=== PATIENT | male | born 1970 | race Two or more races ===

== ENCOUNTER 2021-01-19 16:15 | Outpatient (REF) | payer MEDICAID, SELFPAY ==
--- NOTE | ~2021-01-19 | US_ITS ---
EXAMINATION: US VENOUS ULTRASOUND WITH DOPPLER LOWER EXTREMITY, LEFT CLINICAL INFORMATION: Localized edema. Pain. COMPARISON: None TECHNIQUE: Ultrasound of the deep veins is performed from the hip to the calf with compression sonography and color and pulse Doppler assessment. Spectral analysis with color-flow imaging is performed. FINDINGS: There is normal venous compression and respiratory variation and augmented flow. The visualized common femoral vein, superficial femoral vein, profunda femoral vein, popliteal vein, and the trifurcation region shows no evidence of deep venous thrombosis. There is no significant popliteal fossa cyst. If the patient's symptoms persist, followup ultrasound in 5 days 7 days might be of value to exclude proximal propagation from a non-visualized calf vein. US/US venous duplex LE LT IMPRESSION: No DVT demonstrated in the left lower extremity.
== END 2021-01-19 16:16 | disposition home or self-care (01) ==
LOC: HO.US 16:15
PROVIDERS: PCP Internal Medicine Geriatric Medicine; Visit Provider Internal Medicine Geriatric Medicine
DX: R60.0 Localized edema (principal)
CPT/HCPCS: 93971

== ENCOUNTER 2023-07-22 10:05 | Outpatient (REF) | payer MEDICAID, SELFPAY ==
--- NOTE | ~2023-07-22 | XR_ITS ---
EXAMINATION: XR ELBOW, RIGHT CLINICAL INFORMATION: Lateral epicondylitis of right elbow. Pain no injury COMPARISON: None available. TECHNIQUE: AP, lateral, and oblique views of the right elbow. FINDINGS: No significant joint effusion identified. Alignment maintained. Small soft tissue calcifications inferior to the medial epicondyle. XR/XR elbow RT min 3V IMPRESSION: Small soft tissue calcifications inferior to the medial epicondyle, possibly related to epicondylitis. Correlation with clinical exam recommended. Recommend follow-up imaging in 10-14 days if fracture is suspected.
== END 2023-07-22 10:06 | disposition home or self-care (01) ==
LOC: HO.HHCX 10:05
PROVIDERS: Visit Provider Internal Medicine Geriatric Medicine
DX: M77.11 Lateral epicondylitis, right elbow (principal)
CPT/HCPCS: 36415; 73080; 80053; 80061; 85025; 86803; 87389

== ENCOUNTER 2023-07-22 10:26 | Outpatient (REF) | payer MEDICAID, SELFPAY ==
[2023-07-22 11:27] LABS: MANUAL DIFF FLAG NO
[2023-07-22 11:41] LABS: Basophils Percent Auto 0.6 % (0-2); Eosinophils Absolute Auto 0.1 X10*3/uL (0.0-0.4); Hematocrit 47.7 % (42.0-52.0); Hemoglobin 15.3 g/dl (14.0-18.0); Imm Gran Abs Auto 0.02 X10*3/uL (0.00-0.03); Imm Gran Pct Auto 0.3 % (0.0-0.4); Lymphocytes Absolute Auto 1.6 X10*3/uL (1.2-4.9); Mean Corpuscular HGB Conc 32.1 g/dl (31.0-36.0); Mean Corpuscular Hemoglobin 27.8 pg (27.0-33.0); Mean Corpuscular Volume 86.7 fL (80.0-98.0); Mean Platelet Volume 10.8 fL (9.4-12.4); Monocytes Absolute Auto 0.6 X10*3/uL (0.1-1.2); Monocytes Percent Auto 9.1 % (2-11); Neutrophils Absolute Auto 4.4 x10*3/uL (2.0-8.3); Platelet Count 213 X10*3/uL (160-400); Red Cell Distribution Width 13.9 % (11.0-16.0); White Blood Count 6.7 X10*3/uL (4.8-10.8)
[2023-07-22 12:46] LABS: Alanine Aminotransferase 26 U/L (0-40); Albumin Level 4.4 g/dL (3.5-5.0); Alkaline Phosphatase 95 U/L (39-117); Anion Gap 14 (12-20); Aspartate Amino Transferase 22 U/L (5-37); Bilirubin Total 0.4 mg/dL (0.0-1.0); Blood Urea Nitrogen 13 mg/dL (9-16); Calcium 9.8 mg/dL (8.4-10.2); Carbon Dioxide 25 mmol/L (22-29); Chloride 106 mmol/L (96-108); Cholesterol 203 mg/dL (<200); Estimated Glomerular Filt Rate > 60; Glucose Random 90 mg/dL (60-115); HDL Cholesterol 51 mg/dL (>40); LDL Cholesterol Calculated 129 mg/dL (<100); Potassium 3.7 mmol/L (3.3-5.1); Sodium 141 mmol/L (135-145); Total Protein 7.4 g/dL (6.5-8.0); Triglycerides 119 mg/dL (<150)
[2023-07-23 08:19] LABS: HIV AB/AG Nonreactive (Nonreactive); HIV Num 1 0.05 S/CO (0.00-0.99); ~HepC Num1 0.03 S/CO (0.00-0.79); ~Hepatitis C Antibody Nonreactive (Nonreactive)
== END 2023-07-22 10:27 | disposition home or self-care (01) ==
LOC: HO.HHCL 10:26
PROVIDERS: Visit Provider Internal Medicine Geriatric Medicine
DX: I10 Essential (primary) hypertension (principal); E78.00 Pure hypercholesterolemia, unspecified; Z11.59 Encounter for screening for other viral diseases; Z11.4 Encounter for screening for human immunodeficiency virus [HIV]
CPT/HCPCS: 36415; 80053; 80061; 85025; 86803; 87389

== ENCOUNTER 2024-02-09 16:31 | Outpatient (REF) | payer MEDICAID, SELFPAY ==
[2024-02-09 18:10] LABS: Anion Gap 12 (12-20); Blood Urea Nitrogen 18 mg/dL (9-16); Calcium 9.7 mg/dL (8.4-10.2); Carbon Dioxide 25 mmol/L (22-29); Chloride 109 mmol/L (96-108); Estimated Glomerular Filt Rate > 60; Glucose Random 75 mg/dL (60-115); Potassium 3.3 mmol/L (3.3-5.1); Sodium 143 mmol/L (135-145)
== END 2024-02-09 16:32 | disposition home or self-care (01) ==
LOC: HO.HHCL 16:31
PROVIDERS: Visit Provider Internal Medicine Geriatric Medicine
DX: I10 Essential (primary) hypertension (principal)
CPT/HCPCS: 36415; 80048

== ENCOUNTER 2024-11-05 14:23 | Outpatient (AMB) | payer OTHER, SELFPAY ==
--- NOTE | 2024-11-05 14:36 | MHC.OFFVIS ---
Vital Signs 11/05/24 14:44 Height 6 ft 1 in Weight 223 lb 8 oz BMI 29.5 BP 141/91 H Blood Pressure Location Lt brachial Position Sitting Pulse 68 Pulse Source Pulse Oximeter Intake Visit Reasons: Chronic low back pain Intake Note: Pain today 04/07 Allergies No Known Allergies Allergy (Verified 11/05/24 14:41) HPI HPI Chronic low back pain: Details: Patient is a pleasant 54 years old male with history of chronic low back pain and chronic left sacroiliac joint pain, presents for chronic low back pain with left radiculopathy. Denies any recent injury, trauma, or falls. Patient completed multiple courses of physical therapy, continues ongoing home exercise therapy at home and takes gabapentin, NSAID and Percocet with continued symptoms and daily low back pain at rest, sleep and with activities. He was seen in our office in 2019 and underwent therapeutic left SI joint injection which provided him about 50-60% pain relief for 3 months. Patient was not able to continue with our office due to loss of insurance. 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 He is not able to continue swimming or Basketball. Back pain increases with flexion forward, changing positions, prolonged sitting or standing or sleeping on the left side. Denies any fever or chills, abdominal and groin pain, foot drop, bladder or bowel dysfunction, or saddle anesthesia. Past Procedures: 12/14/2019: Left Therapeutic SI joint [id number] pain relief for 3 months Location: Lower back radiates down left buttock and into left leg Duration: Chronic pain for many years Characteristics of symptom or complaint: Aching, sharp, stabbing, pinching, radiating Aggravating or associated factors: Sitting for long periods of time, changing positions, Relieving factors: Gabapentin, Oxycodone, Tylenol, Ibuprofen, OTC patches/creams Treatment: PT, left SI injections (2019-Dr. Choudhary) HPI Comments Details: [facility] Medical History (Updated 11/05/24 @ 15:23 by TONI Eastman) Depression with anxiety Hypertension Chronic sacroiliac joint pain Chronic left-sided lumbar radiculopathy Social History (Updated 11/05/24 @ 14:39 by Dulce Guerra) Alcohol intake: current Alcohol type: wine Patient Tobacco Use Status: Never used Tobacco Review of Systems Const All systems reviewed & are unremarkable except as noted in HPI and below Physical Exam Vital Signs: Last Vital Signs Pulse 68 11/05/24 14:44 BP 141/91 H 11/05/24 14:44 BMI result Body Mass Index 29.5 General: Appears afebrile. Alert and oriented. Mood and affect appropriate. Follows and participates in conversation appropriately. Respiratory effort is unlabored. No cough. No nasal discharge. Able to transition from sit to stand unassisted. Ambulates with bilaterally normal heel strike and toe off. General: Yes no CVA tenderness Back/Spine/Pelvis Other: Patient is able to walk and stand on heels and tip toes with mild difficulty on the left otherwise demonstrating good motor tone. No limping. Can flex forward to 70-75 degrees and extend to 5-10 degrees before experiencing lumbar pain. Demonstrates 5/5 right and 4/5 left strength of quadriceps bilaterally as well as flexion/dorsiflexion of bilateral feet against resistance. 2+ pedal pulses bilaterally. Straight leg rise with dorsiflexion is negative bilaterally. +2 right +1 left patellar and +1 achilles reflexes bilaterally. Facet loading test positive bilaterally. Arlen sign, Jose?s, Gaenslen, Pelvic compression and Stinchfield tests are positive on the left. No groin pain with I/E hip rotations. No tenderness in the bilateral GTB areas. Valsalva maneuver is negative. Back: no CVA tenderness Cervical Spine: cervical ROM normal, cervical muscular tenderness, No Cervical spine tenderness and No step off deformity Thoracic/Lumbar Spine: thoracic and lumbar spine normal to inspection, No Thoracic/lumbar spine scar(s), Lasegue's sign negative, straight leg raise negative bilaterally, pain with thoraco-lumbar ROM, paraspinal muscle tenderness, thoraco-lumbar ROM limited, No thoracic spinal tenderness and lumbar spinal tenderness (L4-S1) Pelvis: buttock tenderness on the left and sciatic notch tenderness on the left Sacroiliac joints: bilaterally tender to palpation Results Reviewed Results Reviewed: XR LUMBOSACRAL SPINE WITH OBLIQUES 10/06/2019 CLINICAL INFORMATION: Radiculopathy, lumbar region. No injury. COMPARISON: No relevant prior imaging. TECHNIQUE: 5 views FINDINGS: Alignment is normal. Vertebral heights are preserved. No acute fracture. Intervertebral disc spaces are maintained at all levels. Sacroiliac joints are symmetric. Visualized bowel gas pattern is normal. IMPRESSION: Unremarkable lumbar spine radiograph Assessment & Plan Assessment & Plan (1) Lumbosacral spondylosis: Code(s): M47.817 - Spondylosis without myelopathy or radiculopathy, lumbosacral region Category: Medical (2) Chronic sacroiliac joint pain: Code(s): M53.3 - Sacrococcygeal disorders, not elsewhere classified; G89.29 - Other chronic pain Category: Medical (3) Chronic left-sided lumbar radiculopathy: Code(s): M54.16 - Radiculopathy, lumbar region Category: Medical (4) Lumbosacral spondylosis: Code(s): M47.817 - Spondylosis without myelopathy or radiculopathy, lumbosacral region Category: Medical (5) Numbness and tingling of left upper and lower extremity: Code(s): R20.0 - Anesthesia of skin; R20.2 - Paresthesia of skin Category: Medical Plan Lumbar spine and sacroiliac joint imaging to assess degree of degenerative changes, any subluxation, listhesis, compression fractures or pars defects and MRI of the lumbar spine to assess for neural integrity and compression to evaluate on acute on chronic left sided radiculopathy and SI joint pain. Patient is taking gabapentin, NSAID, and opioid medications, heat therapy, completed multiple courses of PT, and ongoing home exercise therapy, with continued symptoms. Patient will return to the clinic to discuss results of the MRI findings when it is done and consider interventional therapy as indicated. All questions been answered and patient agreed with the treatment plan. Follow-up for MRI/x-ray results and sooner. Orders: Orders XR lumbar spine 4V min Today G89.29 - Other chronic pain, M47.817 - Spondylosis without myelopathy or radiculopathy, lumbosacral region, M53.3 - Sacrococcygeal disorders, not elsewhere classified MR lumbar spine wo con Today M47.817 - Spondylosis without myelopathy or radiculopathy, lumbosacral region, M54.16 - Radiculopathy, lumbar region, R20.0 - Anesthesia of skin, R20.2 - Paresthesia of skin XR sacroiliac joint min 3V Today G89.29 - Other chronic pain, M47.817 - Spondylosis without myelopathy or radiculopathy, lumbosacral region, M53.3 - Sacrococcygeal disorders, not elsewhere classified Coding Level of Care Code New Pt Level 4 (33859) Complex EM visit Add On G2211 Diagnoses Lumbosacral spondylosis M47.817 Chronic sacroiliac joint pain M53.3; G89.29 Chronic left-sided lumbar radiculopathy M54.16 Numbness and tingling of left upper and lower extremity R20.0; R20.2
[2024-11-05 14:44] VITALS: BP 141/91; PULSE 68; BMI 29.5
== END 2024-11-05 15:09 | disposition home or self-care (01) ==
PROVIDERS: PCP Internal Medicine Geriatric Medicine; Visit Provider Nurse Practitioner Family
DX: M47.817 Spondylosis without myelopathy or radiculopathy, lumbosacral region (principal); M53.3 Sacrococcygeal disorders, not elsewhere classified; G89.29 Other chronic pain; M54.16 Radiculopathy, lumbar region; R20.0 Anesthesia of skin; R20.2 Paresthesia of skin
CPT/HCPCS: 99204

== ENCOUNTER → 2024-11-05 14:23 | Outpatient (BNVA) | payer OTHER, SELFPAY | PROVIDERS: PCP Internal Medicine Geriatric Medicine; Visit Provider Nurse Practitioner Family ==

== ENCOUNTER 2024-11-05 15:17 | Outpatient (REF) | payer OTHER, SELFPAY ==
--- NOTE | ~2024-11-05 | XR_ITS ---
CLINICAL HISTORY: M47.817 - Spondylosis without myelopathy or radiculopathy, lumbosacral r... 5 views lumbar spine Comparison: None Findings: Normal vertebral body alignment. No acute fractures or dislocation. No significant degenerative change. IMPRESSION: No acute findings. This document has been electronically signed by: Arpit Moyer MD on 11/09/2024 07:01:24
--- NOTE | ~2024-11-05 | XR_ITS ---
CLINICAL HISTORY: M47.817 - Spondylosis without myelopathy or radiculopathy, lumbosacral r... 3 views sacroiliac joints Comparison: None Findings No acute fractures. No significant degenerative change. No erosions. IMPRESSION: No acute findings This document has been electronically signed by: Arpit Moyer MD on 11/09/2024 07:15:07
--- OUTSIDE RECORDS SUMMARY | 2024-11-05 15:20 | XMS_ITS | Encounter Summary ---
Author Organization [employer] Address [address] [place] [address] 7t [place] [address] Care Team Providers Care Customer Contact Representative Name Role Phone Name, Osbaldo RASCON Primary Care Provider [phone] Reason for Visit * Reason Onset Date Comments Med Refill 03/29/2024 Encounter Details Date Type Department Care Team (Late st Contact Info) Description 03/29/2024 Refill [facility] [address] [place], [place] [phone] Betsy Nino MD [address] [place], [place] [phone] Allergic rhinitis, unspecified seasonality, unspecified trigger Social History Tobacco Use Types Packs/Day Years Used Date Smoking Tobacco: Never Alcohol Use Standard Drinks/Week Comments Yes 0 (1 standard drink = 0.6 oz pur e alcohol) occassional Depression Answer Date Recorded Patient Health Questionnaire-9 Score 0 02/09/2024 Patient Health Questionnaire-9 Score 0 02/09/2024 Last PHQ-9: Questionnaire Data Not on file 0 02/09/2024 Housing Stability Answer Date Recorded What is your housing situation today? I have christina nunez 02/09/[address] you li ve. Do you have problems with any of the following? None of the above 02/09/2024 Food Insecurity Answer Date Recorded Within the past 12 months, y ou worried that your food would run out before you got money to buy more: Never True 02/09/2024 Within the past 12 months,th e food you bought just didn't last and you didn't have enough money to get more: Never True Transportation Answer Date Recorded In the past 12 months, has l ack of transportation kept you from medical appts, meetings, work or from getting things needed for daily living? No 02/09/2024 Utilities Answer Date Recorded In the past 12 months, has t he electric, gas, oil or water company threatened to shut off services in your home? No 02/09/2024 Depression Answer Date Recorded Patient Health Questionnaire-2 Score 0 02/09/2024 Sex and Gender Information Value Date Recorded Sex Assigned at Male 07/29/2022 10:31 AM EDT Legal Sex Male 10:31 AM EDT Gender Identity Male 07/29/2022 10:31 AM EDT Sexual Orientation Straight 07/29/2022 10 :31 AM EDT documented as of this encounter Plan of Treatment Upcoming Encounters Date Type Department Care Team (Late st Contact Info) Description 12/29/2024 9:00 AM EDT Clinical Support [facility] [address] [place] [id number] Juliana Pinedo RN documented as of this encounter Goals Goal Patient Goal Type Associated Problems Recent Progress Patient-Stated? Author Record your blood pressure once per day Blood Pressure No PuLilian ramirez, PharmD Blood Pressure < 140/90 Blood Pressure 134/84( 025 9:22 AM EST) No Lilian Baugh, PharmD documented as of this encounter Visit Diagnoses Diagnosis Allergic rhinitis, unspecified seasonality, unspecified trigger documented in this encounter Additional Health Concerns Assessment Noted Time PHQ-9 Depression Total Score: 0 02/09/20 24 3:17 PM EDT documented as of this encounter Care Teams Customer Contact Representative Relationship Specialty Start Date End Date Name, MD Osbaldo [address] [place] [id number] PCP - General Family Medicine 09/02/19 documented as of this encounter
--- OUTSIDE RECORDS SUMMARY | 2024-11-05 15:20 | XMS_ITS | Encounter Summary ---
Author Organization [employer] Address [address] [place] [address] 7[address] [place] [address] Care Team Providers Care Locomotive Lubricating Systems Clerk Name Role Phone Name, Osbaldo RASCON Primary Care Provider [phone] Reason for Visit * Reason Onset Date Comments Med Refill 11/01/2024 Encounter Details Date Type Department Care Team (Late st Contact Info) Description 11/01/2024 Refill [facility] [address] [place], [place] [phone] Name, MD Osbaldo [address] [place] [address] Chronic low back pain, unspecified back pain laterality, unspecified whether sciatica present Social History Tobacco Use Types Packs/Day Years [...] AM EDT documented as of this encounter Miscellaneous Notes * Addendum Note - Favian Pinedo RN - 11/02/2024 11:28 AM ESTAddended by: FAVIAN PINEDO on: 11/02/2024 11:28 AM Modules accepted: Orders * Telephone Encounter - Marya Weston LPN - 11/01/2024 1:05 PM EST Received request on oxyCODONE-acetaminophen (Percocet) 10-325 MG tablet documented in this encounter Plan of Treatment Upcoming Encounters Date Type Department Care Team (Late st Contact Info) Description 12/29/2024 9:00 AM EDT Clinical Support [facility] [address] [place] [phone] Favian Pinedo RN documented as of this encounter Goals Goal Patient Goal Type Associated Problems Recent Progress Patient-Stated? Author Record your blood pressure once per day Blood Pressure No Lilian Baugh PharmD Blood Pressure < 140/90 Blood Pressure 134/84( 025 9:22 AM EST) No Lilian Baugh PharmD documented as of this encounter Visit Diagnoses Diagnosis Chronic low back pain, unspecified back pain laterality, unspecified whether sciatica present documented in this encounter Additional Health Concerns Assessment Noted Time PHQ-9 Depression Total Score: 0 02/09/20 24 3:17 PM EDT documented as of this encounter Care Teams Locomotive Lubricating Systems Clerk Relationship Specialty Start Date End Date Name, MD Osbaldo [address] [place] [address] PCP - General Family Medicine 09/02/19 documented as of this encounter
--- OUTSIDE RECORDS SUMMARY | 2024-11-05 15:20 | XMS_ITS | Encounter Summary ---
Author Organization [employer] Address [address] [place] [address] 7t [place] [address] Care Team Providers Care Industrial Coffee Grinder Name Role Phone Name, Osbaldo RASCON Primary Care Provider [phone] Lilian Baugh PharmD Unavailable [phone] Reason for Visit * Reason Comments Med Refill Encounter Details Date Type Department Care Team (Late st Contact Info) Description 03/03/2023 Refill [facility] [address] [place], [place] [phone] Name, MD sObaldo [address] [place] [address] Lumbago with sciatica, left side Social History Tobacco Use Types Packs/Day Years Used Date Smoking Tobacco: Never Alcohol Use Standard Drinks/Week Comments Never 0 (1 standard drink = 0.6 oz pur e alcohol) Depression Answer Date Recorded Patient Health Questionnaire-9 Score 8 01/20/2023 Depression Answer Date Recorded Patient Health Questionnaire-2 Score 2 01/20/2023 Sex and Gender Information Value Date Recorded Sex Assigned at Male 07/29/2022 10:31 AM EDT Legal Sex Male 10:31 AM EDT Gender Identity Male 07/29/2022 10:31 AM EDT Sexual Orientation Straight 07/29/2022 10 :31 AM EDT COVID-19 Exposure Response Date Recorded In the last 10 days, have yo u been in contact with someone who was confirmed or suspected to have Coronavirus/COVID-19? No / Unsure 02/04/2023 6:57 AM EDT documented as of this encounter Plan of Treatment Upcoming Encounters Date Type Department Care Team (Late st Contact Info) Description 12/29/2024 9:00 AM EDT Clinical Support [facility] [address] [place] [address] Juliana Pinedo, RN documented as of this encounter Visit Diagnoses Diagnosis Lumbago with sciatica, left side documented in this encounter Additional Health Concerns Assessment Noted Time PHQ-9 Depression Total Score: 8 01/21/20 23 3:35 PM EDT documented as of this encounter Care Teams Industrial Coffee Grinder Relationship Specialty Start Date End Date Name, MD Osbaldo [address] [place] [id number] PCP - General Family Medicine 09/02/19 Lilian Baugh PharmD [address] [place] [phone] Pharmacist Internal Medicine 05/02/23 02/24/24 documented as of this encounter
--- OUTSIDE RECORDS SUMMARY | 2024-11-05 15:20 | XMS_ITS | Encounter Summary ---
Author Organization [employer] Address [address] [place] [address] 7[address] [place] [address] Care Team Providers Care Lead Miner Blasting Name Role Phone NameOsbaldo MD Primary Care Provider [phone] Lilian Baugh PharmD Unavailable [phone] Reason for Visit * Reason Onset Date Comments Med Refill 01/29/2024 Encounter Details Date Type Department Care Team ([facility] st Contact Info) Description 01/29/2024 Refill [facility] [address] [place], [place] [phone] Name, MD Osbaldo [address] [place] [address] Social History Tobacco Use Types Packs/Day Years Used Date Smoking Tobacco: Never Alcohol Use Standard Drinks/Week Comments Yes 0 (1 standard drink = 0.6 oz pur e alcohol) occassional Depression Answer Date Recorded Patient Health Questionnaire-9 Score 8 01/20/2023 Housing Stability Answer Date Recorded What is your housing situation today? I have christina nunez 07/21/[address] you li ve. Do you have problems with any of the following? None of the above 07/21/2023 Food Insecurity Answer Date Recorded Within the past 12 months, y ou worried that your food would run out before you got money to buy more: Never True 07/21/2023 Within the past 12 months,th e food you bought just didn't last and you didn't have enough money to get more: Never True Transportation Answer Date Recorded In the past 12 months, has l ack of transportation kept you from medical appts, meetings, work or from getting things needed for daily living? No 07/21/2023 Utilities Answer Date Recorded In the past 12 months, has t he electric, gas, oil or water company threatened to shut off services in your home? No 07/21/2023 Depression Answer Date Recorded Patient Health Questionnaire-2 [...] Description 12/29/2024 9:00 AM EDT Clinical Support [facility] [address] [place] [address] Juliana Pinedo RN documented as of this encounter Goals Goal Patient Goal Type Associated Problems Recent Progress Patient-Stated? Author Record your blood pressure once per day Blood Pressure No Puia, Lilian, PharmD Blood Pressure < 140/90 Blood Pressure 134/84( 025 9:22 AM EST) No Puia, Lilian, PharmD documented as of this encounter Visit Diagnoses Not on filedocumented in this encounter Additional Health Concerns Assessment Noted Time PHQ-9 Depression Total Score: 8 01/21/20 23 3:35 PM EDT documented as of this encounter Care Teams Lead Miner Blasting Relationship Specialty Start Date End Date Name, MD Osbaldo [address] [place] [id number] PCP - General Family Medicine 09/02/19 Puia, Lilian, PharmD [address] [place] [phone] Pharmacist Internal Medicine 05/02/23 02/24/24 documented as of this encounter
--- OUTSIDE RECORDS SUMMARY | 2024-11-05 15:20 | XMS_ITS | Encounter Summary ---
Author Organization [employer] Address [address] [place] [address] 7t [place] [address] Care Team Providers Care Hat Brusher Machine Name Role Phone NameOsbaldo MD Primary Care Provider [phone] Lilian Baugh PharmD Unavailable [phone] Reason for Visit * Reason Comments Med Refill Encounter Details Date Type Department Care Team (Late st Contact Info) Description 09/06/2022 Refill [facility] [address] [place] [phone] NameOsbaldo MD [address] [place] [phone] Asthma, unspecified asthma severity, unspecified whether complicated, unspecified whether persistent (Primary Dx); Lumbago with sciatica, left side Social History Tobacco Use Types Packs/Day Years Used Date Smoking Tobacco: Never Assessed Sex and Gender Information Value Date Recorded Sex Assigned at Male 07/29/2022 10:31 AM EDT Legal Sex Male 10:31 AM EDT Gender Identity Male 07/29/2022 10:31 AM EDT Sexual Orientation Straight 07/29/2022 10 :31 AM EDT documented as of this encounter Plan of Treatment Upcoming Encounters Date Type Department Care Team (Late st Contact Info) Description 12/29/2024 9:00 AM EDT Clinical Support [facility] [address] [place] [phone] Juliana Pinedo RN documented as of this encounter Visit Diagnoses Diagnosis Asthma, unspecified asthma severity, unspecified whether complicated, unspecified whether persistent- Primary Lumbago with sciatica, left side documented in this encounter Care Teams Hat Brusher Machine Relationship Specialty Start Date End Date Osbaldo Gentile MD [address] [place] [address] PCP - General Family Medicine 09/02/19 Lilian Baugh, Anastasia [address] [place] [address] Pharmacist Internal Medicine 05/02/23 02/24/24 documented as of this encounter
--- OUTSIDE RECORDS SUMMARY | 2024-11-05 15:20 | XMS_ITS | Encounter Summary ---
Author Organization [employer] Address [address] [place] [address] 7t [place] [address] Care Team Providers Care Psychologist Engineering Name Role Phone Osbaldo Gentile MD Primary Care Provider [phone] Reason for Referral * Consultation (Routine) - Pending Review Specialty Diagnoses / Procedures Referred By Rody t Referred To Contact Urology Diagnoses BPH associated with nocturia Osbaldo Gentile MD [address] [place] [address] Phone: tel: fax: [facility] [address] [place] [address] Drive [address] [place], [place] Phone: tel: fax: Referral ID Status Reason Start Date Expiration Date Visits Requested Visits Authorized [id number] Pending Review Specialty Services Required 10/19/2024 10/19/2025 1 1 * Consultation (Routine) - Pending Review Specialty Diagnoses / Procedures Referred By Contac t Referred To Contact Pain Medicine Diagnoses Chronic low back pain with sciatica, sciatica laterality unspecified, unspecified back pain laterality Osbaldo Gentile MD [address] [place] [address] Phone: tel: fax: [facility] [address] [place] [address] Phone: tel: fax: Referral ID Status Reason Start Date Expiration Date Visits Requested Visits Authorized [id number] Pending Review Specialty Services Required 10/19/2024 10/19/2025 1 1 Reason for Visit * Reason Comments Follow-up Encounter Details Date Type Department Care Team ([facility] st Contact Info) Description 10/19/2024 9:15 AM EST Office Visit [facility] [address] [facility] [place] [address] NameOsbaldo MD [address] [facility] [place] [address] Essential hypertension (Primary Dx); Moderate persistent asthma, unspecified whether complicated; Chronic low back pain with sciatica, sciatica laterality unspecified, unspecified back pain laterality; Other male erectile dysfunction; BPH associated with nocturia; Healthcare maintenance Social History Tobacco Use Types Packs/Day Years [...] AM EDT documented as of this encounter Last Filed Vital Signs Vital Sign Reading Time Taken Comments Blood Pressure 134/84 10/19/2024 9:22 AM EST Pulse 71 10/19/2024 9:22 AM EST Temperature 36.3 ??C (97.3 ??F) 10/19/2024 9:22 AM ES T Respiratory Rate 16 10/19/2024 9:22 AM EST Oxygen Saturation 97% 10/19/2024 9:22 AM EST Inhaled Oxygen Concentration - - Weight 103 kg (226 lb) 10/19/2024 9:22 AM EST Height 185.4 cm (6' 1 ) 10/19/2024 9:22 AM EST Body Mass Index 29.82 10/19/2024 9:22 AM EST documented in this encounter Progress Notes * Osbaldo Gentile MD - 10/19/2024 9:15 AM EST Subjective Patient ID: Hank Bess is a 54 y.o. male who presents for Follow-up. Patient comes for a follow up visit and we discussed several issues. BP is well controlled on his current meds. He is using meds daily. He tells me had asthma symptoms last week. Currently no cough or wheezing or SOB but using Albuterol often. He ran out of VeraLightair weeks ago He suffers with chronic low back pain and asked for referral to the [facility] pain clinic. He was seen there in the past but was lost to follow up due to not having insurance. No leg weakness, no associated GI or complaints and no recent trauma. He asked for another referral to urology due to persistent nocturia despite the use of Flomax. I referred him in the past but this was canceled due to lack of insurance. He tells me he has upcoming appointment for colonoscopy in March and that he plans to keep. Review of Systems Constitutional: Negative for chills, fatigue and fever. HENT: Negative for sore throat. Respiratory: Negative for cough, chest tightness and shortness of breath. Cardiovascular: Negative for chest pain, palpitations and leg swelling. Gastrointestinal: Negative for abdominal pain and blood in stool. Musculoskeletal: Positive for back pain. Visit Vitals BP 134/84 (BP Location: Right arm, Patient Position: Sitting, BP Cuff Size: Large adult) Pulse 71 Temp 97.3 ??F (36.3 ??C) (Temporal) Resp 16 Ht 6' 1 (1.854 m) Wt 226 lb (103 kg) SpO2 97% BMI 29.82 kg/m?? Smoking Status Never BSA 2.3 m?? Objective Physical Exam Constitutional: Appearance: Normal appearance. Cardiovascular: Rate and Rhythm: Normal rate and regular rhythm. Heart sounds: No murmur heard. Pulmonary: Effort: Pulmonary effort is normal. No respiratory distress. Breath sounds: No wheezing, rhonchi or rales. Abdominal: Palpations: Abdomen is soft. Tenderness: There is no abdominal tenderness. Musculoskeletal: Right lower leg: No edema. Left lower leg: No edema. Neurological: Mental Status: He is alert. Assessment/Plan Diagnoses and all orders for this visit: Essential hypertension Comments: Continue current medications. Moderate persistent asthma, unspecified whether complicated Comments: Continue current inhalers. I refilled his Advair. Orders: - albuterol (2.5 MG/3ML) 0.083% nebulizer solution; INHALE 1 AMPULE USING A NEBULIZER THREE TIMES DAILY - fluticasone-salmeterol (Advair HFA) 115-21 MCG/ACT inhaler; INHALE 2 PUFFS BY MOUTH TWICE DAILY RINSE MOUTH AFTER USING. Chronic low back pain with sciatica, sciatica laterality unspecified, unspecified back pain laterality Comments: Continue current dose of pain medication. Referral back to [facility] pain clinic. Orders: - Referral to Pain Medicine; Future Other male erectile dysfunction Comments: The patient asked me to discontinue Viagra and prescribe Cialis instead and I agree. Referral to urology. BPH associated with nocturia Comments: Referral to urology. Orders: - Referral to Urology; Future Healthcare maintenance Comments: Colonoscopy scheduled for April 05 Other orders - albuterol (Ventolin HFA) 108 (90 Base) MCG/ACT inhaler; INHALE 2 PUFFS BY MOUTH EVERY 4 TO 6 HOURS NEEDED - tadalafil (Cialis) 20 MG tablet; Take 1 tablet (20 mg) by mouth if needed each day for erectile dysfunction. documented in this encounter Plan of Treatment Upcoming Encounters Date Type Department Care Team (Late st Contact Info) Description 12/29/2024 9:00 AM EDT Clinical Support [facility] [address] [place] [address] Juliana Pinedo, TOÑO Scheduled Referrals Name Type Priority Associated Diagnoses Orde r Schedule Referral to Pain Medicine Outpatient Referral Routine Chronic low back pain with sciatica, sciatica laterality unspecified, unspecified back pain laterality Expected: 10/19/2024 (Approximate), Expires: 10/19/2025 Referral to Urology Outpatient Referral Routine BPH associated with nocturia Expected: 10/19/2024 (Approximate), Expires: 10/19/2025 documented as of this encounter Goals Goal Patient Goal Type Associated Problems Recent Progress Patient-Stated? Author Record your blood pressure once per day Blood Pressure No Puia, Lilian, PharmD Blood Pressure < 140/90 Blood Pressure 134/84( 025 9:22 AM EST) No Puia, Lilian, PharmD documented as of this encounter Visit Diagnoses Diagnosis Essential hypertension- Primary Unspecified essential hypertension Moderate persistent asthma, unspecified whether complicated Chronic low back pain with sciatica, sciatica laterality unspecified, unspecified back pain laterality Other male erectile dysfunction BPH associated with nocturia Healthcare maintenance documented in this encounter Additional Health Concerns Assessment Noted Time PHQ-9 Depression Total Score: 0 02/09/20 24 3:17 PM EDT documented as of this encounter Care Teams Psychologist Engineering Relationship Specialty Start Date End Date Name, MD Osbaldo [address] [place] [address] PCP - General Family Medicine 09/02/19 documented as of this encounter
--- OUTSIDE RECORDS SUMMARY | 2024-11-05 15:20 | XMS_ITS | Encounter Summary ---
Author Organization [employer] [facility] Address [address] [place] [address] 7t [place] [address] Care Team Providers Care Furniture Stainer Name Role Phone Name, Osbaldo RASCON Primary Care Provider [phone] Lilian Baugh PharmD Unavailable [phone] Reason for Visit * Reason Comments Med Refill Encounter Details Date Type Department Care Team (Late Contact Info) Description 05/25/2023 Refill [facility] [address] [place] [address] [phone] Name, MD Osbaldo [address] [place] [address] Social History Tobacco Use Types Packs/Day Years [...] Description 12/29/2024 9:00 AM EDT Clinical Support [facility] [address] [place] [address] [phone] Juliana Pinedo RN documented as of this encounter Goals Goal Patient Goal Type Associated Problems Recent Progress Patient-Stated? Author Record your blood pressure once per day Blood Pressure No Lilian Baugh, PharmD Blood Pressure < 140/90 Blood Pressure 134/84( 025 9:22 AM EST) No Lilian Baugh PharmD documented as of this encounter Visit Diagnoses Not on filedocumented in this encounter Additional Health Concerns Assessment Noted Time PHQ-9 Depression Total Score: 8 01/21/20 23 3:35 PM EDT documented as of this encounter Care Teams Furniture Stainer Relationship Specialty Start Date End Date Name, MD Osbaldo [address] [place] [address] PCP - General Family Medicine 09/02/19 Lilian Baugh PharmD [address] [place] [address] Pharmacist Internal Medicine 05/02/23 02/24/24 documented as of this encounter
--- OUTSIDE RECORDS SUMMARY | 2024-11-05 15:20 | XMS_ITS | Encounter Summary ---
Author Organization [employer] Address [address] [place] [address] 7t [place] [address] Care Team Providers Care Formula Weigher Name Role Phone Name, Osbaldo RASCON Primary Care Provider [phone] Reason for Visit * Reason Onset Date Comments Med Refill 10/06/2024 Encounter Details Date Type Department Care Team (Late st Contact Info) Description 10/06/2024 Refill [facility] [address] [place] [address] Name, MD Osbaldo [address] [place] [address] Chronic low back pain, unspecified back pain [...] as of this encounter Miscellaneous Notes * Telephone Encounter - [place] Scooter - 10/06/2024 3:44 PM EST TC from pt requesting medication refill. Medications needing refill : oxyCODONE-acetaminophen (Percocet) 10-325 MG tablet To be sent to: [facility] documented in this encounter Plan of Treatment Upcoming Encounters Date Type Department Care Team (Late st Contact Info) Description 12/29/2024 9:00 AM EDT Clinical Support [facility] [address] [place] [address] Juliana Pinedo RN documented as of this [...] documented as of this encounter Care Teams Formula Weigher Relationship Specialty Start Date End Date Name, MD Osbaldo [address] [place] [address] PCP - General Family Medicine 09/02/19 documented as of this encounter
--- OUTSIDE RECORDS SUMMARY | 2024-11-05 15:20 | XMS_ITS | Encounter Summary ---
Author Organization [employer] Address [address] [place] [address] 7t [place] [address] Care Team Providers Care Vice President Investor Relations Name Role Phone Name, Osbaldo RASCON Primary Care Provider [phone] Reason for Visit * Reason Onset Date Comments Chart prep 10/11/2024 Encounter Details Date Type Department Care Team ([facility] st Contact Info) Description 10/11/2024 Telephone [facility] [address] [place] [address] Sharmaine Lim MA Chart prep Social History Tobacco Use Types Packs/Day Years [...] encounter Miscellaneous Notes * Telephone Encounter - Sharmaine Lim MA - 10/11/2024 9:54 AM EST Chart Prep Labs: done Images: done Vaccines due: yes Referrals: appt cancelled Referral cancelled due to typewriter ribbon winder or front office specialist unable to verify patients insurance. Per front office specialist Tawnya spoke with patient and patient denied any [employer] plan and stated he has [employer] for years and wouldn't have anything else. Once front office specialist tried to run insurance it came back inactive. Patient denies [employer] insurance. Unable to proceed with referral. Message sent to referring provider. Screenings: colonoscopy Overdue care gaps: Sbirt documented in this encounter Plan of Treatment Upcoming Encounters Date Type Department Care Team (Late st Contact Info) Description 12/29/2024 9:00 AM EDT Clinical Support [facility] [address] [place] [address] Juliana Pinedo RN documented as of this [...] documented as of this encounter Care Teams Vice President Investor Relations Relationship Specialty Start Date End Date Name, MD Osbaldo [address] [place] [address] PCP - General Family Medicine 09/02/19 documented as of this encounter
--- OUTSIDE RECORDS SUMMARY | 2024-11-05 15:20 | XMS_ITS | Encounter Summary ---
Author Organization [employer] Address [address] [place] [address] 7t [place] [address] Care Team Providers Care Ict Business Development Manager Name Role Phone Name, Osbaldo RASCON Primary Care Provider [phone] Lilian Baugh PharmD Unavailable [phone] Reason for Visit * Reason Onset Date Comments Med Refill 01/29/2024 Encounter Details Date Type Department Care Team ([facility] st Contact Info) Description 01/29/2024 Refill [facility] [address] [place], [place] [phone] Betsy Nino MD [address] [place], [place] [phone] Asthma, unspecified asthma severity, unspecified whether complicated, unspecified whether persistent Social History Tobacco Use Types Packs/Day Years [...] Description 12/29/2024 9:00 AM EDT Clinical Support [facility] [address] [place] [address] Juliana Pinedo, TOÑO documented as of this encounter Goals Goal Patient Goal Type Associated Problems Recent Progress Patient-Stated? Author Record your blood pressure once per day Blood Pressure No PuLilian ramirez, PharmD Blood Pressure < 140/90 Blood Pressure 134/84( 025 9:22 AM EST) No FinaiaLilian, PharmD documented as of this encounter Visit Diagnoses Diagnosis Asthma, unspecified asthma severity, unspecified whether complicated, unspecified whether persistent documented in this encounter Additional Health Concerns Assessment Noted Time PHQ-9 Depression Total Score: 8 01/21/20 23 3:35 PM EDT documented as of this encounter Care Teams Ict Business Development Manager Relationship Specialty Start Date End Date Name, MD Osbaldo [address] [place] [phone] PCP - General Family Medicine 09/02/19 Lilian Baugh PharmD [address] [place] [address] Pharmacist Internal Medicine 05/02/23 02/24/24 documented as of this encounter
--- OUTSIDE RECORDS SUMMARY | 2024-11-05 15:20 | XMS_ITS | Encounter Summary ---
Author Organization [employer] Address [address] [facility] 7t [place] [address] Care Team Providers Care Director Weights And Measures Name Role Phone Name, Osbaldo RASCON Primary Care Provider [phone] Lilian Baugh PharmD Unavailable [phone] Encounter Details Date Type Department Care Team (Late st Contact Info) Description 10/31/2023 Abstract [facility] [address] [place], [place] [phone] Name, MD Osbaldo [address] [place] [address] Social History Tobacco Use Types Packs/Day Years [...] Description 12/29/2024 9:00 AM EDT Clinical Support [facility] [address] [place] [address] Juliana Pinedo RN documented as of this [...] documented as of this encounter Care Teams Director Weights And Measures Relationship Specialty Start Date End Date Name, MD Osbaldo [address] [place] [address] PCP - General Family Medicine 09/02/19 Puia, Lilian, PharmD [address] [place] [address] Pharmacist Internal Medicine 05/02/23 02/24/24 documented as of this encounter
--- OUTSIDE RECORDS SUMMARY | 2024-11-05 15:20 | XMS_ITS | Clinical Summary ---
Author Organization [facility] Address [address] [place] [address] Care Team Providers Care Street Inspector Name Role Phone Ariana Haro MD Primary Care Provider Allergies No known active allergies Medications Medication Sig Dispensed Refills Start Date End Date Status gabapentin (NEURONTIN) 100 MG capsule Take 100 mg by mouth 3 (three) times a day. 0 Active naproxen (NAPROSYN) 500 MG tablet Take 1 tablet (500 mg total) by mouth 2 (two) times a day with meals. 14 tablet 0 11/11/2016 Active methocarbamol (ROBAXIN) 750 MG tablet Take 1 tablet (750 mg total) by mouth 4 (four) times a day as needed (muscle spasm). 30 tablet 0 11/11/2016 Active Social History Tobacco Use Types Packs/Day Years Used Date Smoking Tobacco: Never Alcohol Use Standard Drinks/Week Comments Yes 0 (1 standard drink = 0.6 oz pur e alcohol) Sex and Gender Information Value Date Recorded Sex Assigned at Not on file Gender Identity Not on file Sexual Orientation Not on file Last Filed Vital Signs Vital Sign Reading Time Taken Comments Blood Pressure 146/91 11/11/2016 10:59 PM EST Pulse 64 11/11/2016 10:59 PM EST Temperature 36.8 ??C (98.3 ??F) 11/11/2016 10:[address] Respiratory Rate 17 11/11/2016 10:59 PM EST Oxygen Saturation 98% 11/11/2016 10:59 PM EST Inhaled Oxygen Concentration - - Weight - - Height - - Body Mass Index - - Plan of Treatment Health Maintenance Due Date Last Done Comments Hepatitis B Vaccines (1 of 3 - 3-dose series) 1971 Hepatitis C Screening 1971 COVID-19 Vaccine (#1) 1971 Depression Screening 1983 Preventative Health Evaluation 1989 DTap / Tdap / Td (1 - Tdap) 1990 Colon Cancer Screening (Colonoscopy) 2016 Shingrix-Zoster Vaccine (1 of 2) 2021 Influenza Vaccine (#1) 2024 Pneumococcal Vaccine Aged Out No long er eligible based on patient's age to complete this topic RSV Ped < 20 months Aged Out No longe r eligible based on patient's age to complete this topic Care Teams Street Inspector Relationship Specialty Start Date End Date Ariana Haro MD PCP - General 08/15/17
--- OUTSIDE RECORDS SUMMARY | 2024-11-05 15:20 | XMS_ITS | Encounter Summary ---
Author Organization [employer] Address [address] [place] [address] 7t [place] [address] Care Team Providers Care Returning Officer Name Role Phone Name, Osbaldo RASCON Primary Care Provider Reason for Visit * Reason Comments Med Refill Encounter Details Date Type Department Care Team (Late st Contact Info) Description 10/04/2024 Refill [facility] [address] [place] [address] Name, MD Osbaldo [address] [place], [place] [phone] Chronic low back pain, unspecified back pain [...] Description 12/29/2024 9:00 AM EDT Clinical Support [facility] [address] [place] [phone] Juliana Pinedo RN documented as of this [...] documented as of this encounter Care Teams Returning Officer Relationship Specialty Start Date End Date Name, MD Osbaldo [address] [place] [address] PCP - General Family Medicine 09/02/19 documented as of this encounter
--- OUTSIDE RECORDS SUMMARY | 2024-11-05 15:20 | XMS_ITS | Encounter Summary ---
Author Organization [employer] Address [address] [place] [address] 7t [place] [address] Care Team Providers Care Body Shop Manager Name Role Phone Name, Osbaldo RASCON Primary Care Provider [phone] Reason for Visit * Reason Onset Date Comments Med Refill 07/22/2024 Encounter Details Date Type Department Care Team (Late st Contact Info) Description 07/22/2024 Refill [facility] [address] [place], [place] [phone] Georgina Hirsch, ANP [address] [place], [place] [phone] Gastroesophageal reflux disease, unspecified whether esophagitis present Social History Tobacco Use Types Packs/Day [...] Description 12/29/2024 9:00 AM EDT Clinical Support [facility] [address] [place] [address] Juliana Pinedo RN documented as of this encounter Goals Goal Patient Goal Type Associated Problems Recent Progress Patient-Stated? Author Record your blood pressure once per day Blood Pressure No Lilian Baugh, PharmD Blood Pressure < 140/90 Blood Pressure 134/84( 025 9:22 AM EST) No Lilian Baugh PharmD documented as of this encounter Visit Diagnoses Diagnosis Gastroesophageal reflux disease, unspecified whether esophagitis present documented in this encounter Additional Health Concerns Assessment Noted Time PHQ-9 Depression Total Score: 0 02/09/20 24 3:17 PM EDT documented as of this encounter Care Teams Body Shop Manager Relationship Specialty Start Date End Date Name, MD Osbaldo [address] [place] [address] PCP - General Family Medicine 09/02/19 documented as of this encounter
--- OUTSIDE RECORDS SUMMARY | 2024-11-05 15:20 | XMS_ITS | Encounter Summary ---
Author Organization [employer] Address [address] [place] [address] 7t [place] [address] Care Team Providers Care Clinical Applications Manager Name Role Phone NameOsbaldo MD Primary Care Provider Lilian Baugh PharmD Unavailable Reason for Visit * Reason Onset Date Comments Med Refill 01/23/2024 Encounter Details Date Type Department Care Team ([facility] st Contact Info) Description 01/23/2024 Refill [facility] [address] [place], [place] [phone] Name, MD Osbaldo [address] [place] [address] Social History Tobacco Use Types Packs/Day Years [...] Description 12/29/2024 9:00 AM EDT Clinical Support [facility] [address] [place] [address] Juliana Pinedo RN documented as of this [...] documented as of this encounter Care Teams Clinical Applications Manager Relationship Specialty Start Date End Date Name, MD Osbaldo [address] [place] [address] PCP - General Family Medicine 09/02/19 Puia, Lilian, PharmD [address] [place] [address] Pharmacist Internal Medicine 05/02/23 02/24/24 documented as of this encounter
--- OUTSIDE RECORDS SUMMARY | 2024-11-05 15:20 | XMS_ITS | Encounter Summary ---
Author Organization [employer] Address [address] [place] [address] 7t [place] [address] Care Team Providers Care Slide Machine Tender Name Role Phone Name, Osbaldo RASCON Primary Care Provider [phone] Reason for Visit * Reason Onset Date Comments Med Refill 03/29/2024 Encounter Details Date Type Department Care Team (Late st Contact Info) Description 03/29/2024 Refill [facility] [address] [place], [place] [phone] Georgina Hirsch, ANP [address] [place], [place] [phone] Gastroesophageal reflux disease, unspecified whether esophagitis present [...] Description 12/29/2024 9:00 AM EDT Clinical Support [facility] [address] [place] [address] Juliana Pinedo RN documented as of this [...] documented as of this encounter Care Teams Slide Machine Tender Relationship Specialty Start Date End Date Name, MD Osbaldo [address] [place] [address] PCP - General Family Medicine 09/02/19 documented as of this encounter
--- OUTSIDE RECORDS SUMMARY | 2024-11-05 15:20 | XMS_ITS | Clinical Summary ---
Author Organization [facility] ity Address [address] [place] [address] Care Team Providers Care Learning Specialist Name Role Phone Ariana Haro MD Primary Care Provider Social History Tobacco Use Types Packs/Day Years Used Date Smoking Tobacco: Never Assessed Sex and Gender Information Value Date Recorded Sex Assigned at Not on file Gender Identity Not on file Sexual Orientation Not on file Plan of Treatment Health Maintenance Due Date Last Done Comments Hepatitis B Vaccines (1 of 3 - 19+ 3-dose series) 1990 Zoster Vaccines (1 of 2) 2021 Cholesterol Screening (Lipid Panel) 09/01/2022 Colorectal Cancer Screening: Colonoscopy 09/01/2022 Depression Screening 09/01/2022 HIV Screening 09/01/2022 Hepatitis C Screening 09/01/2022 Social Influencers of Health Screening 09/01/2022 COVID-19 Vaccine ( - 2023-2 5 season) 2024 Influenza Vaccine (#1) 2024 09/13/2015 DTaP,Tdap,and Td Vaccines (2 - Td or Tdap) 09/13/2025 09/13/2015 HIB Vaccines Aged Out No longer eligi ble based on patient's age to complete this topic HPV Vaccines Aged Out No longer eligi ble based on patient's age to complete this topic Hepatitis A Vaccines Aged Out No long er eligible based on patient's age to complete this topic IPV Vaccines Aged Out No longer eligi ble based on patient's age to complete this topic MMR Vaccines Aged Out No longer eligi ble based on patient's age to complete this topic Meningococcal ACWY Vaccine Aged Out N o longer eligible based on patient's age to complete this topic Pneumococcal Vaccine: Pediat rics (0 to 5 Years) and At-Risk Patients (6 to 64 Years) Aged Out No longer eligi ble based on patient's age to complete this topic RSV Immunization Patients Un hu 20 months Aged Out No longer eligible b ased on patient's age to complete this topic Varicella Vaccines Aged Out No longer eligible based on patient's age to complete this topic Care Teams Learning Specialist Relationship Specialty Start Date End Date Ariana Haro MD [address] [place] [address] PCP - General 08/15/17
--- OUTSIDE RECORDS SUMMARY | 2024-11-05 15:20 | XMS_ITS | Encounter Summary ---
Author Organization [employer] [facility] Address [address] [place] [address] 7t [place] [address] Care Team Providers Care Air Brake Rigger Name Role Phone Name, Osbaldo RASCON Primary Care Provider [phone] Lilian Baugh PharmD Unavailable [phone] Encounter Details Date Type Department Care Team (Late st Contact Info) Description 09/06/2022 Orders Only [facility] [address] [place] [address] Marya Weston LPN Social History Tobacco Use Types Packs/Day Years [...] 9:00 AM EDT Clinical Support [facility] [address] [place] [address] Juliana Pinedo, TOÑO documented as of this encounter Visit Diagnoses Not on filedocumented in this encounter Care Teams Air Brake Rigger Relationship Specialty Start Date End Date Name, MD Osbaldo [address] [place] [address] PCP - General Family Medicine 09/02/19 Lilian Baugh, PharmD [address] [place] [address] Pharmacist Internal Medicine 05/02/23 02/24/24 documented as of this encounter
--- OUTSIDE RECORDS SUMMARY | 2024-11-05 15:20 | XMS_ITS | Encounter Summary ---
Author Organization [employer] Address [address] [place] [address] 7t [place] [address] Care Team Providers Care Aircraft Painter Name Role Phone Name, Osbaldo RASCON Primary Care Provider [phone] Lilian Baugh PharmD Unavailable [phone] Reason for Visit * Reason Onset Date Comments Med Refill 10/28/2023 Encounter Details Date Type Department Care Team ([facility] st Contact Info) Description 10/28/2023 Refill [facility] 230 [place], [place] [phone] Betsy Nino MD 230 [place], [place] [phone] Asthma, unspecified asthma severity, unspecified whether complicated, unspecified whether persistent; Essential (primary) hypertension Social History Tobacco Use Types Packs/Day Years [...] 9:00 AM EDT Clinical Support [facility] [address] [place] [address] Juliana Pinedo RN documented as of this [...] severity, unspecified whether complicated, unspecified whether persistent Essential (primary) hypertension Unspecified essential hypertension documented in this encounter Additional Health Concerns Assessment Noted Time PHQ-9 Depression Total Score: 8 01/21/20 23 3:35 PM EDT documented as of this encounter Care Teams Aircraft Painter Relationship Specialty Start Date End Date Name, MD Osbaldo [address] [place] [address] PCP - General Family Medicine 09/02/19 Lilian Baugh PharmD [address] [place] [address] Pharmacist Internal Medicine 05/02/23 02/24/24 documented as of this encounter
--- OUTSIDE RECORDS SUMMARY | 2024-11-05 15:20 | XMS_ITS | Encounter Summary ---
Author Organization [employer] Address [address] [place] [address] 7t [place] [address] Care Team Providers Care Sack Sewer Name Role Phone Name, Osbaldo RASCON Primary Care Provider [phone] Reason for Visit * Reason Comments Med Refill Encounter Details Date Type Department Care Team (Late st Contact Info) Description 10/24/2024 Refill [facility] 230 [place] [address] Name, MD Osbaldo [address] [place], [place] [phone] Social History Tobacco Use Types Packs/Day Years [...] Description 12/29/2024 9:00 AM EDT Clinical Support [facility] [address] [place] [address] Juliana Pinedo RN documented as of this [...] documented as of this encounter Care Teams Sack Sewer Relationship Specialty Start Date End Date Name, MD Osbaldo [address] [place] [address] PCP - General Family Medicine 09/02/19 documented as of this encounter
--- OUTSIDE RECORDS SUMMARY | 2024-11-05 15:20 | XMS_ITS | Encounter Summary ---
Author Organization [employer] Address [address] [place] [address] 7t [place] [address] Care Team Providers Care Fire Battalion Chief Name Role Phone Name, Osbaldo RASCON Primary Care Provider [phone] Lilian Baugh PharmD Unavailable [phone] Reason for Visit * Reason Onset Date Comments Nurse Triage 09/08/2023 Encounter Details Date Type Department Care Team ([facility] st Contact Info) Description 09/08/2023 Telephone [facility] 230 [place], [place] [phone] Name, MD Osbaldo [address] [place] [address] Nurse Triage Social History Tobacco Use Types Packs/Day Years [...] encounter Miscellaneous Notes * Telephone Encounter - Sarah Billings RN - 09/08/2023 10:02 AM EST Called pt. He states that he has a cough in the nighttime. Pt. Does have Asthma and he states He doesn't want to complicate his Asthma sx. Cough is productive- yellow. Covid test at home x 2-Negative. Pt. States that PCP usually gives pt. A cough pill to control cough at night. Pt. States that He is requesting a refill on Benzonatate 100mg pills to help cough at night. I see medication was prescri bed in past in [facility] for 30 pills Take 1 pill three times a day as needed for cough. Pt. Requesting refill. * Telephone Encounter - Marija Cheek - 09/08/2023 9:44 AM EST Symptom: Cough Outcome: Schedule an appointment to be seen within 24 hours Reason: Caller denied all higher acuity questions The caller accepted this outcome Please contact pt at [phone] (No card grinder helper needed) documented in this encounter Plan of Treatment Upcoming Encounters Date Type Department Care Team (Late st Contact Info) Description 12/29/2024 9:00 AM EDT Clinical Support [address] [address] Juliana Pinedo, RN documented as of this encounter Goals [...] documented as of this encounter Care Teams Fire Battalion Chief Relationship Specialty Start Date End Date Name, MD Osbaldo 230 [place] [address] PCP - General Family Medicine 09/02/19 Lilian Baugh PharmD 230 [place] [address] Pharmacist Internal Medicine 05/02/23 02/24/24 documented as of this encounter
--- OUTSIDE RECORDS SUMMARY | 2024-11-05 15:20 | XMS_ITS | Encounter Summary ---
Author Organization [employer] Address [address] [place] [address] 7t [place] [address] Care Team Providers Care Jet Blade Polisher Name Role Phone Name, Osbaldo RASCON Primary Care Provider [phone] Lilian Baugh PharmD Unavailable [phone] Reason for Visit * Reason Onset Date Comments Med Refill 01/29/2024 Encounter Details Date Type Department Care Team ([facility] st Contact Info) Description 01/29/2024 Refill [facility] PEDS [address] [place], [place] [phone] Abril Brooks FNP 505 [place] [address] Social History Tobacco Use Types Packs/Day Years [...] Description 12/29/2024 9:00 AM EDT Clinical Support [facility] 230 [place] [address] Juliana Pinedo RN documented as of this [...] documented as of this encounter Care Teams Jet Blade Polisher Relationship Specialty Start Date End Date Name, MD Osbaldo [address] [place] [address] PCP - General Family Medicine 09/02/19 Puia, Lilian, PharmD [address] [place] [address] Pharmacist Internal Medicine 05/02/23 02/24/24 documented as of this encounter
--- OUTSIDE RECORDS SUMMARY | 2024-11-05 15:20 | XMS_ITS | Encounter Summary ---
Author Organization [employer] Address [address] [place] [address] 7t [place] [address] Care Team Providers Care Main Line Assembler Name Role Phone Name, Osbaldo RASCON Primary Care Provider [phone] Lilian Baugh PharmD Unavailable [phone] Reason for Visit * Reason Onset Date Comments Med Refill 07/23/2023 Encounter Details Date Type Department Care Team ([facility] st Contact Info) Description 07/23/2023 Refill [facility] 230 [place], [place] [phone] Lb Noriega MD 230 [place] [address] Social History Tobacco Use Types Packs/Day Years [...] Support [facility] MEDICINE [address] [place] [address] Juliana Pinedo RN documented as of this [...] documented as of this encounter Care Teams Main Line Assembler Relationship Specialty Start Date End Date Name, MD Osbaldo [address] [place] [address] PCP - General Family Medicine 09/02/19 Puia, Lilian, PharmD [address] [place] [address] Pharmacist Internal Medicine 05/02/23 02/24/24 documented as of this encounter
--- OUTSIDE RECORDS SUMMARY | 2024-11-05 15:20 | XMS_ITS | Encounter Summary ---
Author Organization [employer] Address [address] [place] [address] 7t [place] [address] Care Team Providers Care Cold Header Operator Name Role Phone Name, Osbaldo RASCON Primary Care Provider [phone] Reason for Visit * Reason Onset Date Comments Med Refill 09/01/2024 Encounter Details Date Type Department Care Team (Late st Contact Info) Description 09/01/2024 Refill [facility] [address] [place], [place] [phone] Name, MD Osbaldo 230 [place] [address] Chronic low back pain, unspecified back pain [...] Description 12/29/2024 9:00 AM EDT Clinical Support [facility] [address] [place] [address] Juliana Pinedo, TOÑO documented as of this encounter Goals Goal Patient Goal Type Associated Problems Recent Progress Patient-Stated? Author Record your blood pressure once per day Blood Pressure No Puia, Lilian, PharmD Blood Pressure < 140/90 Blood Pressure 134/84( 025 9:22 AM EST) No PuiaMichaelLilian, PharmD documented as of this encounter Visit Diagnoses Diagnosis Chronic low back pain, unspecified back pain laterality, unspecified whether sciatica present documented in this encounter Additional Health Concerns Assessment Noted Time PHQ-9 Depression Total Score: 0 02/09/20 24 3:17 PM EDT documented as of this encounter Care Teams Cold Header Operator Relationship Specialty Start Date End Date Name, MD Osbaldo [address] [place] [address] PCP - General Family Medicine 09/02/19 documented as of this encounter
--- OUTSIDE RECORDS SUMMARY | 2024-11-05 15:20 | XMS_ITS | Encounter Summary ---
Author Organization [employer] Address [address] [place] [address] 7t [place] [address] Care Team Providers Care Bargeman Name Role Phone Name, Osbaldo RASCON Primary Care Provider [phone] Reason for Visit * Reason Comments Med Refill Encounter Details Date Type Department Care Team (Late st Contact Info) Description 11/05/2024 Refill [facility] [address] [place] [address] Name, MD Osbaldo 230 [place], [place] [phone] Social History Tobacco Use Types Packs/Day Years [...] EDT Clinical Support [facility] [address] [place] [address] Juliana Pinedo RN documented as of this [...] documented as of this encounter Care Teams Bargeman Relationship Specialty Start Date End Date Name, MD Osbaldo [address] [place] [address] PCP - General Family Medicine 09/02/19 documented as of this encounter
--- OUTSIDE RECORDS SUMMARY | 2024-11-05 15:20 | XMS_ITS | Encounter Summary ---
Author Organization [employer] Address [address] [place] [address] 7t [place] [address] Care Team Providers Care Blanket Winder Operator Name Role Phone Name, Osbaldo RASCON Primary Care Provider [phone] Reason for Visit * Reason Onset Date Comments Med Refill 07/22/2024 Encounter Details Date Type Department Care Team ([facility] st Contact Info) Description 07/22/2024 Refill [facility] 230 [place], [place] [phone] Betsy Nino MD 230 [place], [place] [phone] Allergic rhinitis, unspecified seasonality, unspecified trigger Social [...] Description 12/29/2024 9:00 AM EDT Clinical Support [facility]INE [address] [place] [address] Juliana Pinedo RN documented as of this [...] documented as of this encounter Care Teams Blanket Winder Operator Relationship Specialty Start Date End Date Name, MD Osbaldo [address] [place] [address] PCP - General Family Medicine 09/02/19 documented as of this encounter
--- OUTSIDE RECORDS SUMMARY | 2024-11-05 15:20 | XMS_ITS | Encounter Summary ---
Author Organization [employer] Address [address] [place] [address] 7t [place] [address] Care Team Providers Care Ux Architect Name Role Phone Name, Osbaldo RASCON Primary Care Provider [phone] Reason for Visit * Reason Onset Date Comments Med Refill 09/30/2024 Encounter Details Date Type Department Care Team ([facility] st Contact Info) Description 09/30/2024 Refill [facility] 230 [place] [address] Name, MD Osbaldo 230 [place] [address] Allergic rhinitis, unspecified seasonality, unspecified trigger; Chronic low back pain, unspecified back pain [...] Description 12/29/2024 9:00 AM EDT Clinical Support [facility] [address] [place] [address] Juliana Pinedo RN documented as of this encounter Goals Goal Patient Goal Type Associated Problems Recent Progress Patient-Stated? Author Record your blood pressure once per day Blood Pressure No Puia, Lilian, PharmD Blood Pressure < 140/90 Blood Pressure 134/84( 025 9:22 AM EST) No Puia, Lilian, PharmD documented as of this encounter Visit Diagnoses Diagnosis Allergic rhinitis, unspecified seasonality, unspecified trigger Chronic low back pain, unspecified back pain laterality, unspecified whether sciatica present documented in this encounter Additional Health Concerns Assessment Noted Time PHQ-9 Depression Total Score: 0 02/09/20 24 3:17 PM EDT documented as of this encounter Care Teams Ux Architect Relationship Specialty Start Date End Date Name, MD Osbaldo 230 [place] [address] PCP - General Family Medicine 09/02/19 documented as of this encounter
--- OUTSIDE RECORDS SUMMARY | 2024-11-05 15:20 | XMS_ITS | Encounter Summary ---
Author Organization [employer] Address [address] [place] [address] 7t [place] [address] Care Team Providers Care Box Car Bracer Name Role Phone Name, Osbaldo RASCON Primary Care Provider Reason for Visit * Reason Onset Date Comments Med Refill 03/29/2024 Encounter Details Date Type Department Care Team ([facility] st Contact Info) Description 03/29/2024 Refill [facility] 230 [place], [place] [phone] Name, MD Osbaldo 230 [place] [address] Social History Tobacco Use Types Packs/Day Years [...] Description 12/29/2024 9:00 AM EDT Clinical Support [facility] MEDICINE [address] [place] [address] Juliana Pinedo, RN documented as of this encounter Goals Goal Patient Goal Type Associated Problems Recent Progress Patient-Stated? Author Record your blood pressure once per day Blood Pressure No PuiaLilian, PharmD Blood Pressure < 140/90 Blood Pressure 134/84( 025 9:22 AM EST) No FinaiaMichaelLilian, PharmD documented as of this encounter Visit Diagnoses Not on filedocumented in this encounter Additional Health Concerns Assessment Noted Time PHQ-9 Depression Total Score: 0 02/09/20 24 3:17 PM EDT documented as of this encounter Care Teams Box Car Bracer Relationship Specialty Start Date End Date Name, MD Osbaldo [address] [place] [address] PCP - General Family Medicine 09/02/19 documented as of this encounter
--- OUTSIDE RECORDS SUMMARY | 2024-11-05 15:20 | XMS_ITS | Encounter Summary ---
Author Organization [employer] Address [address] [place] [address] 7t [place] [address] Care Team Providers Care Ux Information Architect Name Role Phone Name, Osbaldo RASCON Primary Care Provider [phone] Reason for Visit * Reason Onset Date Comments Med Refill 10/07/2024 Encounter Details Date Type Department Care Team (Late st Contact Info) Description 10/07/2024 Refill [facility] MED[facility]INE 230 [place] [address] Name, MD Osbaldo 230 [place] [address] Chronic low back pain, unspecified back pain [...] Description 12/29/2024 9:00 AM EDT Clinical Support [facility] [address] [place] [address] Juliana Pinedo RN documented as of this encounter Goals Goal Patient Goal Type Associated Problems Recent Progress Patient-Stated? Author Record your blood pressure once per day Blood Pressure No Lilian Baugh, PharmD Blood Pressure < 140/90 Blood Pressure 134/84( 025 9:22 AM EST) No Lilian Baugh PharmRoxie documented as of this encounter Visit Diagnoses Diagnosis Chronic low back pain, unspecified back pain laterality, unspecified whether sciatica present documented in this encounter Additional Health Concerns Assessment Noted Time PHQ-9 Depression Total Score: 0 02/09/20 24 3:17 PM EDT documented as of this encounter Care Teams Ux Information Architect Relationship Specialty Start Date End Date Name, MD Osbaldo [address] [place] [address] PCP - General Family Medicine 09/02/19 documented as of this encounter
--- OUTSIDE RECORDS SUMMARY | 2024-11-05 15:20 | XMS_ITS | Encounter Summary ---
Author Organization [employer] Address [address] [place] [address] 7t [place] [address] Care Team Providers Care Metal Filer Name Role Phone Name, Osbaldo RASCON Primary Care Provider [phone] Lilian Baugh PharmD Unavailable [phone] Encounter Details Date Type Department Care Team (Late st Contact Info) Description 10/02/2022 Orders Only [facility] [address] [place] [address] Shruti Harrington LPN Social History Tobacco Use Types Packs/Day [...] 9:00 AM EDT Clinical Support [facility] [address] [place] [address] Juliana Pinedo, RN documented as of this encounter Visit Diagnoses Not on filedocumented in this encounter Care Teams Metal Filer Relationship Specialty Start Date End Date Name, MD Osbaldo [address] [place] [address] PCP - General Family Medicine 09/02/19 Lilian Baugh, PharmD 230 [place] [address] Pharmacist Internal Medicine 05/02/23 02/24/24 documented as of this encounter
--- OUTSIDE RECORDS SUMMARY | 2024-11-05 15:20 | XMS_ITS | Encounter Summary ---
Author Organization [employer] Address [address] [place] [address] 7t [place] [address] Care Team Providers Care Trade Embalmer Name Role Phone Name, Osbaldo RASCON Primary Care Provider [phone] Lilian Baugh PharmD Unavailable [phone] Reason for Visit * Reason Comments Med Refill Encounter Details Date Type Department Care Team ([facility] st Contact Info) Description 10/16/2023 Refill [facility] 230 [place], [place] [phone] Lb Noriega MD 230 [place], [place] [phone] Social History Tobacco Use Types Packs/Day Years [...] Description 12/29/2024 9:00 AM EDT Clinical Support [facility] 230 [place] [address] Juliana Pinedo RN documented as of this [...] documented as of this encounter Care Teams Trade Embalmer Relationship Specialty Start Date End Date Name, MD Osbaldo [address] [place] [address] PCP - General Family Medicine 09/02/19 Puia, Lilian, PharmD [address] [place] [address] Pharmacist Internal Medicine 05/02/23 02/24/24 documented as of this encounter
--- OUTSIDE RECORDS SUMMARY | 2024-11-05 15:20 | XMS_ITS | Encounter Summary ---
Author Organization [employer] Address [address] [place] [address] 7t [place] [address] Care Team Providers Care Mold Filler Plastic Dolls Name Role Phone Name, Osbaldo RASCON Primary Care Provider [phone] Reason for Visit * Reason Onset Date Comments Med Refill 03/29/2024 Encounter Details Date Type Department Care Team (Late st Contact Info) Description 03/29/2024 Refill [facility] MED[facility]INE 230 [place] [address] Name, MD Osbaldo [address] [place] [address] Chronic low back pain, unspecified back pain [...] encounter Miscellaneous Notes * Telephone Encounter - Yvan Desai RN - 03/29/2024 4:44 PM EDT Meds. Already pended. documented in this encounter Plan of Treatment Upcoming Encounters Date Type Department Care Team (Late st Contact Info) Description 12/29/2024 9:00 AM EDT Clinical Support [facility] MEDICINE [address] [place] [address] Juliana Pinedo RN documented as of this [...] documented as of this encounter Care Teams Mold Filler Plastic Dolls Relationship Specialty Start Date End Date Name, MD Osbaldo 230 [place] [address] PCP - General Family Medicine 09/02/19 documented as of this encounter
--- OUTSIDE RECORDS SUMMARY | 2024-11-05 15:20 | XMS_ITS | Encounter Summary ---
Author Organization [employer] Address [address] [place] [address] 7t [place] [address] Care Team Providers Care [employer] Dean Name Role Phone Name, Osbaldo RASCON Primary Care Provider [phone] Lilian Baugh PharmD Unavailable [phone] Reason for Visit * Reason Onset Date Comments notes 02/11/2024 Encounter Details Date Type Department Care Team ([facility] st Contact Info) Description 02/11/2024 Telephone [facility] MED[facility]INE [address] [place], [place] [phone] Name, MD Osbaldo [address] [place] [address] notes Social History Tobacco Use Types Packs/Day Years [...] encounter Miscellaneous Notes * Telephone Encounter - Nicolle Kaplan - 02/12/2024 8:40 AM EDT Left Jacqui a v/m there's no notes from [facility]. * Telephone Encounter - Yvan Desai RN - 02/11/2024 4:55 PM EDT Please review and advise for below request. * Telephone Encounter - Marija Cheek - 02/11/2024 2:26 PM EDT Tc from Jacqui with [facility] pain management requesting supporting documents for referral. Requesting MRI results, [facility] pain management notes, and Neurosurgeon [facility] notes. Please fax to [phone] Any questions, contact Jacqui at [phone] documented in this encounter Plan of Treatment Upcoming Encounters Date Type Department Care Team (Late st Contact Info) Description 12/29/2024 9:00 AM EDT Clinical Support [address] [address] Juliana Pinedo, RN documented as of this [...] documented as of this encounter Care Teams [employer] Dean Relationship Specialty Start Date End Date Name, MD Osbaldo [address] [place] [address] PCP - General Family Medicine 09/02/19 Lilian Baugh PharmD [address] [place] [address] Pharmacist Internal Medicine 05/02/23 02/24/24 documented as of this encounter
--- OUTSIDE RECORDS SUMMARY | 2024-11-05 15:20 | XMS_ITS | Encounter Summary ---
Author Organization [employer] Address [address] [place] [address] 7t [place] [address] Care Team Providers Care Frame Bander Name Role Phone Name, Osbaldo RASCON Primary Care Provider [phone] Reason for Visit * Reason Onset Date Comments Med Refill 10/07/2024 Encounter Details Date Type Department Care Team (Late st Contact Info) Description 10/07/2024 Refill [facility] MEDICINE [address] [place] [address] Name, MD Osbaldo [address] [place] [address] Chronic low back pain, unspecified back pain [...] encounter Miscellaneous Notes * Telephone Encounter - Favian Pinedo RN - 10/07/2024 3:26 PM EST TC to patient, patient made aware his percocet refill will be resent with pickup available 10/08/24 @ [facility] pharmacy. * Addendum Note - Favian Pinedo RN - 10/07/2024 3:24 PM ESTAddended by: FAVIAN PINEDO on: 10/07/2024 03:24 PM Modules accepted: Orders * Telephone Encounter - Favian Pinedo RN - 10/07/2024 3:19 PM EST TC to [facility] Pharmacy, spoke with pharmacist Michelle, patient DID pickup his Percocet RX on 10/01/24 not on 10/04/24 as [facility] listed. Confirmed refill due 10/08/24. Michelle cancelled Percocet RX for start dateof 10/11/24. Will send new request to covering provider. * Telephone Encounter - Cuba Helms - 10/07/2024 3:09 PM EST Tc from pt reports contact pharmacy unable to picking supervisor oxy until 10/11 . Pt would like to talk aboutthis further * Telephone Encounter - Favian Pinedo RN - 10/07/2024 11:42 AM EST Refill request has been sent to covering provider. Covering provider will address the refill request as soon as possible. * Telephone Encounter - Hardeep Santamaria - 10/07/2024 11:35 AM EST TC from pt requesting medication refill. Medications needing refill : oxyCODONE-acetaminophen (Percocet) 10-325 MG tablet To be sent to: [facility] documented in this encounter Plan of Treatment Upcoming Encounters Date Type Department Care Team (Late st Contact Info) Description 12/29/2024 9:00 AM EDT Clinical Support [facility] MEDICINE [address] [place] [address] Favian Pinedo RN documented as of this [...] documented as of this encounter Care Teams Frame Bander Relationship Specialty Start Date End Date Name, MD Osbaldo [address] [place] [address] PCP - General Family Medicine 09/02/19 documented as of this encounter
--- OUTSIDE RECORDS SUMMARY | 2024-11-05 15:20 | XMS_ITS | Encounter Summary ---
Author Organization [employer] Address [address] [place] [address] 7t [place] [address] Care Team Providers Care Degreaser Operator Name Role Phone NameOsbaldo MD Primary Care Provider Lilian Baugh PharmD Unavailable [phone] Reason for Visit * Reason Onset Date Comments Med Refill 01/29/2024 Encounter Details Date Type Department Care Team ([facility] st Contact Info) Description 01/29/2024 Refill [facility] MEDICINE [address] [place], [place] [phone] Name, MD Osbaldo [address] [place] [address] Social History Tobacco Use Types Packs/Day Years [...] Description 12/29/2024 9:00 AM EDT Clinical Support [facility] MEDICINE [address] [place] [address] Juliana Pinedo RN documented as of this [...] documented as of this encounter Care Teams Degreaser Operator Relationship Specialty Start Date End Date Name, MD Osbaldo [address] [place] [phone] PCP - General Family Medicine 09/02/19 Puia, Lilian, PharmD [address] [place] [address] Pharmacist Internal Medicine 05/02/23 02/24/24 documented as of this encounter
--- OUTSIDE RECORDS SUMMARY | 2024-11-05 15:20 | XMS_ITS | Encounter Summary ---
Author Organization [email or web address] Address [address] [place] [address] 7t [place] [address] Care Team Providers Care Pipe Assembly Worker Name Role Phone Name, Osbaldo RASCON Primary Care Provider Lilian Baugh PharmD Unavailable Reason for Visit * Reason Onset Date Comments Med Refill 10/28/2023 Encounter Details Date Type Department Care Team (Late st Contact Info) Description 10/28/2023 Refill [facility] MEDICINE [address] [place], [place] [phone] Darcie Cunha MD [address] [place], [place] [phone] Chronic low back pain, unspecified back pain [...] AM EDT Clinical Support [facility] [address] [place] [phone] Juliana Pinedo RN documented as of this [...] documented as of this encounter Care Teams Pipe Assembly Worker Relationship Specialty Start Date End Date Name, MD Osbaldo [address] [place] [phone] PCP - General Family Medicine 09/02/19 Lilian Baugh PharmD [address] [place] [address] Pharmacist Internal Medicine 05/02/23 02/24/24 documented as of this encounter
--- OUTSIDE RECORDS SUMMARY | 2024-11-05 15:20 | XMS_ITS | Clinical Summary ---
Author Organization [employer] Address [address] [place] [address] 7t [place] [address] Care Team Providers Care Craps Manager Name Role Phone Name, Osbaldo RASCON Primary Care Provider [phone] Allergies No known active allergies Medications Proventil HFA 108 (90 Base) MCG/ACT inhalerIndicati ons:Asthma, unspecified asthma severity, unspecified whether complicated, unspecified whether persistent INHALE 2 PUFFS BY MOUTH EVERY 4 TO 6 HOURS NEEDED 6.7 g 4 12/12/19 23 Active Blood Pressure Monitoring (Omron 3 Series BP Monitor) device USE TO CHECK BLOOD PRESSURE TWICE DAILY DIRECTED 08/12/20 22 Active traZODone (Desyrel) 50 MG tablet Take 1 tablet by mouth if needed at bedtime. Active gabapentin (Neurontin) 300 MG capsuleIndicati ons:Chronic low back pain, unspecified back pain laterality, unspecified whether sciatica present Take 2 capsules (600 mg) by mouth 3 times daily. 180 capsule 09/25/20 23 Active atorvastatin (Lipitor) 20 MG tablet TAKE 1 TABLET BY MOUTH EVERY DAY 90 tablet 2 01/22/20 24 Active naloxone (Narcan) 4 mg/0.1 mL nasal sprayIndication s:Chronic low back pain, unspecified back pain laterality, unspecified whether sciatica present ADMINISTER 1 SPRAY INTO AFFECTED NOSTRIL(S) IF NEEDED FOR OPIOID REVERSAL. MAY REPEAT EVERY 2 TO 3 MINUTES IF NEEDED ALTERNATING NOSTRILS, UNTIL MEDICAL ASSISTANCE BECOMES AVAILABLE. 2 each 3 01/29/20 24 Active fluticasone (Flonase) 50 MCG/ACT nasal sprayIndication s:Allergic rhinitis, unspecified seasonality, unspecified trigger INSTILL 2 SPRAYS IN EACH NOSTRIL ONCE DAILY 48 g 1 03/03/20 24 Active omeprazole (PriLOSEC) [address] capsuleIndicati ons:Gastroesoph ageal reflux disease, unspecified whether esophagitis present Take 1 capsule once daily 30-60min before a meal. Do not crush or chew. 90 capsule 1 03/12/20 24 Active amLODIPine-vals cari (Exforge) 5-160 MG tablet Take 1 tablet by mouth Once per day. 30 tablet 11 04/13/20 24 2024 Active montelukast (Singulair) 10 MG tabletIndicatio ns:Moderate asthma with status asthmaticus, unspecified whether persistent TAKE 1 TABLET BY MOUTH EVERY DAY 90 tablet 3 04/30/20 24 Active gabapentin (Neurontin) 300 MG capsule TAKE 2 CAPSULES BY MOUTH THREE TIMES DAILY 180 capsule 04/30/20 24 Active fluticasone (Cutivate) 0.05 % cream APPLY TOPICALLY TWICE A DAY 60 g 2 05/20/20 24 Active cetirizine (ZyrTEC) 10 MG tabletIndicatio ns:Allergic rhinitis, unspecified seasonality, unspecified trigger TAKE 1 TABLET BY MOUTH EVERY DAY 90 tablet 1 08/30/20 24 Active cholecalciferol (D3 Super Strength) 50 MCG (2000 UT) capsule TAKE 1 CAPSULE BY MOUTH EVERY DAY IN THE MORNING 90 capsule 09/02/20 24 Active albuterol (2.5 MG/3ML) 0.083% nebulizer solutionIndicat ions:Moderate persistent asthma, unspecified whether complicated INHALE 1 AMPULE USING A NEBULIZER THREE TIMES DAILY 270 mL 10/19/19 25 Active albuterol (Ventolin HFA) 108 (90 Base) MCG/ACT inhaler INHALE 2 PUFFS BY MOUTH EVERY 4 TO 6 HOURS NEEDED 18 g 2 10/19/19 25 Active fluticasone-bull meterol (Advair HFA) 115-21 MCG/ACT inhalerIndicati ons:Moderate persistent asthma, unspecified whether complicated INHALE 2 PUFFS BY MOUTH TWICE DAILY RINSE MOUTH AFTER USING. 12 g 2 10/19/19 25 Active tamsulosin (Flomax) 0.4 MG 24 hr capsule TAKE 2 CAPSULES BY MOUTH EVERY DAY 180 capsule 1 10/25/19 25 Active oxyCODONE-aceta minophen (Percocet) 10-325 MG tabletIndicatio ns:Chronic low back pain, unspecified back pain laterality, unspecified whether sciatica present Take 1 tablet by mouth every 8 (eight) hours if needed for severe pain for up to 28 days. Do not start before November 05, 2024. 84 tablet 11/05/19 25 2024 Active Cialis 20 MG tablet TAKE 1 TABLET 1 HOUR BEFORE SEXUAL RELATIONS ONCE DAILY NEEDED. 10 tablet 11/05/19 25 Active albuterol (2.5 MG/3ML) 0.083% nebulizer solutionIndicat ions:Asthma, unspecified asthma severity, unspecified whether complicated, unspecified whether persistent INHALE 1 AMPULE USING A NEBULIZER THREE TIMES DAILY 270 mL 10/17/19 24 2024 Discontinued(R eorder (will not trigger notification to Pharmacy)) albuterol (Ventolin HFA) 108 (90 Base) MCG/ACT inhaler INHALE 2 PUFFS BY MOUTH EVERY 4 TO 6 HOURS NEEDED 18 g 2 10/28/19 24 2024 Discontinued(R eorder (will not trigger notification to Pharmacy)) fluticasone-bull meterol (Advair HFA) 115-21 MCG/ACT inhalerIndicati ons:Asthma, unspecified asthma severity, unspecified whether complicated, unspecified whether persistent INHALE 2 PUFFS BY MOUTH TWICE DAILY RINSE MOUTH AFTER USING. 12 g 2 05/25/20 24 2024 Discontinued(R eorder (will not trigger notification to Pharmacy)) tamsulosin (Flomax) 0.4 MG 24 hr capsule Take 2 capsules (0.8 mg) by mouth Once per day. 90 capsule 3 06/18/20 24 2024 Discontinued sildenafil (Viagra) 100 MG tabletIndicatio ns:Essential (primary) hypertension TAKE 1 TABLET 1 HOUR BEFORE SEXUAL RELATIONS ONCE DAILY NEEDED. 10 tablet 2 09/17/20 24 2024 Discontinued oxyCODONE-aceta minophen (Percocet) 10-325 MG tabletIndicatio ns:Chronic low back pain, unspecified back pain laterality, unspecified whether sciatica present Take 1 tablet by mouth every 8 (eight) hours if needed for severe pain for up to 28 days. Do not start before October 11, 2024. 84 tablet 10/11/19 25 2024 Discontinued(R eorder (will not trigger notification to Pharmacy)) oxyCODONE-aceta minophen (Percocet) 10-325 MG tabletIndicatio ns:Chronic low back pain, unspecified back pain laterality, unspecified whether sciatica present Take 1 tablet by mouth every 8 (eight) hours if needed for severe pain for up to 28 days. Do not start before October 08, 2024. 84 tablet 10/08/19 25 2024 Discontinued(R eorder (will not trigger notification to Pharmacy)) tadalafil (Cialis) 20 MG tablet Take 1 tablet (20 mg) by mouth if needed each day for erectile dysfunction. 10 tablet 10/19/19 25 2024 Discontinued Active Problems Problem Noted Date Diagnosed Date High cholesterol 07/22/2023 BPH associated with nocturia 03/26/2023 Seasonal allergic reaction 01/20/2023 Moderate asthma 01/20/2023 Chronic low back pain 07/17/2018 Anxiety 07/17/2018 Essential hypertension 02/21/2017 Encounters Date Type Department Care Team Description 11/05/2024 Refill [facility] [address] [place] [address] Osbaldo Gentile MD 11/01/2024 Refill [facility] [address] [place], [place] [phone] Osbaldo Gentile MD Chronic low back pain, unspecified back pain laterality, unspecified whether sciatica present 10/24/2024 Refill [facility] [address] [place] [address] Osbaldo Gentile MD 10/19/2024 9:15 AM EST Office Visit [facility] [address] [place], [place] [phone] Osbaldo Gentile MD Essential hypertension (Primary Dx); Moderate persistent asthma, unspecified whether complicated; Chronic low back pain with sciatica, sciatica laterality unspecified, unspecified back pain laterality; Other male erectile dysfunction; BPH associated with nocturia; Healthcare maintenance 10/11/2024 Telephone [facility] [address] [place], [place] [phone] Sharmaine Lim MA Chart prep 10/07/2024 Refill [facility] [address] [place] [address] Osbaldo Gentile MD Chronic low back pain, unspecified back pain laterality, unspecified whether sciatica present 10/07/2024 Refill [facility] [address] [place] [address] Osbaldo Gentile MD Chronic low back pain, unspecified back pain laterality, unspecified whether sciatica present 10/06/2024 Refill [facility] [address] [place] [phone] Osbaldo Gentile MD Chronic low back pain, unspecified back pain laterality, unspecified whether sciatica present 10/06/2024 Refill [facility] [address] [place] [phone] Osbaldo Gentile MD Chronic low back pain, unspecified back pain laterality, unspecified whether sciatica present 10/04/2024 Refill [facility] [address] [place] [phone] Osbaldo Gentile MD Chronic low back pain, unspecified back pain laterality, unspecified whether sciatica present 10/01/2024 Refill [facility] [address] [place] [phone] Osbaldo Gentile MD Chronic low back pain, unspecified back pain laterality, unspecified whether sciatica present 09/30/2024 Refill [facility] [address] [place] [address] Osbaldo Gentile MD Chronic low back pain, unspecified back pain laterality, unspecified whether sciatica present 09/30/2024 Refill [facility] [address] [place] [phone] Osbaldo Gentile MD Allergic rhinitis, unspecified seasonality, unspecified trigger; Chronic low back pain, unspecified back pain laterality, unspecified whether sciatica present 09/28/2024 Telephone [facility] [address] [place] [phone] Osbaldo Gentile MD Med Refill 09/28/2024 Telephone [facility] [address] [place] [phone] Osbaldo Gentile MD 09/17/2024 Refill [facility] [address] [place] [phone] Osbaldo Gentile MD Essential (primary) hypertension 09/02/2024 Refill [facility] [address] [place] [address] Jory Wild MD 09/01/2024 9:00 AM EST Clinical Support [facility] [address] [place] [address] Juliana Pinedo RN Chronic low back pain, unspecified back pain laterality, unspecified whether sciatica present (Primary Dx) 09/01/2024 Refill [facility] [address] [place] [address] Osbaldo Gentile MD Chronic low back pain, unspecified back pain laterality, unspecified whether sciatica present 09/01/2024 Travel 09/01/2024 Telephone [facility] [address] [place] [address] Juliana Pinedo RN TELESALES AGENT Tier 3 recomendation 08/29/2024 Refill [facility] [address] [place] [phone] Osbaldo Gentile MD Moderate asthma with status asthmaticus, unspecified whether persistent; Essential (primary) hypertension; Chronic low back pain, unspecified back pain laterality, unspecified whether sciatica present 08/29/2024 Refill [facility] [address] [place] [phone] Besty Nino MD Allergic rhinitis, unspecified seasonality, unspecified trigger 08/05/2024 Telephone [facility] [address] [place] [phone] Osbaldo Gentile MD Medication Question from Last 3 Months Immunizations Name Administration Dates Next Due Influenza injectable quadriv alent IIV4 with preservative 08/20/2019,07/17/2018 Influenza injectable quadriv alent preservative free 07/22/2023,08/12/2022,08/06/2021 Influenza, IIV3, injectable 09/13/2015 Influenza, seasonal, injecta ble, preservative free 06/18/2024 Pneumococcal Conjugate PCV 20 07/22/2023 Pneumococcal Polysaccharide PPSV23 05/22/2021 Tdap 07/17/2018,09/13/2015 Zoster, Recombinant 07/24/2021,05/22/2021 Social History Tobacco Use Types Packs/Day Years Used Date Smoking Tobacco: Never Tobacco Cessation:Counseling Given: Not Answered Alcohol Use Standard Drinks/Week Comments Yes 0 [...] Orientation Straight 07/29/2022 10 :31 AM EDT Last Filed Vital Signs Vital Sign Reading [...] Mass Index 29.82 10/19/2024 9:22 AM EST Plan of Treatment Upcoming Encounters Date Type Department Care Team (Late st Contact Info) Description 12/29/2024 9:00 AM EDT Clinical Support [place] [phone] Juliana Pinedo, RN Health Maintenance Due Date Last Done Comments CT Colonography 1971 Colonoscopy 1971 Colorectal Cancer Screening 1971 FIT DNA/Cologuard 1971 FIT 1971 FOBT 1971 Sigmoidoscopy 1971 Hepatitis B Vaccines (1 of 3 - 19+ 3-dose series) 1990 COVID-19 Vaccine () 05/30/2024 08/27/2021, 11/22/2020, 11/01/2020 Depression Screening 02/08/2025 02/09/2024, 02/09/20 SDOH Screening 02/08/2025 02/09/2024 Alcohol/Substance Use Screening 10/19/2025 10/19/2024 Tobacco Screening 10/19/2025 10/19/2024 DTaP/Tdap/Td Vaccines (3 - Td or Tdap) 07/17/2028 07/17/2018, 09/13/2015 Lipid Panel 07/22/2028 07/22/2023, 07/31, 08/06/2021, Additional history exists RSV Patients and Patients Aged 60 years or older (1 - 1-dose 75+ series) 2046 Zoster Vaccines Completed 07/24/2021, 05/22/2021 HIV Screening Completed 07/22/2023 Hepatitis C Screening Completed 07/22/2023 Pneumococcal Vaccine: 50+ Years Completed 07/22/2023, 05/22/2021 Influenza Vaccine Completed 06/18/2024, , 08/12/2022, Additional history exists HIB Vaccines Aged Out No longer eligi [...] patient's age to complete this topic Meningococcal Vaccine Aged Out No adam cullen eligible based on patient's age to complete this topic RSV under 20 months Aged Out No longe r eligible based on patient's age to complete this topic Rotavirus Vaccines Aged Out No longer eligible based on patient's age to complete this topic Goals Goal Patient Goal Type Associated Problems Recent Progress Patient-Stated? Author Record your blood pressure once per day Blood Pressure No Puia, Lilian, PharmD Blood Pressure < 140/90 Blood Pressure 134/84( 025 9:22 AM EST) No Puia, Lilian, PharmD Procedures Procedure Name Priority Date/Time Associated Diagnosis Comments POCT LUCIA-14 URINE DRUG SCREEN Routine 09/01/2024 8:51 AM EST Chronic low back pain, unspecified back pain laterality, unspecified whether sciatica present HEPATITIS C ANTIBODY Routine 07/22/2023 10:32 AM EDT Need for hepatitis C screening test HIV ANTIBODY/ANTIGEN ([place] [facility]) Routine 07/22/2023 10:32 AM EDT LIPID PANEL, STANDARD Routine 07/22/2023 10:32 AM EDT High cholesterol from Last 3 Months or Most Recently Relevant to Health Maintenance Results * POCT LUCIA-14 Urine Drug Screen (09/01/2024 8:51 AM EST) Oxycodone Screen, Urine Positive Urine Urine specimen obtained by clean catch procedure / Unknown 09/01/2024 8:51 AM EST Juliana Stout RN - 09/01/2024 8:51 AM EST UTOX cup Lot#[id number] Exp. 05/18/26 Internal Pass Control Osbaldo Gentile MD POINT OF CARE TEST ENTER/EDIT OR DERABLES Final Result * Hepatitis C Ab (07/22/2023 10:32 AM EDT) Hepatitis C Antibody Nonreactive Nonreactive [facility] Comment:Antibodies to HCV no t detected; does not exclude early acuteHCV infection. Blood Venous blood specimen / Unknown 07/22/2023 10:32 AM EDT 07/22/2023 11:23 AM EDT us Osbaldo Gentile MD LAB BLOOD ORDERABLES Final Resul t Performing Organization Address [facility]/ZIP Co de Phone Number [facility] [address] [place] [phone] * HIV Ab/Ag ([facility]) (07/22/2023 10:32 AM EDT) HIV AB/AG Nonreactive Nonreactive [facility] Comment:HIV-1 p24 Ag and/or HIV-1/HIV-2 Ab not detected.A test result that is nonreactive does not exclude thepossibility of exposure to or infection with HIV-1 and/orHIV-2. Nonreactive results in this assay for individualswith prior exposure to HIV-1 and/or HIV-2 may be due toantigen and antibody levels that are below the limit ofdetection of this assay.The [employer] HIV Ag/Ab Combo assay result andsupplemental assay results should be interpreted inconjunction with the patient's clinical presentation,history and other laboratory results. If the results areinconsistent with clinical evidence, additional testing issuggested to confirm the result. 07/22/2023 10:3 2 AM EDT 07/22/2023 11:23 AM EDT us Osbaldo Gentile MD LAB BLOOD ORDERABLES Final Resul t Performing Organization Address [facility]/ZIP Co de Phone Number [facility] [address] [place] [phone] [phone] * (ABNORMAL) Lipid Panel, Standard (07/22/2023 10:32 AM EDT) Triglycerides 119 <150 mg/dL [facility] Comment:Desirable Triglyceri de: less than 150 mg/dLBorderline High Triglyceride 150-199 mg/dLHigh Triglyceride: 200-499 mg/dLVery High Triglyceride: greater than or equal to 5OO mg/dL Cholesterol 203(H) <200 mg/dL [facility] Comment:Desirable Cholestero l: less than 200 mg/dLBorderline High Cholesterol: 200-239 mg/dLHigh Cholesterol: greater than 239 mg/dL LDL Cholesterol Calculated 129(H) <100 mg/dL [facility] Comment:Desirable LDL: less than 100 mg/dLNear Optimal/Above Optimal LDL: 110- 129 mg/dLBorderline High LDL: 130-159 mg/dLHigh LDL: 160-189 mg/dLVery High LDL: greater than or equal to 190 mg/dL HDL Cholesterol 51 >40 mg/dL [facility] Comment:Desirable HDL: great er than 40 mg/dL Note: This HDL assay may give artificially low results in patients with liver disease. Blood Venous blood specimen / Unknown 07/22/2023 10:32 AM EDT 07/22/2023 11:23 AM EDT us Osbaldo Gentile MD LAB BLOOD ORDERABLES Final Resul t [facility] [address] [place] [phone] [phone] from Last 3 Months or Most Recently Relevant to Health Maintenance Insurance [facility] Care Teams Craps Manager Relationship Specialty Start Date End Date Name, MD Osbaldo [address] [place] [phone] PCP - General Family Medicine 09/02/19
--- OUTSIDE RECORDS SUMMARY | 2024-11-05 15:20 | XMS_ITS | Encounter Summary ---
Author Organization [email or web address] Address [address] [place] [address] 7t [place] [address] Care Team Providers Care Marker Maker Name Role Phone Name, Osbaldo RASCON Primary Care Provider [phone] Reason for Visit * Reason Comments Med Refill Encounter Details Date Type Department Care Team (Late st Contact Info) Description 10/06/2024 Refill [facility] [address] [place] [address] Name, MD Osbaldo [address] [place], [place] [phone] Chronic low back pain, unspecified back pain [...] Clinical Support [facility] [address] [place] [address] Juliana Pinedo RN documented as of this [...] documented as of this encounter Care Teams Marker Maker Relationship Specialty Start Date End Date Name, MD Osbaldo [address] [place] [address] PCP - General Family Medicine 09/02/19 documented as of this encounter
--- OUTSIDE RECORDS SUMMARY | 2024-11-05 15:20 | XMS_ITS | Encounter Summary ---
Author Organization [employer] Address [address] [place] [address] 7t [place] [address] Care Team Providers Care Vamp Wetter Name Role Phone NameOsbaldo MD Primary Care Provider [phone] Lilian Baugh PharmD Unavailable [phone] Reason for Visit * Reason Onset Date Comments Med Refill 01/29/2024 Encounter Details Date Type Department Care Team ([facility] st Contact Info) Description 01/29/2024 Refill [facility] 230 [place], [place] [phone] Name, MD Osbaldo 230 [place] [address] Essential (primary) hypertension Social History Tobacco Use [...] Description 12/29/2024 9:00 AM EDT Clinical Support [facility] [address] [place] [address] Juliana Pinedo RN documented as of this encounter Goals Goal Patient Goal Type Associated Problems Recent Progress Patient-Stated? Author Record your blood pressure once per day Blood Pressure No Lilian Baugh PharmD Blood Pressure < 140/90 Blood Pressure 134/84( 025 9:22 AM EST) No Lilian Baugh, PharmD documented as of this encounter Visit Diagnoses Diagnosis Essential (primary) hypertension Unspecified essential hypertension documented in this encounter Additional Health Concerns Assessment Noted Time PHQ-9 Depression Total Score: 8 01/21/20 23 3:35 PM EDT documented as of this encounter Care Teams Vamp Wetter Relationship Specialty Start Date End Date Name, MD Osbaldo [address] [place] [address] PCP - General Family Medicine 09/02/19 Lilian Baugh PharmD [address] [place] [address] Pharmacist Internal Medicine 05/02/23 02/24/24 documented as of this encounter
--- OUTSIDE RECORDS SUMMARY | 2024-11-05 15:20 | XMS_ITS | Encounter Summary ---
Author Organization [email or web address] Address [address] [place] [address] 7t [place] [address] Care Team Providers Care Gerontology Aide Name Role Phone Name, Osbaldo RASCON Primary Care Provider [phone] Lilian Baugh PharmD Unavailable [phone] Reason for Visit * Reason Onset Date Comments Med Refill 05/01/2023 Encounter Details Date Type Department Care Team ([facility] st Contact Info) Description 05/01/2023 Telephone [facility] MEDICINE 230 [place], [place] [phone] Name, MD Osbaldo 230 [place] [address] Med Refill Social History Tobacco Use Types Packs/Day Years [...] encounter Miscellaneous Notes * Telephone Encounter - Shruti Harrington LPN - 05/01/2023 11:21 AM EDT Medication pended to provider. * Telephone Encounter - Marija Cheek - 05/01/2023 11:15 AM EDT Tc from pt requesting medication refill on Vitamin D3 50 mcg (2,000 unit) capsule documented in this encounter Plan of Treatment Upcoming Encounters Date Type Department Care Team (Late st Contact Info) Description 12/29/2024 9:00 AM EDT Clinical Support [facility] MEDICINE [address] [place] [address] Juliana Pinedo, TOÑO documented as of this [...] documented as of this encounter Care Teams Gerontology Aide Relationship Specialty Start Date End Date Name, MD Osbaldo [address] [place] [address] PCP - General Family Medicine 09/02/19 Lilian Baugh, PharmD [address] [place] [address] Pharmacist Internal Medicine 05/02/23 02/24/24 documented as of this encounter
--- OUTSIDE RECORDS SUMMARY | 2024-11-05 15:21 | XMS_ITS | Encounter Summary ---
Author Organization [employer] Address [address] [place] [address] 7t [place] [address] Care Team Providers Care Renewable Energy Consultant Name Role Phone Name, Osbaldo RASCON Primary Care Provider [phone] Lilian Baugh PharmD Unavailable [phone] Reason for Visit * Reason Onset Date Comments Appointment Request 01/02/2023 Encounter Details Date Type Department Care Team ([facility] st Contact Info) Description 01/02/2023 Telephone [facility] MED[facility]INE 230 [place], [place] [phone] Name, MD Osbaldo [address] [place] [address] Appointment Request Social History Tobacco Use Types Packs/Day Years [...] suspected to have Coronavirus/COVID-19? No / Unsure 12/06/2022 1:10 PM EST documented as of this encounter Miscellaneous Notes * Telephone Encounter - King Martinez - 01/02/2023 2:57 PM EDT Tc from pt requesting a office visit with PCP. Angle Bender attempted to book appt but no available appt. Please contact pt at [phone] documented in this encounter Plan of Treatment Upcoming Encounters Date Type Department Care Team (Late st Contact Info) Description 12/29/2024 9:00 AM EDT Clinical Support [facility] [address] [place] [address] Juliana Pinedo, RN documented as of this encounter Visit Diagnoses Not on filedocumented in this encounter Care Teams Renewable Energy Consultant Relationship Specialty Start Date End Date Name, MD Osbaldo [address] [place] [address] PCP - General Family Medicine 09/02/19 Lilian Baugh PharmD [address] [place] [address] Pharmacist Internal Medicine 05/02/23 02/24/24 documented as of this encounter
--- OUTSIDE RECORDS SUMMARY | 2024-11-05 15:21 | XMS_ITS | Encounter Summary ---
Author Organization [employer] Address [address] [place] [address] 7t [place] [address] Care Team Providers Care Loan Servicing Representative Name Role Phone Name, Osbaldo RASCON Primary Care Provider [phone] Reason for Visit * Reason Onset Date Comments Med Refill 06/28/2024 Encounter Details Date Type Department Care Team ([facility] st Contact Info) Description 06/28/2024 Refill [facility] MEDICINE 230 [place], [place] [phone] Name, MD Osbaldo 230 [place], [place] [phone] Moderate asthma with status asthmaticus, unspecified whether persistent; Essential (primary) hypertension Social [...] Description 12/29/2024 9:00 AM EDT Clinical Support [facility]INE [address] [place] [address] Juliana Pinedo, RN documented as of this encounter Goals Goal Patient Goal Type Associated Problems Recent Progress Patient-Stated? Author Record your blood pressure once per day Blood Pressure No Lilian Baugh, PharmD Blood Pressure < 140/90 Blood Pressure 134/84( 025 9:22 AM EST) No Lilian Baugh PharmD documented as of this encounter Visit Diagnoses Diagnosis Moderate asthma with status asthmaticus, unspecified whether persistent Essential (primary) hypertension Unspecified essential hypertension documented in this encounter Additional Health Concerns Assessment Noted Time PHQ-9 Depression Total Score: 0 02/09/20 24 3:17 PM EDT documented as of this encounter Care Teams Loan Servicing Representative Relationship Specialty Start Date End Date Name, MD Osbaldo [address] [place] [address] PCP - General Family Medicine 09/02/19 documented as of this encounter
--- OUTSIDE RECORDS SUMMARY | 2024-11-05 15:21 | XMS_ITS | Encounter Summary ---
Author Organization [employer] Address [address] [place] [address] 7t [place] [address] Care Team Providers Care Uranium Processing Supervisor Name Role Phone Name, Osbaldo RASCON Primary Care Provider [phone] Lilian Baugh PharmD Unavailable [phone] Encounter Details Date Type Department Care Team (Late Contact Info) Description 12/11/2022 Orders Only [facility] [address] [place] [address] Shruti Harrington LPN Social History Tobacco Use [...] PM EST documented as of this encounter Plan of Treatment Upcoming Encounters Date Type Department Care Team (Late Contact Info) Description 12/29/2024 9:00 AM EDT Clinical Support [facility] MEDICINE 230 [place], [place] [phone] Juliana Pinedo, RN documented as of this encounter Visit Diagnoses Not on filedocumented in this encounter Care Teams Uranium Processing Supervisor Relationship Specialty Start Date End Date Name, MD Osbaldo 230 [place], [place] [phone] PCP - General Family Medicine 09/02/19 Lilian Baugh, Anastasia [address] [place] [address] Pharmacist Internal Medicine 05/02/23 02/24/24 documented as of this encounter
--- OUTSIDE RECORDS SUMMARY | 2024-11-05 15:21 | XMS_ITS | Encounter Summary ---
Author Organization [employer] Address [address] [place] [address] 7t [place] [address] Care Team Providers Care Police Matron Name Role Phone Name, Osbaldo RASCON Primary Care Provider [phone] Reason for Visit * Reason Onset Date Comments Med Refill 04/22/2024 Encounter Details Date Type Department Care Team ([facility] st Contact Info) Description 04/22/2024 Refill [facility] MEDICINE [address] [place], [place] [phone] Name, MD Osbaldo [address] [place] [address] Social History Tobacco Use Types Packs/Day Years [...] Description 12/29/2024 9:00 AM EDT Clinical Support [facility]INE [address] [place] [address] Juliana Pinedo, RN documented as of this [...] documented as of this encounter Care Teams Police Matron Relationship Specialty Start Date End Date Name, MD Osbaldo [address] [place] [address] PCP - General Family Medicine 09/02/19 documented as of this encounter
--- OUTSIDE RECORDS SUMMARY | 2024-11-05 15:21 | XMS_ITS | Encounter Summary ---
Author Organization [employer] Address [address] [place] [address] 7t [place] [address] Care Team Providers Care Burial Agent Name Role Phone Name, Osbaldo RASCON Primary Care Provider [phone] Reason for Visit * Reason Onset Date Comments Med Refill 04/29/2024 Encounter Details Date Type Department Care Team (Late st Contact Info) Description 04/29/2024 Refill [facility] MEDICINE 230 [place], [place] [phone] Lissette Christie NP 230 [place], [place] [phone] Chronic low back pain, unspecified back pain [...] 12/29/2024 9:00 AM EDT Clinical Support [facility] MEDICINE [address] [place] [address] Juliana Pinedo RN documented as of this [...] documented as of this encounter Care Teams Burial Agent Relationship Specialty Start Date End Date Name, MD Osbaldo [address] [place] [address] PCP - General Family Medicine 09/02/19 documented as of this encounter
--- OUTSIDE RECORDS SUMMARY | 2024-11-05 15:21 | XMS_ITS | Encounter Summary ---
Author Organization [employer] Address [address] [place] [address] 7t [place] [address] Care Team Providers Care Speech Coach Name Role Phone Name, Osbaldo RASCON Primary Care Provider [phone] Reason for Visit * Reason Onset Date Comments Med Refill 06/07/2024 Encounter Details Date Type Department Care Team ([facility] st Contact Info) Description 06/07/2024 Refill [facility] MEDICINE 230 [place], [place] [phone] Name, MD Osbaldo 230 [place] [address] Social History Tobacco Use Types Packs/Day Years [...] Clinical Support [facility] MEDICINE [address] [place] [address] Juliana Pinedo, RN documented as of this [...] documented as of this encounter Care Teams Speech Coach Relationship Specialty Start Date End Date Name, MD Osbaldo [address] [place] [address] PCP - General Family Medicine 09/02/19 documented as of this encounter
--- OUTSIDE RECORDS SUMMARY | 2024-11-05 15:21 | XMS_ITS | Encounter Summary ---
Author Organization [employer] Address [address] [place] [address] 7t [place] [address] Care Team Providers Care Adult Care Provider Name Role Phone Name, Osbaldo RASCON Primary Care Provider [phone] Reason for Visit * Reason Onset Date Comments Med Refill 04/13/2024 Encounter Details Date Type Department Care Team ([facility] st Contact Info) Description 04/13/2024 Refill [facility] MEDICINE 230 [place], [place] [phone] Name, MD Osbaldo [address] [place] [address] Social History Tobacco Use Types Packs/Day Years [...] 9:00 AM EDT Clinical Support [facility] MEDICINE [address] [place] [address] Juliana Pinedo, RN documented as of this [...] documented as of this encounter Care Teams Adult Care Provider Relationship Specialty Start Date End Date Name, MD Osbaldo [address] [place] [address] PCP - General Family Medicine 09/02/19 documented as of this encounter
--- OUTSIDE RECORDS SUMMARY | 2024-11-05 15:21 | XMS_ITS | Encounter Summary ---
Author Organization [employer] Address [address] [place] [address] 7t [place] [address] Care Team Providers Care Copper Miner Name Role Phone Name, Osbaldo RASCON Primary Care Provider [phone] Lilian Baugh PharmD Unavailable [phone] Encounter Details Date Type Department Care Team (Late st Contact Info) Description 12/30/2022 Orders Only [facility] MEDICINE [address] [place] [address] [phone] Marya Weston LPN Social History Tobacco Use [...] Description 12/29/2024 9:00 AM EDT Clinical Support [facility] MEDICINE [address] [place] [address] Juliana Pinedo RN documented as of this encounter Visit Diagnoses Not on filedocumented in this encounter Care Teams Copper Miner Relationship Specialty Start Date End Date Name, MD Osbaldo [address] [place] [address] PCP - General Family Medicine 09/02/19 Lilian Baugh, AltheaD [address] [place] [address] Pharmacist Internal Medicine 05/02/23 02/24/24 documented as of this encounter
--- OUTSIDE RECORDS SUMMARY | 2024-11-05 15:21 | XMS_ITS | Encounter Summary ---
Author Organization [employer] Address [address] [place] [address] 7t [place] [address] Care Team Providers Care Human Resources Department Supervisor Name Role Phone Osbaldo Gentile MD Primary Care Provider [phone] Lilian Baugh PharmD Unavailable [phone] Reason for Visit * Reason Onset Date Comments Durable Medical Equipment 01/01/2023 Encounter Details Date Type Department Care Team ([facility] st Contact Info) Description 01/01/2023 Telephone [facility] MEDICINE 230 [place], [place] [phone] Name, MD Osbaldo [address] [place] [address] Durable Medical Equipment Social History Tobacco Use Types Packs/Day Years [...] encounter Miscellaneous Notes * Telephone Encounter - Julisa Santamaria - 01/01/2023 3:00 PM EDT TC to patient and advised him to call back and make an appointment with Dr. Gentile to discuss the need for nebulizer. Patient understood and agreed with plan. * Telephone Encounter - Germaine Erazo - 01/01/2023 2:43 PM EDT Tc from pt requesting status on nebulizer Machine Please contact pt at [phone] documented in this encounter Plan of Treatment Upcoming Encounters Date Type Department Care Team (Late st Contact Info) Description 12/29/2024 9:00 AM EDT Clinical Support [facility] MEDICINE [address] [place] [address] Juliana Pinedo, TOÑO documented as of this encounter Visit Diagnoses Not on filedocumented in this encounter Care Teams Human Resources Department Supervisor Relationship Specialty Start Date End Date Name, MD Osbaldo [address] [place] [address] PCP - General Family Medicine 09/02/19 Lilian Baugh, AltheaD [address] [place] [address] Pharmacist Internal Medicine 05/02/23 02/24/24 documented as of this encounter
--- OUTSIDE RECORDS SUMMARY | 2024-11-05 15:21 | XMS_ITS | Encounter Summary ---
Author Organization [employer] Address [address] [place] [address] 7t [place] [address] Care Team Providers Care Air Crew Officer Name Role Phone Name, Osbaldo RASCON Primary Care Provider Reason for Visit * Reason Onset Date Comments Med Refill 04/22/2024 Encounter Details Date Type Department Care Team ([facility] st Contact Info) Description 04/22/2024 Refill [facility] MEDICINE [address] [place], [place] [phone] Name, MD Osbaldo [address] [place] [address] Essential (primary) hypertension Social History Tobacco Use [...] Description 12/29/2024 9:00 AM EDT Clinical Support [facility] MEDICINE [address] [place] [address] Juliana Pinedo, RN documented as of this [...] documented as of this encounter Care Teams Air Crew Officer Relationship Specialty Start Date End Date Name, MD Osbaldo [address] [place] [address] PCP - General Family Medicine 09/02/19 documented as of this encounter
== END 2024-11-05 15:18 | disposition home or self-care (01) ==
LOC: HO.XRAY 15:17
PROVIDERS: PCP Internal Medicine Geriatric Medicine; Visit Provider Nurse Practitioner Family
DX: M47.817 Spondylosis without myelopathy or radiculopathy, lumbosacral region (principal); M53.3 Sacrococcygeal disorders, not elsewhere classified; G89.29 Other chronic pain
CPT/HCPCS: 72110; 72202

== ENCOUNTER → 2024-11-05 15:24 | Outpatient (BNV) | payer OTHER, SELFPAY | PROVIDERS: PCP Internal Medicine Geriatric Medicine; Visit Provider Radiology Diagnostic Radiology | DX: M47.817 Spondylosis without myelopathy or radiculopathy, lumbosacral region (principal) | CPT/HCPCS: 72110; 72202 ==

== ENCOUNTER 2025-02-03 08:14 | Outpatient (AMB) | payer OTHER, SELFPAY ==
--- NOTE | 2025-02-03 08:18 | A.OFFVIS_ITS ---
Intake Visit Reasons: nocturia Intake Note: New Patient presents for initial visit for nocturia Urology Medications: tamsuosin Blood Thinner: none PVR: 48ml's Post Office Manager Required: No Accompanied by: Self / Same As Patient Allergies No Known Allergies Allergy (Verified 02/03/25 08:46) Medication List - Last Reconciled 02/03/25 by TONI Judd-KRYSTA albuterol sulfate 2.5 mg inhalation Q20M bdoxaccaqa-jdhrpcvzq-pmzxcanaw 5-160-25 mg 1 tab PO DAILY gabapentin 300 mg PO TID szsghgbvhxcz-uxvtqysn-gydhsp 1 tab PO DAILY oxycodone-acetaminophen 10-325 mg 1 tab PO Q6H PRN tamsulosin 0.4 mg PO BEDTIME HPI Comments Details: Hank is a 54-year-old male patient of Dr. Gentile. He has a past medical history of hypertension, anxiety, depression, and lumbar radiculopathy. He presents to the office today as a new patient for nocturia as well as erectile dysfunction. In discussion with the patient today he reports noting over the last 18 months he has been having increased episodes of nocturia. He reports episodes of nocturia between 2 to 4 times per night. He also reports following up with his PCP for ongoing issues with maintaining his erections and has previously trialed Viagra without improvement in most recently started Cialis 20 mg as needed prior to sexual activity. He also reports being given Flomax to assist with episodes of nocturia however is unsure if this has been helpful. He otherwise denies urinary urgency, urinary frequency, incontinence, hematuria, dysuria, foul smelling urine, changes to urinary stream, flank pain, fever, and or chills. In office urinalysis results reviewed with the patient today. PVR 48 mL. We discussed at length potential causes of nocturia as well as erectile dysfunction and further treatment options of these urological conditions as well as risks and benefits of these treatment options. He does report episodes of snoring however is unsure as to how frequent these episodes happen. He denies any previous trauma. All questions were answered. DEEDEE offered however deferred. In review of patient's chart it appears PSA 10/18 0.4. Plan To address nocturia likely due to BPH, I have advised continuing tamsulosin at night, with fluid intake restrictions before bedtime. Further evaluation of prostate health with PSA testing and ultrasound is planned. I am exploring an adjusted tadalafil dosing schedule for improved management of erectile dysfunction. Should these measure fail, intracavernosal injections may be considered, following thorough discussion and consent. We also discussed penile pump and rings. Consent, addressing the risks, benefits, and alternatives, was secured. Patient was informed and verbally consented to the use of an ambient scribe for clinic note documentation during this visit. Discussion Notes I explained to the patient potential causes of nocturia, necessitating medication adjustment to nighttime dosing of tamsulosin to maximize symptom relief. Lifestyle modifications, particularly concerning fluid intake before bedtime, were emphasized. I have scheduled PSA blood work and an ultrasound to evaluate the prostate further. We discussed the patient's erectile dysfunction and potential management via increased tadalafil frequency, respecting his preference towards non-invasive treatments. If symptoms persist, the alternative of penile injections was in troduced, detailing administration and anticipated outcomes. We addressed the importance of addressing lifestyle factors like stress and weight management. [facility] Medical History Depression with anxiety Hypertension Chronic sacroiliac joint pain Chronic left-sided lumbar radiculopathy Social History Alcohol intake: current Alcohol type: wine Patient Tobacco Use Status: Never used Tobacco Review of Systems Const All systems reviewed & are unremarkable except as noted in HPI and below Physical Exam Const General: cooperative, healthy appearing, comfortable, no acute distress, well developed, alert and awake Nutritional Appearance: overweight Orientation/consciousness: patient oriented x3 Limitations: no limitations HEENT Head: Yes normal to inspection, Yes normocephalic and Yes atraumatic Ears: hearing grossly normal bilaterally Eyes General: appearance normal, both eyes and all related structures Neck Neck: Yes normal visual inspection and Yes trachea midline Chest Chest palpation & inspection: normal inspection of the chest Resp Effort & Inspection: normal respiratory effort and able to speak in complete sentences Cardio Rate: regular rate GI Inspection: Yes normal to inspection General: Yes no CVA tenderness Back/Spine/Pelvis Back: no CVA tenderness Skin General skin exam: no rashes or lesions noted Neuro General: patient oriented x3 Extrem General: Yes normal to inspection Psych Appearance: grossly normal and well kempt Mental Status: mental status grossly normal Speech and movement: Normal speech and movement present and Clear speech present Affect: normal affect Attitude: cooperative Thought process: Normal thought process present Thought content: Normal thought content present Insight: Fair insight present (Psych) Judgement: Fair judgement present (Psych) Office Procedures Post Void Residual Post Residual Void Post Void Residual (PVR): 48 53712-[id number] Void Residual by ultrasound Results AMB Urinalysis, Automated UA Leukoctes 0 Alfred/uL Last Edit by Clary HaqueQuikly on 02/03/25 08:32 UA Nitrite Negative Last Edit by Sh[employer] ShabnamQuikly on 02/03/25 08:32 UA Urobilinogen 0.2 mg/dL Last Edit by MolinaFengguo Yony on 02/03/25 08:32 UA Protein 0 mg/dL Last Edit by [employer] ShabnamQuikly on 02/03/25 08:32 UA pH 6.5 Last Edit by [employer] on 02/03/25 08:32 UA Blood 0 Dannie/uL Last Edit by [employer] ShabnamQuikly on 02/03/25 08:32 UA Specific [place] 1.015 Last Edit by [employer] on 02/03/25 08:32 UA Ketone Last Edit by [employer] on 02/03/25 08:32 UA Bilirubin 0 mg/dL Last Edit by [employer] on 02/03/25 08:32 UA Glucose 0 mg/dL Last Edit by [employer] on 02/03/25 08:32 Results Reviewed Results Reviewed: Laboratory Last Values Urine pH (Auto) 6.5 02/03/25 08:23 Specific [place] (Auto) 1.015 02/03/25 08:23 Urine Protein (Auto) 0 mg/dL 02/03/25 08:23 Glucose (UA)(Auto) 0 mg/dL 02/03/25 08:23 Urine Blood (Auto) 0 Dannie/uL 02/03/25 08:23 Urine Nitrite (Auto) Negative 02/03/25 08:23 Urine Bilirubin (Auto) 0 mg/dL 02/03/25 08:23 Urine Urobilinogen (Auto) 0.2 mg/dL 02/03/25 08:23 Leukocyte Esterase (Auto) 0 Alfred/uL 02/03/25 08:23 Assessment & Plan Assessment & Plan (1) Erectile dysfunction: Code(s): N52.9 - Male erectile dysfunction, unspecified Category: Medical (2) Nocturia: Code(s): R35.1 - Nocturia Category: Medical Plan In office urinalysis results reviewed with the patient today; as noted above. PVR 48 mL. We discussed at length potential causes of nocturia as well as erectile dysfunction; we discussed further treatment options and risks and benefits of these treatment options. We discussed lifestyle modifications to assist with these urological conditions. Will obtain PSA and retroperitoneal ultrasound for further assessment evaluation. Start Cialis 5 mg daily as discussed and prescribed. Prescription provided for p.r.n. dosing DEEDEE offered however deferred. Follow-up in 1-3 months with imaging and labs; or sooner with any issues, concerns, and or questions. Orders: Orders Prostate Specific Antigen Today N52.9 - Male erectile dysfunction, unspecified, R35.1 - Nocturia US retroperitoneal comp Today N52.9 - Male erectile dysfunction, unspecified, R35.1 - Nocturia Hemoglobin A1c Today E11.9 - Type 2 diabetes mellitus without complications AMB Urinalysis Automated Today Z13.9 - Encounter for screening, unspecified AMB Post Void Residual by ultrasound Today Z13.9 - Encounter for screening, unspecified Medications: New tadalafil (Cialis) [id number] [facility] [id number] Member [id number] 5 mg PO DAILY 90 days 90 tabs 1RF tadalafil (Cialis) Take 1-2 tablets 1 hour prior to sexual activity; not to exceed more than 3 times per week [id number] [facility] [id number] Member [id number] 10 mg PO .PRN 30 days PRN 20 tabs 3RF sexual activity Patient Instructions: The patient had an opportunity to ask questions regarding the treatment plan. All questions were answered. Physical exam, labs, and imaging were discussed and reviewed in detail. As well as risks, benefits, and discussion of treatment choices. No major barriers to understanding were identified. The patient expressed understanding and agreement with the above treatment plan. The patient was made aware they should contact our office by phone for worsening of their current condition, the appearance of new symptoms, or with any questions or concerns. Compliance is encouraged with any medications and follow up testing that is ordered. It is a privilege to be allowed the opportunity to participate in? your urological care.? Again, if you have any questions or concerns If you have any questions or concerns please do not hesitate to contact me. The office is [phone]. This note is constructed using voice recognition software. While every effort has been made to ensure accuracy security installer errors may have been included. Yours sincerely, JAYLIN Judd Coding Level of Care Code New Pt Level 4 (88261) Diagnoses Erectile dysfunction N52.9 Nocturia R35.1 CPT Codes Post Residual Void - PVR CPT Code: 14924-[id number] Void Residual by ultrasound ( [id number])
--- OUTSIDE RECORDS SUMMARY | 2025-02-03 08:30 | XMS_ITS | Encounter Summary ---
Author Organization [employer] Address [address] [place] [address] [address]t [place] [address] Care Team Providers Care Preformer Impregnated Fabrics Name Role Phone Name, Osbaldo RASCON Primary Care Provider [phone] Reason for Visit * Reason Onset Date Comments Med Refill 12/03/2024 Encounter Details Date Type Department Care Team (Late st Contact Info) Description 12/03/2024 Refill [facility] [address] [place], [place] [phone] Name, MD Osbaldo [address] [place] [address] Chronic low back pain, unspecified back pain [...] Care Team (Late st Contact Info) Description 02/23/2025 9:00 AM EDT Clinical Support [address] [address] Juliana Pinedo RN 03/28/2025 10:00 AM EDT Office Visit [address] [address] Name, MD Osbaldo [address] [place] [address] documented as of this encounter Goals Goal [...] documented as of this encounter Care Teams Preformer Impregnated Fabrics Relationship Specialty Start Date End Date NameOsbaldo MD [address] [place] [address] PCP - General Family Medicine 09/02/19 documented as of this encounter
--- OUTSIDE RECORDS SUMMARY | 2025-02-03 08:30 | XMS_ITS | Encounter Summary ---
Author Organization [employer] Address [address] [place] [address] 7t [place] [address] Care Team Providers Care Traveling Buyer Name Role Phone Name, Osbaldo RASCON Primary Care Provider [phone] Reason for Visit * Reason Onset Date Comments Med Refill 12/30/2024 Encounter Details Date Type Department Care Team (Late st Contact Info) Description 12/30/[address] [facility] MEDICINE [address] [place], [place] [phone] Name, MD Osbaldo [address] [place], [place] [phone] Chronic low back pain, unspecified back pain [...] Description 02/23/2025 9:00 AM EDT Clinical Support [address] [address] Jluiana Pinedo RN 03/28/2025 10:00 AM EDT Office Visit [address] [address] Name, MD Osbaldo [address] [place] [address] documented as of this encounter Goals Goal [...] documented as of this encounter Care Teams Traveling Buyer Relationship Specialty Start Date End Date NameOsbaldo MD [address] [place] [address] PCP - General Family Medicine 09/02/19 documented as of this encounter
--- OUTSIDE RECORDS SUMMARY | 2025-02-03 08:30 | XMS_ITS | Encounter Summary ---
Author Organization [employer] Address [address] [place] [address] 7 [place] [address] Care Team Providers Care Mailroom Manager Name Role Phone Name, Osbaldo RASCON Primary Care Provider [phone] Reason for Visit * Reason Onset Date Comments Med Refill 01/10/2025 Encounter Details Date Type Department Care Team ([facility] st Contact Info) Description 01/10/2025 Refill [facility] MEDICINE [address] [place], [place] [phone] Name, MD Osbaldo [address] [place] [address] Social History Tobacco Use Types Packs/Day Years [...] Description 02/23/2025 9:00 AM EDT Clinical Support [facility] [address] [place] [address] Juliana Pinedo RN 03/28/2025 10:00 AM EDT Office Visit [facility] [address] [place] [address] Name, MD Osbaldo [address] [place] [address] documented as of this encounter Goals Goal [...] documented as of this encounter Care Teams Mailroom Manager Relationship Specialty Start Date End Date NameOsbaldo MD [address] [place] [address] PCP - General Family Medicine 09/02/19 documented as of this encounter
--- OUTSIDE RECORDS SUMMARY | 2025-02-03 08:30 | XMS_ITS | Encounter Summary ---
Author Organization [employer] Address [address] [place] [address] 7 [place] [address] Care Team Providers Care Hand Mixer Name Role Phone Name, Osbaldo RASCON Primary Care Provider [phone] Reason for Visit * Reason Onset Date Comments Med Refill 01/31/2025 Encounter Details Date Type Department Care Team ([facility] [place] st Contact Info) Description 01/31/2025 Refill [facility] MEDICINE 230 [place], [place] [phone] Name, MD Osbaldo 230 [place] [address] Social History Tobacco Use Types Packs/Day Years [...] Description 02/23/2025 9:00 AM EDT Clinical Support [facility] MEDICINE [address] [place] [address] Juliana Pinedo RN 03/28/2025 10:00 AM EDT Office Visit [facility] MEDICINE [address] [place] [address] Name, MD Osbaldo [address] [place] [address] documented as of this encounter Goals Goal [...] documented as of this encounter Care Teams Hand Mixer Relationship Specialty Start Date End Date NameOsbaldo MD [address] [place] [address] PCP - General Family Medicine 09/02/19 documented as of this encounter
--- OUTSIDE RECORDS SUMMARY | 2025-02-03 08:30 | XMS_ITS | Encounter Summary ---
Author Organization [employer] Address [address] [place] [address] 7t [place] [address] Care Team Providers Care Telephone Station Installer Name Role Phone Name, Osbaldo RASCON Primary Care Provider [phone] Reason for Visit * Reason Onset Date Comments Med Refill 12/27/2024 Encounter Details Date Type Department Care Team (Late st Contact Info) Description 12/27/2024 Refill [facility] MEDICINE [address] [place], [place] [phone] Georgina Hirsch, ANP 230 [place] [address] Gastroesophageal reflux disease, unspecified whether esophagitis present [...] Description 02/23/2025 9:00 AM EDT Clinical Support [facility] MEDICINE [address] [place] [address] Juliana Pinedo RN 03/28/2025 10:00 AM EDT Office Visit [address] [address] NameOsbaldo MD [address] [place] [address] documented as of this encounter Goals Goal [...] documented as of this encounter Care Teams Telephone Station Installer Relationship Specialty Start Date End Date Osbaldo Gentile MD [address] [place] [address] PCP - General Family Medicine 09/02/19 documented as of this encounter
--- OUTSIDE RECORDS SUMMARY | 2025-02-03 08:30 | XMS_ITS | Encounter Summary ---
Author Organization [employer] Address [address] [place] [address] 7t [place] [address] Care Team Providers Care Mobile Application Developer Name Role Phone Name, Osbaldo RASCON Primary Care Provider [phone] Lilian Baugh PharmD Unavailable [phone] Reason for Visit * Reason Onset Date Comments Nurse Triage 09/08/2023 Encounter Details Date Type Department Care Team ([facility] st Contact Info) Description 09/08/[address] [facility] MEDICINE [address] [place], [place] [phone] Name, MD Osbaldo 230 [place] [address] Nurse Triage Social History Tobacco Use Types [...] accepted this outcome Please contact pt at [phone] (No clinic lpn needed) documented in this encounter Plan of Treatment Upcoming Encounters Date Type Department Care Team ([facility] st Contact Info) Description 02/23/2025 9:00 AM EDT Clinical Support [address] [address] Juliana Pinedo TOÑO 03/28/2025 10:00 AM EDT Office Visit [facility] MEDICINE [address] [place] [address] Name, [place] [address] documented as of this encounter Goals Goal [...] documented as of this encounter Care Teams Mobile Application Developer Relationship Specialty Start Date End Date Name, MD Osbaldo [address] [place] [address] PCP - General Family Medicine 09/02/19 Lilian Baugh, PharmD [address] [place] [address] Pharmacist Internal Medicine 05/02/23 02/24/24 documented as of this encounter
--- OUTSIDE RECORDS SUMMARY | 2025-02-03 08:30 | XMS_ITS | Encounter Summary ---
Author Organization [employer] Address [address] [place] [address] 7t [place] [address] Care Team Providers Care Grounds Supervisor Name Role Phone Name, Osbaldo RASCON Primary Care Provider [phone] Reason for Visit * Reason Onset Date Comments Med Refill 01/27/2025 Encounter Details Date Type Department Care Team (Late st Contact Info) Description 01/27/2025 Refill [facility] MEDICINE 230 [place], [place] [phone] Darcie Cunha MD [address] [place], [place] [phone] Chronic low back pain, unspecified back pain [...] Description 02/23/2025 9:00 AM EDT Clinical Support [address] [address] Juliana Pinedo RN 03/28/2025 10:00 AM EDT Office Visit [address] [address] Name, MD Osbaldo [address] [place] [address] documented as of this encounter Goals Goal [...] documented as of this encounter Care Teams Grounds Supervisor Relationship Specialty Start Date End Date Osbaldo Gentile MD [address] [place] [address] PCP - General Family Medicine 09/02/19 documented as of this encounter
--- OUTSIDE RECORDS SUMMARY | 2025-02-03 08:31 | XMS_ITS | Encounter Summary ---
Author Organization [employer] Address [address] [place] [address] 7t [place] [address] Care Team Providers Care Entry Specialist Name Role Phone Name, Osbaldo RASCON Primary Care Provider Lilian Baugh PharmD Unavailable [phone] Reason for Visit * Reason Comments Med Refill Encounter Details Date Type Department Care Team (Late st Contact Info) Description 05/25/2023 Refill [facility] MEDICINE [address] [place] [address] Name, MD Osbaldo [address] [place] [address] Social History Tobacco Use Types Packs/Day Years [...] Description 02/23/2025 9:00 AM EDT Clinical Support [facility] MEDICINE [address] [place] [address] Juliana Pinedo RN 03/28/2025 10:00 AM EDT Office Visit [facility] MEDICINE [address] [place] [address] Name, MD Osbaldo [address] [place] [address] documented as of this encounter Goals Goal [...] documented as of this encounter Care Teams Entry Specialist Relationship Specialty Start Date End Date Name, MD Osbaldo [address] [place] [address] PCP - General Family Medicine 09/02/19 Lilian Baugh, PharmD [address] [place] [address] Pharmacist Internal Medicine 05/02/23 02/24/24 documented as of this encounter
--- OUTSIDE RECORDS SUMMARY | 2025-02-03 08:31 | XMS_ITS | Clinical Summary ---
Author Organization [facility] Address [address] [place] [address] Care Team Providers Care Delinquency Counselor Name Role Phone Ariana Haro MD Primary [...] age to complete this topic Care Teams Delinquency Counselor Relationship Specialty Start Date End Date Ariana Haro MD PCP - General 08/15/17
--- OUTSIDE RECORDS SUMMARY | 2025-02-03 08:31 | XMS_ITS | Encounter Summary ---
Author Organization [employer] Address [address] [place] [address] 7t [place] [address] Care Team Providers Care Sales Correspondence Clerk Name Role Phone Name, Osbaldo RASCON Primary Care Provider [phone] Lilian Baugh PharmD Unavailable [phone] Reason for Visit * Reason Onset Date Comments Med Refill 01/29/2024 Encounter Details Date Type Department Care Team (Late st Contact Info) Description 01/29/2024 Refill [facility] MEDICINE 230 [place], [place] [phone] Name, MD Osbaldo [address] [place] [address] Social History Tobacco Use Types Packs/Day Years [...] Description 02/23/2025 9:00 AM EDT Clinical Support [facility] MEDICINE [address] [place] [address] Juliana Pinedo RN 03/28/2025 10:00 AM EDT Office Visit [address] [address] Name, MD Osbaldo [address] [place] [address] documented as of this encounter Goals Goal Patient Goal Type Associated Problems Recent Progress Patient-Stated? Author Record your blood pressure once per day Blood Pressure No PuLilian ramirez, PharmD Blood Pressure < 140/90 Blood Pressure 134/84( 025 9:22 AM EST) No Finaia Lilian, PharmD documented as of this encounter Visit Diagnoses Not on filedocumented in this encounter Additional Health Concerns Assessment Noted Time PHQ-9 Depression Total Score: 8 01/21/20 23 3:35 PM EDT documented as of this encounter Care Teams Sales Correspondence Clerk Relationship Specialty Start Date End Date Name, MD Osbaldo [address] [place] [address] PCP - General Family Medicine 09/02/19 Kinjal Baughsa, PharmD [address] [place] [address] Pharmacist Internal Medicine 05/02/23 02/24/24 documented as of this encounter
--- OUTSIDE RECORDS SUMMARY | 2025-02-03 08:31 | XMS_ITS | Encounter Summary ---
Author Organization [employer] Address [address] [place] [address] 7t [place] [address] Care Team Providers Care Aed Trainer Name Role Phone Name, Osbaldo RASCON Primary Care Provider [phone] Lilian Baugh PharmD Unavailable [phone] Reason for Visit * Reason Onset Date Comments Med Refill 05/01/2023 Encounter Details Date Type Department Care Team (Late st Contact Info) Description 05/01/2023 Telephone [facility] [address] [place], [place] [phone] Name, MD Osbaldo [address] [place] [address] Med Refill Social History Tobacco Use Types [...] to provider. * Telephone Encounter - Marija Ham - 05/01/2023 11:15 AM EDT Tc from pt requesting medication refill on Vitamin D3 50 mcg (2,000 unit) capsule documented in this encounter Plan of Treatment Upcoming Encounters Date Type Department Care Team (Late st Contact Info) Description 02/23/2025 9:00 AM EDT Clinical Support [facility] [address] [place] [address] Juliana Pinedo, RN 03/28/2025 10:00 AM EDT Office Visit [facility] [address] [place] [address] Name, [place] [address] documented as of this encounter Goals Goal [...] documented as of this encounter Care Teams Aed Trainer Relationship Specialty Start Date End Date Name, MD Osbaldo [address] [place] [address] PCP - General Family Medicine 09/02/19 Puia, Lilian, PharmD [address] [place] [address] Pharmacist Internal Medicine 05/02/23 02/24/24 documented as of this encounter
--- OUTSIDE RECORDS SUMMARY | 2025-02-03 08:31 | XMS_ITS | Encounter Summary ---
Author Organization [employer] Address [address] [place] [address] 7t [place] [address] Care Team Providers Care Shank Cutter Name Role Phone Name, Osbaldo RASCON Primary Care Provider [phone] Lilian Baugh PharmD Unavailable [phone] Reason for Visit * Reason Onset Date Comments Med Refill 07/23/2023 Encounter Details Date Type Department Care Team (Late st Contact Info) Description 07/23/[address] [facility] 230 [place], [place] [phone] Lb Noriega MD 230 [place] [address] Social History Tobacco Use Types Packs/Day Years [...] Description 02/23/2025 9:00 AM EDT Clinical Support [facility] [address] [place] [address] Juliana Pinedo RN 03/28/2025 10:00 AM EDT Office Visit [facility] [address] [place] [address] Name, MD Osbaldo [address] [place] [address] documented as of this encounter Goals Goal [...] documented as of this encounter Care Teams Shank Cutter Relationship Specialty Start Date End Date Osbaldo Gentile MD [address] [place] [address] PCP - General Family Medicine 09/02/19 Lilian Baugh, PharmD [address] [place] [address] Pharmacist Internal Medicine 05/02/23 02/24/24 documented as of this encounter
--- OUTSIDE RECORDS SUMMARY | 2025-02-03 08:31 | XMS_ITS | Encounter Summary ---
Author Organization [employer] Address [address] [place] [address] 7t [place] [address] Care Team Providers Care New Grad Rn Name Role Phone Name, Osbaldo RASCON Primary Care Provider [phone] Reason for Visit * Reason Comments Med Refill Encounter Details Date Type Department Care Team (Late st Contact Info) Description 10/06/2024 Refill [facility] 230 [place], [place] [phone] Name, MD Osbaldo 230 [place] [address] Chronic low back pain, unspecified back pain [...] Description 02/23/2025 9:00 AM EDT Clinical Support [address] [address] Juliana Pinedo RN 03/28/2025 10:00 AM EDT Office Visit [address] [address] Name, MD Osbaldo [address] [place] [address] documented as of this encounter Goals Goal [...] documented as of this encounter Care Teams New Grad Rn Relationship Specialty Start Date End Date Osbaldo Gentile MD [address] [place] [address] PCP - General Family Medicine 09/02/19 documented as of this encounter
--- OUTSIDE RECORDS SUMMARY | 2025-02-03 08:31 | XMS_ITS | Encounter Summary ---
Author Organization [employer] Address [address] [place] [address] 7t [place] [address] Care Team Providers Care Cotton Opener Name Role Phone Name, Osbaldo RASCON Primary Care Provider [phone] Reason for Visit * Reason Onset Date Comments Med Refill 03/29/2024 Encounter Details Date Type Department Care Team (Late st Contact Info) Description 03/29/[address] [facility] 230 [place], [place] [phone] Betsy Nino MD 230 [place], [place] [phone] Allergic rhinitis, unspecified seasonality, unspecified trigger Social [...] Description 02/23/2025 9:00 AM EDT Clinical Support [facility] [address] [place] [address] Juliana Pinedo RN 03/28/2025 10:00 AM EDT Office Visit [address] [address] NameOsbaldo MD [address] [place] [address] documented as of this encounter Goals Goal [...] documented as of this encounter Care Teams Cotton Opener Relationship Specialty Start Date End Date Osbaldo Gentile MD [address] [place] [address] PCP - General Family Medicine 09/02/19 documented as of this encounter
--- OUTSIDE RECORDS SUMMARY | 2025-02-03 08:31 | XMS_ITS | Encounter Summary ---
Author Organization [employer] Address [address] [place] [address] 7 [place] [address] Care Team Providers Care Pastry Supervisor Name Role Phone Name, Osbaldo RASCON Primary Care Provider [phone] Reason for Visit * Reason Onset Date Comments Med Refill 09/30/2024 Encounter Details Date Type Department Care Team ([facility] st Contact Info) Description 09/30/2024 Refill [facility] 230 [place], [place] [phone] Name, MD Osbaldo 230 [place] [address] Allergic rhinitis, unspecified seasonality, unspecified trigger; Chronic [...] 9:00 AM EDT Clinical Support [facility] [address] [place] [address] Juliana Pinedo RN 03/28/2025 10:00 AM EDT Office Visit [facility] [address] [place] [address] NameOsbaldo MD [address] [place] [address] documented as of this encounter Goals Goal [...] documented as of this encounter Care Teams Pastry Supervisor Relationship Specialty Start Date End Date Osbaldo Gentile MD [address] [place] [address] PCP - General Family Medicine 09/02/19 documented as of this encounter
--- OUTSIDE RECORDS SUMMARY | 2025-02-03 08:31 | XMS_ITS | Encounter Summary ---
Author Organization [employer] Address [address] [place] [address] 7t [place] [address] Care Team Providers Care Good Humor Vendor Name Role Phone Name, Osbaldo RASCON Primary Care Provider Reason for Visit * Reason Comments Med Refill Encounter Details Date Type Department Care Team (Late st Contact Info) Description 10/04/2024 Refill [facility] 230 [place], [place] [phone] Name, MD Osbaldo 230 [place] [address] Chronic low back pain, unspecified back pain [...] Description 02/23/2025 9:00 AM EDT Clinical Support [address] [address] Juliana Pinedo RN 03/28/2025 10:00 AM EDT Office Visit [address] [address] Name, MD Osbaldo [address] [place] [address] documented as of this encounter Goals Goal [...] documented as of this encounter Care Teams Good Humor Vendor Relationship Specialty Start Date End Date Osbaldo Gentile MD [address] [place] [address] PCP - General Family Medicine 09/02/19 documented as of this encounter
--- OUTSIDE RECORDS SUMMARY | 2025-02-03 08:31 | XMS_ITS | Encounter Summary ---
Author Organization [employer] Address [address] [place] [address] 7t [place] [address] Care Team Providers Care Straddle Carrier Operator Name Role Phone Name, Osbaldo RASCON Primary Care Provider Lilian Baugh PharmD Unavailable [phone] Reason for Visit * Reason Onset Date Comments Med Refill 01/29/2024 Encounter Details Date Type Department Care Team ([facility] st Contact Info) Description 01/29/2024 Refill [facility] MED & PEDS 505 [place], [place] [phone] Abril Brooks FNP 505 [place] [address] Social History Tobacco Use Types Packs/Day Years [...] Description 02/23/2025 9:00 AM EDT Clinical Support [facility]ICINE [address] [place] [address] Juliana Pinedo RN 03/28/2025 10:00 AM EDT Office Visit [facility] [address] [place] [address] Name, MD Osbaldo [address] [place] [address] documented as of this encounter Goals Goal [...] documented as of this encounter Care Teams Straddle Carrier Operator Relationship Specialty Start Date End Date Osbaldo Gentile MD [address] [place] [address] PCP - General Family Medicine 09/02/19 Lilian Baugh, PharmD [address] [place] [address] Pharmacist Internal Medicine 05/02/23 02/24/24 documented as of this encounter
--- OUTSIDE RECORDS SUMMARY | 2025-02-03 08:31 | XMS_ITS | Encounter Summary ---
Author Organization [employer] Address [address] [place] [address] 7t [place] [address] Care Team Providers Care Personal Finance Instructor Name Role Phone Name, Osbaldo RASCON Primary Care Provider [phone] Reason for Visit * Reason Onset Date Comments Med Refill 03/29/2024 Encounter Details Date Type Department Care Team (Late st Contact Info) Description 03/29/2024 Refill [facility] 230 [place], [place] [phone] Georgina Hirsch, ANP 230 [place], [place] [phone] Gastroesophageal reflux disease, unspecified whether esophagitis present [...] Description 02/23/2025 9:00 AM EDT Clinical Support [facility] MED[facility]INE [address] [place] [address] Juliana Pinedo RN 03/28/2025 10:00 AM EDT Office Visit [address] [address] NameOsbaldo MD [address] [place] [address] documented as of this encounter Goals Goal [...] documented as of this encounter Care Teams Personal Finance Instructor Relationship Specialty Start Date End Date Osbaldo Gentile MD [address] [place] [address] PCP - General Family Medicine 09/02/19 documented as of this encounter
--- OUTSIDE RECORDS SUMMARY | 2025-02-03 08:31 | XMS_ITS | Encounter Summary ---
Author Organization [employer] Address [address] [place] [address] 7t [place] [address] Care Team Providers Care Artist And Repertoire Manager Name Role Phone NameOsbaldo MD Primary Care Provider Lilian Baugh PharmD Unavailable [phone] Reason for Visit * Reason Comments Med Refill Encounter Details Date Type Department Care Team (Late st Contact Info) Description 09/06/2022 Refill [facility]INE [address] [place] [address] [phone] Osbaldo Gentile MD [address] [place] [address] Asthma, unspecified asthma severity, unspecified whether complicated, [...] Description 02/23/2025 9:00 AM EDT Clinical Support [facility] [address] [place] [address] [phone] Juliana Pinedo RN 03/28/2025 10:00 AM EDT Office Visit [facility] [address] [place] [address] [phone] Osbaldo Gentile MD [address] [place] [address] [phone] documented as of this encounter Visit Diagnoses Diagnosis Asthma, unspecified asthma severity, unspecified whether complicated, unspecified whether persistent- Primary Lumbago with sciatica, left side documented in this encounter Care Teams Artist And Repertoire Manager Relationship Specialty Start Date End Date Name, MD Osbaldo 230 [place], [place] [phone] PCP - General Family Medicine 09/02/19 Lilian Baugh, Anastasia 230 [place] [address] Pharmacist Internal Medicine 05/02/23 02/24/24 documented as of this encounter
--- OUTSIDE RECORDS SUMMARY | 2025-02-03 08:31 | XMS_ITS | Encounter Summary ---
Author Organization [employer] Address [address] [place] [address] 7t [place] [address] Care Team Providers Care Organic Gardening Teacher Name Role Phone Name, Osbaldo RASCON Primary Care Provider [phone] Lilian Baugh PharmD Unavailable Reason for Visit * Reason Onset Date Comments Med Refill 10/28/2023 Encounter Details Date Type Department Care Team (Late st Contact Info) Description 10/28/2023 Refill [facility] 230 [place], [place] [phone] Betsy Nino MD 230 [place], [place] [phone] Asthma, unspecified asthma severity, unspecified whether complicated, [...] is your housing situation today? I have christinarubén nunez 07/21/[address] you [...] Clinical Support [facility]INE [address] [place] [address] Juliana Pinedo RN 03/28/2025 10:00 AM EDT Office Visit [address] [address] NameOsbaldo MD [address] [place] [address] documented as of this encounter Goals Goal Patient Goal Type Associated Problems Recent Progress Patient-Stated? Author Record your blood pressure once per day Blood Pressure No Lilian Baugh, PharmD Blood Pressure < 140/90 Blood Pressure 134/84( 025 9:22 AM EST) No Kinjal Baughsa, PharmD documented as of this encounter Visit Diagnoses Diagnosis Asthma, unspecified asthma severity, unspecified whether complicated, unspecified whether persistent Essential (primary) hypertension Unspecified essential hypertension documented in this encounter Additional Health Concerns Assessment Noted Time PHQ-9 Depression Total Score: 8 01/21/20 23 3:35 PM EDT documented as of this encounter Care Teams Organic Gardening Teacher Relationship Specialty Start Date End Date Osbaldo Gentile MD [address] [place] [address] PCP - General Family Medicine 09/02/19 Lilian Baugh, PharmD 230 [place] [address] Pharmacist Internal Medicine 05/02/23 02/24/24 documented as of this encounter
--- OUTSIDE RECORDS SUMMARY | 2025-02-03 08:31 | XMS_ITS | Encounter Summary ---
Author Organization [employer] Address [address] [place] [address] 7t [place] [address] Care Team Providers Care High School Home Economics Teacher Name Role Phone Name, Osbaldo RASCON Primary Care Provider [phone] Lilian Baugh PharmD Unavailable [phone] Reason for Visit * Reason Onset Date Comments Med Refill 10/28/2023 Encounter Details Date Type Department Care Team (Late st Contact Info) Description 10/28/2023 Refill [facility]INE 230 [place], [place] [phone] Darcie Cunha MD 230 [place], [place] [phone] Chronic low back pain, unspecified back pain [...] Clinical Support [facility]INE [address] [place] [address] Juliana Pinedo RN 03/28/2025 10:00 AM EDT Office Visit [address] [address] NameOsbaldo MD [address] [place] [address] documented as of this encounter Goals Goal [...] documented as of this encounter Care Teams [employer] Home Economics Teacher Relationship Specialty Start Date End Date Osbaldo Gentile MD [address] [place] [address] PCP - General Family Medicine 09/02/19 Lilian Baugh PharmD [address] [place] [address] Pharmacist Internal Medicine 05/02/23 02/24/24 documented as of this encounter
--- OUTSIDE RECORDS SUMMARY | 2025-02-03 08:31 | XMS_ITS | Encounter Summary ---
Author Organization [employer] Address [address] [place] [address] 7t [place] [address] Care Team Providers Care Health Science Specialist Name Role Phone Name, Osbaldo RASCON Primary Care Provider [phone] Reason for Visit * Reason Onset Date Comments Med Refill 12/27/2024 Encounter Details Date Type Department Care Team (Late st Contact Info) Description 12/27/2024 Refill [facility]S [address] [place], [place] [phone] Name, MD Osbaldo 230 [place] [address] Chronic low back pain, unspecified back pain [...] Description 02/23/2025 9:00 AM EDT Clinical Support [address] [address] Juliana Pinedo RN 03/28/2025 10:00 AM EDT Office Visit [address] [address] Name, MD Osbaldo [address] [place] [address] documented as of this encounter Goals Goal [...] documented as of this encounter Care Teams Health Science Specialist Relationship Specialty Start Date End Date NameOsbaldo MD [address] [place] [address] PCP - General Family Medicine 09/02/19 documented as of this encounter
--- OUTSIDE RECORDS SUMMARY | 2025-02-03 08:31 | XMS_ITS | Clinical Summary ---
Author Organization [facility] Address [address] [place] [address] Care Team Providers Care Sumo Wrestler Name Role Phone Ariana Haro MD Primary Care Provider Social History Tobacco Use Types Packs/Day Years Used Date Smoking Tobacco: Never Assessed Sex and Gender Information Value Date Recorded Sex Assigned at Not on file Legal Sex Male 4:35 AM EST Gender Identity Not on file Sexual Orientation Not on file Plan of Treatment Health Maintenance Due Date Last Done Comments Hepatitis B Vaccines (1 of 3 - 19+ 3-dose series) 1990 Pneumococcal Vaccine: 50+ Ye ars (1 of 1 - PCV) 2021 Zoster Vaccines (1 of 2) 2021 COVID-19 Vaccine ( - 2023-2 5 season) 2024 Influenza Vaccine (Season Ended) 2025 09/13/20 15 DTaP,Tdap,and Td Vaccines (2 - Td or [...] patient's age to complete this topic Meningococcal B Vaccine Aged Out No l onger eligible based on patient's age to complete [...] age to complete this topic Care Teams Sumo Wrestler Relationship Specialty Start Date End Date Ariana Haro MD [address] [place] [address] PCP - General 08/15/17
--- OUTSIDE RECORDS SUMMARY | 2025-02-03 08:31 | XMS_ITS | Encounter Summary ---
Author Organization [employer] Address [address] [place] [address] 7t [place] [address] Care Team Providers Care Signals Analyst Name Role Phone Name, Osbaldo RASCON Primary Care Provider [phone] Reason for Visit * Reason Onset Date Comments Med Refill 03/29/2024 Encounter Details Date Type Department Care Team (Late st Contact Info) Description 03/29/2024 Refill [facility]INE 230 [place], [place] [phone] Name, MD Osbaldo 230 [place], [place] [phone] Chronic low back pain, unspecified back pain [...] Description 02/23/2025 9:00 AM EDT Clinical Support [facility] MEDICINE [address] [place] [address] Juliana Pinedo RN 03/28/2025 10:00 AM EDT Office Visit [facility] MEDICINE [address] [place] [address] Name, MD Osbaldo [address] [place] [address] documented as of this encounter Goals Goal Patient Goal Type Associated Problems Recent Progress Patient-Stated? Author Record your blood pressure once per day Blood Pressure No PuLilian ramirez, PharmD Blood Pressure < 140/90 Blood Pressure 134/84( 025 9:22 AM EST) No PuMichael ramirezyssa, PharmD documented as of this encounter Visit Diagnoses Diagnosis Chronic low back pain, unspecified back pain laterality, unspecified whether sciatica present documented in this encounter Additional Health Concerns Assessment Noted Time PHQ-9 Depression Total Score: 0 02/09/20 24 3:17 PM EDT documented as of this encounter Care Teams Signals Analyst Relationship Specialty Start Date End Date Name, MD Osbaldo 230 [place] [address] PCP - General Family Medicine 09/02/19 documented as of this encounter
--- OUTSIDE RECORDS SUMMARY | 2025-02-03 08:31 | XMS_ITS | Encounter Summary ---
Author Organization [employer] Address [address] [place] [address] 7t [place] [address] Care Team Providers Care Pneumatic Press Hand Name Role Phone Name, Osbaldo RASCON Primary Care Provider [phone] Lilian Baugh PharmD Unavailable [phone] Reason for Visit * Reason Onset Date Comments notes 02/11/2024 Encounter Details Date Type Department Care Team ([facility] st Contact Info) Description 02/11/2024 Telephone [facility] 230 [place], [place] [phone] Name, MD Osbaldo 230 [place] [address] notes Social History Tobacco Use Types Packs/Day [...] Jacqui a v/m there's no notes from [facility]. * Telephone Encounter - Yvan Desai RN - 02/11/2024 4:55 PM EDT Please review and advise for below request. * Telephone Encounter - Marija Cheek - 02/11/2024 2:26 PM EDT Tc from Jacqui with [facility] pain management requesting supporting documents for referral. Requesting MRI results, [facility] pain management notes, and Neurosurgeon [facility] notes. Please fax to [phone] Any questions, contact Jacqui at [phone] documented in this encounter Plan of Treatment Upcoming Encounters Date Type Department Care Team (Late st Contact Info) Description 02/23/2025 9:00 AM EDT Clinical Support [facility] [address] [place] [address] Juliana Pinedo, TOÑO 03/28/2025 10:00 AM EDT Office Visit [facility] [address] [facility] [place] [address] Name, MD Osbaldo 230 [place] [address] documented as of this encounter Goals Goal [...] documented as of this encounter Care Teams Pneumatic Press Hand Relationship Specialty Start Date End Date Name, [place] [address] PCP - General Family Medicine 09/02/19 Lilian Baugh, [place] [address] Pharmacist Internal Medicine 05/02/23 02/24/24 documented as of this encounter
--- OUTSIDE RECORDS SUMMARY | 2025-02-03 08:31 | XMS_ITS | Clinical Summary ---
Author Organization [employer] Address [address] [place] [address] 7[address] [place] [address] Care Team Providers Care Motor Inspection Mechanic Name Role Phone Name, Osbaldo RASCON Primary Care Provider [phone] Allergies No known active allergies Medications Proventil HFA 108 (90 Base) MCG/ACT inhalerIndicat ions:Asthma, unspecified asthma severity, unspecified whether complicated, [...] at bedtime. Active gabapentin (Neurontin) 300 MG capsuleIndicat ions:Chronic low back pain, unspecified back pain laterality, unspecified whether sciatica present Take 2 capsules (600 mg) by mouth 3 times daily. 180 capsule 09/25/20 23 Active fluticasone (Flonase) 50 MCG/ACT nasal sprayIndicatio ns:Allergic rhinitis, unspecified seasonality, unspecified trigger INSTILL 2 SPRAYS IN EACH NOSTRIL ONCE DAILY 48 g 1 03/03/20 24 Active amLODIPine-ailyn sartan (Exforge) 5-160 MG tablet Take 1 tablet by mouth Once per day. 30 tablet 11 04/13/20 24 025 Active montelukast (Singulair) 10 MG tabletIndicati ons:Moderate asthma with status asthmaticus, unspecified whether persistent TAKE 1 TABLET BY MOUTH EVERY DAY 90 tablet 3 04/30/20 24 Active cetirizine (ZyrTEC) 10 MG tabletIndicati ons:Allergic rhinitis, unspecified seasonality, unspecified trigger TAKE 1 TABLET BY MOUTH EVERY DAY 90 tablet 1 08/30/20 24 Active albuterol (Ventolin HFA) 108 (90 Base) MCG/ACT inhaler INHALE 2 PUFFS BY MOUTH EVERY 4 TO 6 HOURS NEEDED 18 g 2 10/19/19 25 Active fluticasone-sa lmeterol (Advair HFA) 115-21 MCG/ACT inhalerIndicat ions:Moderate persistent asthma, unspecified whether complicated INHALE 2 PUFFS BY MOUTH TWICE DAILY RINSE MOUTH AFTER USING. 12 g 2 10/19/19 25 Active tamsulosin (Flomax) 0.4 MG 24 hr capsule TAKE 2 CAPSULES BY MOUTH EVERY DAY 180 capsule 1 10/25/19 25 Active cholecalcifero l (D3 Super Strength) 50 MCG (2000 UT) capsule TAKE 1 CAPSULE BY MOUTH EVERY DAY IN THE MORNING 90 capsule 11/30/19 25 Active fluticasone (Cutivate) 0.05 % cream APPLY TOPICALLY TWICE A DAY 60 g 2 12/04/19 25 Active sildenafil (Viagra) 100 MG tablet Take 1 tablet (100 mg) by mouth if needed each day for erectile dysfunction. 10 tablet 12/16/19 25 Active naloxone (Narcan) 4 mg/0.1 mL nasal sprayIndicatio ns:Chronic low back pain, unspecified back pain laterality, unspecified whether sciatica present ADMINISTER 1 SPRAY INTO AFFECTED NOSTRIL(S) IF NEEDED FOR OPIOID REVERSAL. MAY REPEAT EVERY 2 TO 3 MINUTES IF NEEDED ALTERNATING NOSTRILS, UNTIL MEDICAL ASSISTANCE BECOMES AVAILABLE. 2 each 3 12/28/19 25 Active omeprazole (PriLOSEC) [address] capsuleIndicat ions:Gastroeso phageal reflux disease, unspecified whether esophagitis present TAKE 1 CAPSULE BY MOUTH EVERY DAY 30-60 MINUTES BEFORE A MEAL. DO NOT BREAK, CRUSH, DISSOLVE OR CHEW. 90 capsule 1 12/28/19 25 Active atorvastatin (Lipitor) 20 MG tablet TAKE 1 TABLET BY MOUTH EVERY DAY 90 tablet 2 01/27/20 25 Active gabapentin (Neurontin) 300 MG capsule TAKE 2 CAPSULES BY MOUTH THREE TIMES DAILY 180 capsule 01/27/20 25 Active albuterol (2.5 MG/3ML) 0.083% nebulizer solutionIndica tions:Moderate persistent asthma, unspecified whether complicated INHALE 1 AMPULE USING A NEBULIZER THREE TIMES DAILY 270 mL 01/28/20 25 Active oxyCODONE-acet aminophen (Percocet) 10-325 MG tabletIndicati ons:Chronic low back pain, unspecified back pain laterality, unspecified whether sciatica present Take 1 tablet by mouth every 8 (eight) hours if needed for severe pain. Do not start before January 28, 2025. 84 tablet 01/29/20 25 Active tadalafil (Cialis) 20 MG tablet TAKE 1 TABLET 1 HOUR BEFORE SEXUAL RELATIONS ONCE DAILY NEEDED. 10 tablet 02/02/20 25 Active atorvastatin (Lipitor) 20 MG tablet TAKE 1 TABLET BY MOUTH EVERY DAY 90 tablet 2 01/22/20 24 025 Discontinued albuterol (2.5 MG/3ML) 0.083% nebulizer solutionIndica tions:Moderate persistent asthma, unspecified whether complicated INHALE 1 AMPULE USING A NEBULIZER THREE TIMES DAILY 270 mL 10/19/19 25 025 Discontinued(R eorder (will not trigger notification to Pharmacy)) gabapentin (Neurontin) 300 MG capsule TAKE 2 CAPSULES BY MOUTH THREE TIMES DAILY 180 capsule 11/30/19 25 025 Discontinued(R eorder (will not trigger notification to Pharmacy)) tadalafil (Cialis) 20 MG tablet TAKE 1 TABLET 1 HOUR BEFORE SEXUAL RELATIONS ONCE DAILY NEEDED. 10 tablet 12/28/19 25 025 Discontinued(R eorder (will not trigger notification to Pharmacy)) oxyCODONE-acet aminophen (Percocet) 10-325 MG tabletIndicati ons:Chronic low back pain, unspecified back pain laterality, unspecified whether sciatica present TAKE 1 TABLET BY MOUTH EVERY 8 HOURS NEEDED FOR SEVERE PAIN 84 tablet 12/31/19 25 025 Discontinued(R eorder (will not trigger notification to Pharmacy)) Active Problems Problem Noted Date Diagnosed Date High cholesterol 07/22/2023 BPH associated with nocturia 03/26/2023 Seasonal allergic reaction 01/20/2023 Moderate asthma 01/20/2023 Chronic low back pain 07/17/2018 Anxiety 07/17/2018 Essential hypertension 02/21/2017 Encounters Date Type Department Care Team Description 01/31/2025 Refill [facility] [address] [place] [address] Osbaldo Gentile MD 01/27/2025 Refill [facility] [address] [place] [address] Osbaldo Gentile MD Allergic rhinitis, unspecified seasonality, unspecified trigger; Moderate persistent asthma, unspecified whether complicated; Chronic low back pain, unspecified back pain laterality, unspecified whether sciatica present; Gastroesophageal reflux disease, unspecified whether esophagitis present 01/27/2025 Refill [facility] [address] [place] [address] Darcie Cunha MD Chronic low back pain, unspecified back pain laterality, unspecified whether sciatica present 01/25/2025 Refill [facility] [address] [place] [address] Osbaldo Gentile MD 01/10/2025 Refill [facility] [address] [place] [address] Osbaldo Gentile MD 12/30/2024 Refill [facility] [address] [place] [address] Osbaldo Gentile MD Chronic low back pain, unspecified back pain laterality, unspecified whether sciatica present 12/27/2024 Refill [facility] [address] [place] [address] Osbaldo Gentile MD Chronic low back pain, unspecified back pain laterality, unspecified whether sciatica present 12/27/2024 Refill [facility] [address] [place] [address] Georgina Hirsch ANP Gastroesophageal reflux disease, unspecified whether esophagitis present 12/27/2024 Refill [facility] [address] [place] [address] Osbaldo Gentile MD Chronic low back pain, unspecified back pain laterality, unspecified whether sciatica present 12/27/2024 Refill [facility] [address] [place] [address] Osbaldo Gentile MD Chronic low back pain, unspecified back pain laterality, unspecified whether sciatica present; Moderate asthma with status asthmaticus, unspecified whether persistent; Allergic rhinitis, unspecified seasonality, unspecified trigger; Gastroesophageal reflux disease, unspecified whether esophagitis present 12/22/2024 Telephone [facility] [address] [place] [address] Osbaldo Gentile MD 12/15/2024 Refill [facility] [address] [place] [address] Sharmaine Lim ITZ 12/14/2024 Refill [facility] [address] [place] [address] Osbaldo Gentile MD 12/03/2024 Refill [facility] [address] [place], [place] [phone] NameOsbaldo MD Chronic low back pain, unspecified back pain laterality, unspecified whether sciatica present 12/03/2024 Refill [facility] [address] [place] [address] NameOsbaldo MD 11/29/2024 Refill [facility] [address] [place], [place] [phone] Osbaldo Gentile MD 11/29/2024 Refill [facility] [address] [place], [place] [phone] NameOsbaldo MD Chronic low back pain, unspecified back pain laterality, unspecified whether sciatica present 11/22/2024 Refill [facility] [address] [place] [address] NameOsbaldo MD from Last 3 Months Immunizations Name Administration [...] Description 02/23/2025 9:00 AM EDT Clinical Support [address] [address] Juliana Pinedo RN 03/28/2025 10:00 AM EDT Office Visit [facility] [address] [place] [address] Name, MD Osbaldo [address] [place] [address] Health Maintenance Due Date Last Done Comments CT Colonography 1971 Colonoscopy 1971 Colorectal Cancer Screening 1971 FIT DNA/Cologuard 1971 FIT 1971 FOBT 1970 Sigmoidoscopy 1971 Hepatitis B Vaccines (1 of 3 - 19+ 3-dose series) 1990 COVID-19 Vaccine ( season) 2024 08/27/2021, 11/22/2020, 11/01/2020 Depression Screening 02/08/2025 02/09/2024, [...] 9:22 AM EST) No Lilian Baugh PharmD Procedures Procedure Name Priority Date/Time Associated Diagnosis Comments XR SACROILIAC JOINTS 3+ VIEWS Routine 11/09/2024 7:15 AM EST XR LUMBAR SPINE COMPLETE 4+ VIEWS Routine 11/09/2024 7:01 AM EST HEPATITIS C ANTIBODY Routine 07/22/2023 10:32 AM EDT Need for hepatitis C screening test HIV ANTIBODY/ANTIGEN ([place] [facility]) Routine 07/22/2023 10:32 AM EDT LIPID PANEL, STANDARD Routine 07/22/2023 10:32 AM EDT High cholesterol from Last 3 Months or Most Recently Relevant to Health Maintenance Results * XR Sacroiliac Joints 3+ Views (11/09/2024 7:15 AM EST) Anatomical Region Laterality Modality Sacroiliac joint, Pelvis Radiogr aphic Imaging 11/09/2024 7:15 AM EST Narrative 11/09/2024 7:16 AM EST ? [place] [facility] ?[address] ?[place] [address] ?XRay Report ? Signed ? Patient: Bess,Jouhan ?MR#: [id number] ?? 1 ? : 1970 ?Acct:[id number] ? Age/Sex: 54 / M ?ADM Date: 11/05/24 ? Loc: HO.XRAY ? Attending Dr: Marya MUÑOZ ? Ordering Physician: Marya Moore ?? Date of Service: 11/05/24 ?? Procedure(s): XR sacroiliac joint min 3V ?? Accession Number(s): [id number] ? cc: Marya Moore; Name,Osbaldo RASCON ? CLINICAL HISTORY: M47.817 - Spondylosis without myelopathy or radiculopathy, lumbosacral r... ? 3 views sacroiliac joints ? Comparison: None ? Findings ?? No acute fractures. ?? No significant degenerative change. No erosions. ? IMPRESSION: ?? No acute findings ? This document has been electronically signed by: Arpit Moyer MD on ?? 11/09/2024 07:15:07 ? Dictated By: ?Arpit Moyer MD ? Signed By: ?<Electronically signed by Arpit Moyer MD in OV> ? 11/09/24 0716 ? DD/ 4 ? TD/TT: 11/09/24714 ? Coding Team Lead: ? Procedure Note Alejo, Kenneth - 11/09/2024 [place] [address] XRay Report Signed Patient: Hank BessMR#: [id number] 1 : 1970Acct:[id number] Age/Sex: 54 / MADM Date: 11/05/24 Loc: [facility] Attending Dr: Marya MUÑOZ Ordering Physician: Marya Moore Date of Service: 11/05/24 Procedure(s): XR sacroiliac joint min 3V Accession Number(s): [id number] cc: Marya Moore; Name,Osbaldo RASCON CLINICAL HISTORY: M47.817 - Spondylosis without myelopathy orradiculopathy, lumbosacral r... 3 views sacroiliac joints Comparison: None Findings No acute fractures. No significant degenerative change. No erosions. IMPRESSION: No acute findings This document has been electronically signed by: Arpit Moyer MD on 11/09/2024 07:15:07 Dictated By: Arpit Moyer MD Signed By: <Electronically signed by Arpit Moyer MD in OV> 11/09/24 0716 DD/ 4 TD/TT: 11/09/24714 Coding Team Lead: [facility] External Provider IMG XR PROCEDURES Final Result * XR Lumbar Spine Complete 4+ Views (11/09/2024 7:01 AM EST) Anatomical Region Laterality Modality Spine, L-spine Radiographic Christelle ging 11/09/2024 7:01 AM EST Narrative 11/09/2024 7:02 AM EST ? [facility] ?[address] ?[place] [address] ?XRay Report ? Signed ? Patient: Bess,Hank ?MR#: [id number] ?? 1 ? : 1970 ?Acct:[id number] ? Age/Sex: 54 / M ?ADM Date: 11/05/24 ? Loc: HO.XRAY ? Attending Dr: Marya MUÑOZ ? Ordering Physician: Marya Moore ?? Date of Service: 11/05/24 ?? Procedure(s): XR lumbar spine 4V min ?? Accession Number(s): [id number] ? cc: Marya Moore; Name,Osbaldo RASCON ? CLINICAL HISTORY: M47.817 - Spondylosis without myelopathy or radiculopathy, lumbosacral r... ? 5 views lumbar spine ? Comparison: None ? Findings: ?? Normal vertebral body alignment. ?? No acute fractures or dislocation. ?? No significant degenerative change. ? IMPRESSION: ?? No acute findings. ? This document has been electronically signed by: Arpit Moyer MD on ?? 11/09/2024 07:01:24 ? Dictated By: ?Arpit Moyer MD ? Signed By: ?<Electronically signed by Arpit Moyer MD in OV> ? 11/09/24 0702 ? DD/ 0701 ? TD/TT: 11/09/24 0701 ? Coding Team Lead: ? Procedure Note Alejo Image - 11/09/[address] [address] XRay Report Signed Patient: Hank BessMR#: [id number] 1 : 1970Acct:[id number] Age/Sex: 54 / MADM Date: 11/05/24 Loc: [facility] Attending Dr: Marya MUÑOZ Ordering Physician: Marya Moore Date of Service: 11/05/24 Procedure(s): XR lumbar spine 4V min Accession Number(s): [id number] cc: Marya Moore; Name,Osbaldo RASCON CLINICAL HISTORY: M47.817 - Spondylosis without myelopathy orradiculopathy, lumbosacral r... 5 views lumbar spine Comparison: None Findings: Normal vertebral body alignment. No acute fractures or dislocation. No significant degenerative change. IMPRESSION: No acute findings. This document has been electronically signed by: Arpit Moyer MD on 11/09/2024 07:01:24 Dictated By: Arpit Moyer MD Signed By: <Electronically signed by Arpit Moyer MD in OV> 11/09/24701 DD/ 0 TD/TT: 11/09/24700 Coding Team Lead: [facility] External Provider IMG XR PROCEDURES Final Result * Hepatitis C Ab (07/22/2023 10:32 AM EDT) Hepatitis C Antibody Nonreactive Nonreactive [facility] Comment:Antibodies to HCV no t detected; does not exclude early acuteHCV infection. Blood Venous blood specimen / Unknown 07/22/2023 10:32 AM EDT 07/22/2023 11:23 AM EDT Osbaldo Gentile MD LAB BLOOD ORDERABLES Final Resul t [facility] [address] [place] [address] [phone] * HIV Ab/Ag (UT DP) (07/22/2023 10:32 AM EDT) HIV AB/AG Nonreactive Nonreactive [facility] Comment:HIV-1 p24 Ag and/or HIV-1/HIV-2 Ab not detected.A test result that is nonreactive does not exclude thepossibility of exposure to or infection with HIV-1 and/orHIV-2. Nonreactive results in this assay for individualswith prior exposure to HIV-1 and/or HIV-2 may be due toantigen and antibody levels that are below the limit ofdetection of this assay.The [employer] HIV Ag/Ab Combo assay result andsupplemental assay results should be interpreted inconjunction with the patient's clinical presentation,history and other laboratory results. If the results areinconsistent with clinical evidence, additional testing issuggested to confirm the result. 07/22/2023 10:3 2 AM EDT 07/22/2023 11:23 AM EDT us Osbaldo Name MD LAB BLOOD ORDERABLES Final Resul t [facility] [address] [place] [phone] * (ABNORMAL) Lipid Panel, Standard (07/22/2023 10:32 AM EDT) Triglycerides 119 <150 mg/dL [facility] Comment:Desirable Triglyceri de: less than 150 mg/dLBorderline High Triglyceride 150-199 mg/dLHigh Triglyceride: 200-499 mg/dLVery High Triglyceride: greater than or equal to 5OO mg/dL Cholesterol 203(H) <200 mg/dL [facility] Comment:Desirable Cholestero l: less than 200 mg/dLBorderline High Cholesterol: 200-239 mg/dLHigh Cholesterol: greater than 239 mg/dL LDL Cholesterol Calculated 129(H) <100 mg/dL [facility] Comment:Desirable LDL: less than 100 mg/dLNear Optimal/Above Optimal LDL: 110- 129 mg/dLBorderline High LDL: 130-159 mg/dLHigh LDL: 160-189 mg/dLVery High LDL: greater than or equal to 190 mg/dL HDL Cholesterol 51 >40 mg/dL [facility] Comment:Desirable HDL: great er than 40 mg/dL Note: This HDL assay may give artificially low results in patients with liver disease. Blood Venous blood specimen / Unknown 07/22/2023 10:32 AM EDT 07/22/2023 11:23 AM EDT us Osbaldo Name LAB BLOOD ORDERABLES Final Resul t [facility] [address] [place] [address] [phone] from Last 3 Months or Most Recently Relevant to Health Maintenance Insurance [facility] CHOICE Care Teams Motor Inspection Mechanic Relationship Specialty Start Date End Date Name, MD Osbaldo [address] [place] [address] PCP - General Family Medicine 09/02/19
--- OUTSIDE RECORDS SUMMARY | 2025-02-03 08:31 | XMS_ITS | Encounter Summary ---
Author Organization [employer] Address [address] [place] [address] 7t [place] [address] Care Team Providers Care Industrial Security Analyst Name Role Phone Name, Osbaldo RASCON Primary Care Provider [phone] Lilian Baugh PharmD Unavailable [phone] Encounter Details Date Type Department Care Team (Late st Contact Info) Description 10/02/2022 Orders Only [facility] [address] [place], [place] [phone] Shruti Harrington LPN Social History Tobacco Use [...] Support [facility] [address] [place] [address] Juliana Pinedo RN 03/28/2025 10:00 AM EDT Office Visit [facility] [address] [place] [address] [phone] Osbaldo Gentile MD [address] [place] [address] documented as of this encounter Visit Diagnoses Not on filedocumented in this encounter Care Teams Industrial Security Analyst Relationship Specialty Start Date End Date Osbaldo Gentile MD [address] [place] [address] PCP - General Family Medicine 09/02/19 Lilian Baugh PharmD [address] [place] [address] Pharmacist Internal Medicine 05/02/23 02/24/24 documented as of this encounter
--- OUTSIDE RECORDS SUMMARY | 2025-02-03 08:31 | XMS_ITS | Encounter Summary ---
Author Organization [employer] Address [address] [place] [address] 7t [place] [address] Care Team Providers Care Carton Forming Machine Tender Name Role Phone Name, Osbaldo RASCON Primary Care Provider [phone] Lilian Baugh PharmD Unavailable [phone] Reason for Visit * Reason Comments Med Refill Encounter Details Date Type Department Care Team ([facility] st Contact Info) Description 10/16/2023 Refill [facility] [address] [place], [place] [phone] Lb Noriega MD [address] [place], [place] [phone] Social History Tobacco Use Types Packs/Day Years [...] Description 02/23/2025 9:00 AM EDT Clinical Support [facility] [address] [place] [address] Juliana Pinedo RN 03/28/2025 10:00 AM EDT Office Visit [address] [address] Name, MD Osbaldo [address] [place] [address] documented as of this encounter Goals Goal [...] documented as of this encounter Care Teams Carton Forming Machine Tender Relationship Specialty Start Date End Date Name, MD Osbaldo [address] [place] [address] PCP - General Family Medicine 09/02/19 Kinjal Baughsa, PharmD [address] [place] [address] Pharmacist Internal Medicine 05/02/23 02/24/24 documented as of this encounter
--- OUTSIDE RECORDS SUMMARY | 2025-02-03 08:31 | XMS_ITS | Encounter Summary ---
Author Organization [employer] Address [address] [place] [address] 7t [place] [address] Care Team Providers Care Gluten Settling Tender Name Role Phone Name, Osbaldo RASCON Primary Care Provider [phone] Reason for Visit * Reason Onset Date Comments Med Refill 10/07/2024 Encounter Details Date Type Department Care Team (Late st Contact Info) Description 10/07/2024 Refill [facility] [address] [place], [place] [phone] Name, MD Osbaldo [address] [place], [place] [phone] Chronic low back pain, unspecified back pain [...] 02/23/2025 9:00 AM EDT Clinical Support [address] [address] Juliana Pinedo RN 03/28/2025 10:00 AM EDT Office Visit [address] [address] Name, MD Osbaldo [address] [place] [address] documented as of this encounter Goals Goal [...] documented as of this encounter Care Teams Gluten Settling Tender Relationship Specialty Start Date End Date NameOsbaldo MD [address] [place] [address] PCP - General Family Medicine 09/02/19 documented as of this encounter
--- OUTSIDE RECORDS SUMMARY | 2025-02-03 08:32 | XMS_ITS | Encounter Summary ---
Author Organization [employer] Address [address] [place] [address] 7[address] [place] [address] Care Team Providers Care Shoes Salesperson Name Role Phone Name, Osbaldo RASCON Primary Care Provider [phone] Reason for Visit * Reason Onset Date Comments Med Refill 07/22/2024 Encounter Details Date Type Department Care Team (Late st Contact Info) Description 07/22/2024 Refill [facility] [address] [place], [place] [phone] Georgina Hirsch, ANP [address] [place] [address] Gastroesophageal reflux disease, unspecified whether esophagitis present [...] Description 02/23/2025 9:00 AM EDT Clinical Support [facility] [address] [place] [phone] Juliana Pinedo RN 03/28/2025 10:00 AM EDT Office Visit [address] [address] NameOsbaldo MD [address] [place] [address] documented as of this encounter Goals Goal [...] documented as of this encounter Care Teams Shoes Salesperson Relationship Specialty Start Date End Date Osbaldo Gentile MD [address] [place] [address] PCP - General Family Medicine 09/02/19 documented as of this encounter
--- OUTSIDE RECORDS SUMMARY | 2025-02-03 08:32 | XMS_ITS | Encounter Summary ---
Author Organization [employer] Address [address] [place] [address] 7t [place] [address] Care Team Providers Care Entry Level Sales Consultant Name Role Phone Name, Osbaldo RASCON Primary Care Provider [phone] Reason for Visit * Reason Onset Date Comments Med Refill 04/22/2024 Encounter Details Date Type Department Care Team ([facility] st Contact Info) Description 04/22/2024 Refill [facility] [address] [place], [place] [phone] Name, MD Osbaldo [address] [place] [address] Essential (primary) hypertension Social History Tobacco Use [...] Description 02/23/2025 9:00 AM EDT Clinical Support [address] [address] Juliana Pinedo RN 03/28/2025 10:00 AM EDT Office Visit [address] [address] Osbaldo Gentile MD [address] [place] [address] documented as of this encounter Goals Goal [...] as of this encounter Care Teams Entry Level Sales Consultant Relationship Specialty Start Date End Date Osbaldo Gentile MD [address] [place] [address] PCP - General Family Medicine 09/02/19 documented as of this encounter
--- OUTSIDE RECORDS SUMMARY | 2025-02-03 08:32 | XMS_ITS | Encounter Summary ---
Author Organization [employer] Address [address] [place] [address] 7t [place] [address] Care Team Providers Care Abrasive Mixer Name Role Phone Name, Osbaldo RASCON Primary Care Provider [phone] Lilian Baugh PharmD Unavailable [phone] Encounter Details Date Type Department Care Team (Late st Contact Info) Description 12/30/2022 Orders Only [address] [phone] Marya [place]on LPN Social History Tobacco Use [...] Description 02/23/2025 9:00 AM EDT Clinical Support [address] [phone] Juliana Pinedo RN 03/28/2025 10:00 AM EDT Office Visit [address] [phone] Name, MD Osbaldo [address] [place] [address] documented as of this encounter Visit Diagnoses Not on filedocumented in this encounter Care Teams Abrasive Mixer Relationship Specialty Start Date End Date Name, MD Osbaldo 230 [place] [address] PCP - General Family Medicine 09/02/19 Lilian Baugh PharmD 230 [place] [address] Pharmacist Internal Medicine 05/02/23 02/24/24 documented as of this encounter
--- OUTSIDE RECORDS SUMMARY | 2025-02-03 08:32 | XMS_ITS | Encounter Summary ---
Author Organization [employer] Address [address] [place] [address] 7t [place] [address] Care Team Providers Care House Furnishings Supervisor Name Role Phone Name, Osbaldo RASCON Primary Care Provider [phone] Lilian Baugh PharmD Unavailable [phone] Reason for Visit * Reason Onset Date Comments Appointment Request 01/02/2023 Encounter Details Date Type Department Care Team ([facility] st Contact Info) Description 01/02/2023 Telephone [facility] 230 [place], [place] [phone] Name, MD Osbaldo 230 [place] [address] Appointment Request Social History Tobacco Use Types [...] pt requesting a office visit with PCP. Chemical Strength Tester attempted to book appt but no available appt. Please contact pt at [phone] documented in this encounter Plan of Treatment Upcoming Encounters Date Type Department Care Team (Late st Contact Info) Description 02/23/2025 9:00 AM EDT Clinical Support [address] [address] Juliana Pinedo, RN 03/28/2025 10:00 AM EDT Office Visit [address] [address] Name, MD Osbaldo [address] [place] [address] documented as of this encounter Visit Diagnoses Not on filedocumented in this encounter Care Teams House Furnishings Supervisor Relationship Specialty Start Date End Date Name, MD Osbaldo [address] [place] [address] PCP - General Family Medicine 09/02/19 Lilian Baugh PharmD [address] [place] [address] Pharmacist Internal Medicine 05/02/23 02/24/24 documented as of this encounter
--- OUTSIDE RECORDS SUMMARY | 2025-02-03 08:32 | XMS_ITS | Encounter Summary ---
Author Organization [employer] Address [address] [place] [address] 7t [place] [address] Care Team Providers Care Fish Farmer Name Role Phone Name, Osbaldo RASCON Primary Care Provider Reason for Visit * Reason Onset Date Comments Med Refill 06/28/2024 Encounter Details Date Type Department Care Team (Late st Contact Info) Description 06/28/2024 Refill [facility] 230 [place], [place] [phone] Name, MD Osbaldo 230 [place], [place] [phone] Moderate asthma with status asthmaticus, unspecified whether [...] Description 02/23/2025 9:00 AM EDT Clinical Support [address] [address] Juliana Pinedo RN 03/28/2025 10:00 AM EDT Office Visit [facility] [address] [place] [address] Name, MD Osbaldo [address] [place] [address] documented as of this encounter Goals Goal [...] documented as of this encounter Care Teams Fish Farmer Relationship Specialty Start Date End Date Osbaldo Gentile MD [address] [place] [address] PCP - General Family Medicine 09/02/19 documented as of this encounter
--- OUTSIDE RECORDS SUMMARY | 2025-02-03 08:32 | XMS_ITS | Encounter Summary ---
Author Organization [employer] Address [address] [place] [address] 7t [place] [address] Care Team Providers Care Environmental Sustainability Manager Name Role Phone Name, Osbaldo RASCON Primary Care Provider [phone] Lilian Baugh PharmD Unavailable Reason for Visit * Reason Onset Date Comments Med Refill 01/29/2024 Encounter Details Date Type Department Care Team (Late st Contact Info) Description 01/29/2024 Refill [facility] 230 [place], [place] [phone] Betsy Nino MD 230 [place], [place] [phone] Asthma, unspecified asthma severity, unspecified whether complicated, [...] Description 02/23/2025 9:00 AM EDT Clinical Support [address] [address] Juliana Pinedo RN 03/28/2025 10:00 AM EDT Office Visit [address] [address] NameOsbaldo MD [address] [place] [address] documented as of this encounter Goals Goal Patient Goal Type Associated Problems Recent Progress Patient-Stated? Author Record your blood pressure once per day Blood Pressure No PuKinjal ramirezsa, PharmD Blood Pressure < 140/90 Blood Pressure 134/84( 025 9:22 AM EST) No Puia Lilian, PharmD documented as of this encounter Visit Diagnoses Diagnosis Asthma, unspecified asthma severity, unspecified whether complicated, unspecified whether persistent documented in this encounter Additional Health Concerns Assessment Noted Time PHQ-9 Depression Total Score: 8 01/21/20 23 3:35 PM EDT documented as of this encounter Care Teams Environmental Sustainability Manager Relationship Specialty Start Date End Date Osabldo Gentile MD [address] [place] [address] PCP - General Family Medicine 09/02/19 Lilian Baugh, PharmD [address] [place] [address] Pharmacist Internal Medicine 05/02/23 02/24/24 documented as of this encounter
--- OUTSIDE RECORDS SUMMARY | 2025-02-03 08:32 | XMS_ITS | Encounter Summary ---
Author Organization [employer] Address [address] [place] [address] 7 [place] [address] Care Team Providers Care Home Energy Rater Name Role Phone Name, Osbaldo RASCON Primary Care Provider [phone] Reason for Visit * Reason Onset Date Comments Med Refill 06/07/2024 Encounter Details Date Type Department Care Team (Late st Contact Info) Description 06/07/2024 Refill [facility] 230 [place], [place] [phone] Name, MD Osbaldo 230 [place] [address] Social History Tobacco Use Types Packs/Day Years [...] Description 02/23/2025 9:00 AM EDT Clinical Support [facility] [address] [place] [address] Juliana Pinedo RN 03/28/2025 10:00 AM EDT Office Visit [facility] [address] [place] [address] Name, MD Osbaldo [address] [place] [address] documented as of this encounter Goals Goal [...] documented as of this encounter Care Teams Home Energy Rater Relationship Specialty Start Date End Date NameOsbaldo MD [address] [place] [address] PCP - General Family Medicine 09/02/19 documented as of this encounter
--- OUTSIDE RECORDS SUMMARY | 2025-02-03 08:32 | XMS_ITS | Encounter Summary ---
Author Organization [employer] Address [address] [place] [address] 7t [place] [address] Care Team Providers Care Personal Financial Representative Name Role Phone Name, Osbaldo RASCON Primary Care Provider [phone] Reason for Visit * Reason Onset Date Comments Med Refill 03/29/2024 Encounter Details Date Type Department Care Team (Late st Contact Info) Description 03/29/2024 Refill [facility] 230 [place], [place] [phone] Name, MD Osbaldo 230 [place] [address] Social History Tobacco Use Types Packs/Day Years [...] 9:00 AM EDT Clinical Support [facility] [address] [place] [address] Juliana Pinedo RN 03/28/2025 10:00 AM EDT Office Visit [facility] [address] [place] [address] Name, MD Osbaldo [address] [place] [address] documented as of this encounter Goals Goal [...] as of this encounter Care Teams Personal Financial Representative Relationship Specialty Start Date End Date NameOsbaldo MD [address] [place] [address] PCP - General Family Medicine 09/02/19 documented as of this encounter
--- OUTSIDE RECORDS SUMMARY | 2025-02-03 08:32 | XMS_ITS | Encounter Summary ---
Author Organization [employer] Address [address] [place] [address] 7t [place] [address] Care Team Providers Care Marketing Mgr Name Role Phone Name, Osbaldo RASCON Primary Care Provider [phone] Lilian Baugh PharmD Unavailable [phone] Reason for Visit * Reason Onset Date Comments Med Refill 01/29/2024 Encounter Details Date Type Department Care Team (Late st Contact Info) Description 01/29/2024 Refill [facility] 230 [place], [place] [phone] Name, MD Osbaldo 230 [place] [address] Social History Tobacco Use Types Packs/Day Years [...] Description 02/23/2025 9:00 AM EDT Clinical Support [facility] [address] [place] [address] Juliana Pinedo RN 03/28/2025 10:00 AM EDT Office Visit [address] [address] Name, MD Osbaldo [address] [place] [address] documented as of this encounter Goals Goal [...] documented as of this encounter Care Teams Marketing Mgr Relationship Specialty Start Date End Date Name, MD Osbaldo [address] [place] [address] PCP - General Family Medicine 09/02/19 Kinjal Baughsa, PharmD [address] [place] [address] Pharmacist Internal Medicine 05/02/23 02/24/24 documented as of this encounter
--- OUTSIDE RECORDS SUMMARY | 2025-02-03 08:32 | XMS_ITS | Encounter Summary ---
Author Organization [employer] Address [address] [place] [address] 7t [place] [address] Care Team Providers Care Visual Presentation Manager Name Role Phone Name, Osbaldo RASCON Primary Care Provider [phone] Reason for Visit * Reason Onset Date Comments Med Refill 09/01/2024 Encounter Details Date Type Department Care Team (Late st Contact Info) Description 09/01/2024 Refill [facility] [address] [place], [place] [phone] Name, MD Osbaldo 230 [place] [address] Chronic low back pain, unspecified back pain [...] 02/23/2025 9:00 AM EDT Clinical Support [address] [address] Juliana Pinedo RN 03/28/2025 10:00 AM EDT Office Visit [address] [address] Name, MD Osbaldo [address] [place] [address] documented as of this encounter Goals Goal [...] documented as of this encounter Care Teams Visual Presentation Manager Relationship Specialty Start Date End Date NameOsbaldo MD [address] [place] [address] PCP - General Family Medicine 09/02/19 documented as of this encounter
--- OUTSIDE RECORDS SUMMARY | 2025-02-03 08:32 | XMS_ITS | Encounter Summary ---
Author Organization [employer] Address [address] [place] [address] 7t [place] [address] Care Team Providers Care Insecticide Mixer Name Role Phone Name, Osbaldo RASCON Primary Care Provider [phone] Lilian Baugh PharmD Unavailable [phone] Reason for Visit * Reason Onset Date Comments Med Refill 01/29/2024 Encounter Details Date Type Department Care Team (Late st Contact Info) Description 01/29/2024 Refill [facility] 230 [place], [place] [phone] Name, MD Osbaldo 230 [place] [address] Essential (primary) hypertension Social History Tobacco Use [...] AM EDT Clinical Support [facility] [address] [place] [address] Juliana Pinedo RN 03/28/2025 10:00 AM EDT Office Visit [facility] [address] [place] [address] Name, MD Osbaldo [address] [place] [address] documented as of this encounter Goals Goal [...] documented as of this encounter Care Teams Insecticide Mixer Relationship Specialty Start Date End Date Osbaldo Gentile MD [address] [place] [address] PCP - General Family Medicine 09/02/19 Lilian Baugh, PharmD [address] [place] [address] Pharmacist Internal Medicine 8/4/23 5/28/24 documented as of this encounter
--- OUTSIDE RECORDS SUMMARY | 2025-02-03 08:32 | XMS_ITS | Encounter Summary ---
Author Organization [employer] Address [address] [facility] 7t [place] [address] Care Team Providers Care Floor Framer Name Role Phone Name, Osbaldo RASCON Primary Care Provider [phone] Lilian Baugh PharmD Unavailable [phone] Encounter Details Date Type Department Care Team (Late st Contact Info) Description 10/31/2023 Abstract [facility] 230 [place], [place] [phone] Name, MD Osbaldo 230 [place] [address] Social History Tobacco Use Types Packs/Day Years [...] t he electric, gas, oil or water [employer] threatened to shut off services in your [...] Description 02/23/2025 9:00 AM EDT Clinical Support [facility] [address] [place] [address] Juliana Pinedo RN 03/28/2025 10:00 AM EDT Office Visit [facility] [address] [place] [address] Name, MD Osbaldo [address] [place] [address] documented as of this encounter Goals Goal [...] documented as of this encounter Care Teams Floor Framer Relationship Specialty Start Date End Date NameOsbaldo MD [address] [place] [address] PCP - General Family Medicine 09/02/19 Lilian Baugh, PharmD [address] [place] [address] Pharmacist Internal Medicine 05/02/23 02/24/24 documented as of this encounter
--- OUTSIDE RECORDS SUMMARY | 2025-02-03 08:32 | XMS_ITS | Encounter Summary ---
Author Organization [employer] Address [address] [place] [address] 7t [place] [address] Care Team Providers Care Web Art Director Name Role Phone Name, Osbaldo RASCON Primary Care Provider [phone] Reason for Visit * Reason Onset Date Comments Med Refill 07/22/2024 Encounter Details Date Type Department Care Team (Late st Contact Info) Description 07/22/2024 Refill [facility] 230 [place], [place] [phone] Betsy Nino MD 230 [place], [place] [phone] Allergic rhinitis, unspecified seasonality, unspecified trigger Social [...] 02/23/2025 9:00 AM EDT Clinical Support [facility] [address] [place] [address] Juliana Pinedo RN 03/28/2025 10:00 AM EDT Office Visit [address] [address] NameOsbaldo MD [address] [place] [address] documented as of this encounter Goals Goal [...] documented as of this encounter Care Teams Web Art Director Relationship Specialty Start Date End Date Osbaldo Gentile MD [address] [place] [address] PCP - General Family Medicine 09/02/19 documented as of this encounter
--- OUTSIDE RECORDS SUMMARY | 2025-02-03 08:32 | XMS_ITS | Encounter Summary ---
Author Organization [employer] Address [address] [place] [address] 7t [place] [address] Care Team Providers Care Laboratory Helper Name Role Phone Name, Osbaldo RASCON Primary Care Provider [phone] Lilian Baugh PharmD Unavailable [phone] Reason for Visit * Reason Comments Med Refill Encounter Details Date Type Department Care Team (Late st Contact Info) Description 03/03/2023 Refill [facility] 230 [place], [place] [phone] Name, MD Osbaldo 230 [place] [address] Lumbago with sciatica, left side Social History [...] 02/23/2025 9:00 AM EDT Clinical Support [address] [address] Juliana Pinedo, TOÑO 03/28/2025 10:00 AM EDT Office Visit [address] [address] Name, MD Osbaldo [address] [place] [address] documented as of this encounter Visit Diagnoses Diagnosis Lumbago with sciatica, left side documented in this encounter Additional Health Concerns Assessment Noted Time PHQ-9 Depression Total Score: 8 01/21/20 23 3:35 PM EDT documented as of this encounter Care Teams Laboratory Helper Relationship Specialty Start Date End Date Name, MD Osbaldo [address] [place] [address] PCP - General Family Medicine 09/02/19 Lilian Baugh PharmD [address] [place] [address] Pharmacist Internal Medicine 05/02/23 02/24/24 documented as of this encounter
--- OUTSIDE RECORDS SUMMARY | 2025-02-03 08:32 | XMS_ITS | Encounter Summary ---
Author Organization [employer] Address [address] [place] [address] 7 [place] [address] Care Team Providers Care Sheather Name Role Phone Name, Osbaldo RASCON Primary Care Provider [phone] Reason for Visit * Reason Onset Date Comments Med Refill 04/22/2024 Encounter Details Date Type Department Care Team ([facility] st Contact Info) Description 04/22/2024 Refill [facility] 230 [place], [place] [phone] Name, MD Osbaldo 230 [place] [address] Social History Tobacco Use Types Packs/Day Years [...] Description 02/23/2025 9:00 AM EDT Clinical Support [facility] [address] [place] [address] Juliana Pinedo RN 03/28/2025 10:00 AM EDT Office Visit [facility] [address] [place] [address] Name, MD Osbaldo [address] [place] [address] documented as of this encounter Goals Goal [...] documented as of this encounter Care Teams Sheather Relationship Specialty Start Date End Date NameOsbaldo MD [address] [place] [address] PCP - General Family Medicine 09/02/19 documented as of this encounter
--- OUTSIDE RECORDS SUMMARY | 2025-02-03 08:32 | XMS_ITS | Encounter Summary ---
Author Organization [employer] Address [address] [place] [address] 7 [place] [address] Care Team Providers Care Diesel Retrofit Installer Name Role Phone Name, Osbaldo RASCON Primary Care Provider [phone] Reason for Visit * Reason Onset Date Comments Med Refill 04/13/2024 Encounter Details Date Type Department Care Team ([facility] st Contact Info) Description 04/13/2024 Refill [facility] 230 [place], [place] [phone] Name, MD Osbaldo 230 [place] [address] Social History Tobacco Use Types Packs/Day Years [...] Description 02/23/2025 9:00 AM EDT Clinical Support [facility] [address] [place] [address] Juliana Pinedo RN 03/28/2025 10:00 AM EDT Office Visit [facility] [address] [place] [address] Name, MD Osbaldo [address] [place] [address] documented as of this encounter Goals Goal [...] documented as of this encounter Care Teams Diesel Retrofit Installer Relationship Specialty Start Date End Date NameOsbaldo MD [address] [place] [address] PCP - General Family Medicine 09/02/19 documented as of this encounter
--- OUTSIDE RECORDS SUMMARY | 2025-02-03 08:32 | XMS_ITS | Encounter Summary ---
Author Organization [employer] Address [address] [place] [address] 7 [place] [address] Care Team Providers Care Telepathist Name Role Phone Name, Osbaldo RASCON Primary Care Provider [phone] Lilian Baugh PharmD Unavailable [phone] Encounter Details Date Type Department Care Team (Late st Contact Info) Description 09/06/2022 Orders Only [facility] [address] [place] [address] Marya [place] LPN Social History Tobacco Use [...] 9:00 AM EDT Clinical Support [facility] [address] [place] [address] Juliana Pinedo RN 03/28/2025 10:00 AM EDT Office Visit [facility] [address] [place] [address] Osbaldo Gentile MD [address] [place] [address] documented as of this encounter Visit Diagnoses Not on filedocumented in this encounter Care Teams Telepathist Relationship Specialty Start Date End Date Osbaldo Gentile MD [address] [place] [address] PCP - General Family Medicine 09/02/19 Lilian Baugh PharmD 230 [place] [address] Pharmacist Internal Medicine 05/02/23 02/24/24 documented as of this encounter
--- OUTSIDE RECORDS SUMMARY | 2025-02-03 08:32 | XMS_ITS | Encounter Summary ---
Author Organization [employer] Address [address] [place] [address] 7t [place] [address] Care Team Providers Care Body Shop Worker Name Role Phone Name, Osbaldo RASCON Primary Care Provider [phone] Reason for Visit * Reason Onset Date Comments Med Refill 04/29/2024 Encounter Details Date Type Department Care Team (Late st Contact Info) Description 04/29/2024 Refill [facility] 230 [place], [place] [phone] Lissette Christie, BREANNE 230 [place], [place] [phone] Chronic low back pain, unspecified back pain [...] Description 02/23/2025 9:00 AM EDT Clinical Support [address] [address] Juliana Pinedo RN 03/28/2025 10:00 AM EDT Office Visit [address] [address] Name, MD Osbaldo [address] [place] [address] documented as of this encounter Goals Goal [...] of this encounter Care Teams Body Shop Worker Relationship Specialty Start Date End Date NameOsbaldo MD [address] [place] [address] PCP - General Family Medicine 09/02/19 documented as of this encounter
--- OUTSIDE RECORDS SUMMARY | 2025-02-03 08:32 | XMS_ITS | Encounter Summary ---
Author Organization [employer] Address [address] [place] [address] 7t [place] [address] Care Team Providers Care Finish Repairer Name Role Phone Name, Osbaldo RASCON Primary Care Provider Lilian Baugh PharmD Unavailable [phone] Reason for Visit * Reason Onset Date Comments Med Refill 01/23/2024 Encounter Details Date Type Department Care Team (Late st Contact Info) Description 01/23/[address] [facility] MEDICINE 230 [place], [place] [phone] Name, MD Osbaldo 230 [place] [address] Social History Tobacco Use Types Packs/Day Years [...] AM EDT Clinical Support [facility] MED[facility]INE [address] [place] [address] Juliana Pinedo RN 03/28/2025 10:00 AM EDT Office Visit [address] [address] Name, MD Osbaldo [address] [place] [address] documented as of this encounter Goals Goal [...] documented as of this encounter Care Teams Finish Repairer Relationship Specialty Start Date End Date Name, MD Osbaldo [address] [place] [address] PCP - General Family Medicine 09/02/19 Kinjal Baughsa, PharmD [address] [place] [address] Pharmacist Internal Medicine 05/02/23 02/24/24 documented as of this encounter
--- OUTSIDE RECORDS SUMMARY | 2025-02-03 08:32 | XMS_ITS | Encounter Summary ---
Author Organization [employer] Address [address] [place] [address] 7t [place] [address] Care Team Providers Care Network Consultant Name Role Phone Osbaldo Gentile MD Primary Care Provider [phone] Lilian Baugh PharmD Unavailable Reason for Visit * Reason Onset Date Comments Durable Medical Equipment 01/01/2023 Encounter Details Date Type Department Care Team ([facility] st Contact Info) Description 01/01/2023 Telephone [facility] MEDICINE 230 [place], [place] [phone] Name, MD Osbaldo 230 [place] [address] Durable Medical Equipment Social History Tobacco Use [...] on nebulizer Machine Please contact pt at [phone] documented in this encounter Plan of Treatment Upcoming Encounters Date Type Department Care Team (Late st Contact Info) Description 02/23/2025 9:00 AM EDT Clinical Support [address] [address] Juliana Pinedo, TÑOO 03/28/2025 10:00 AM EDT Office Visit [address] [address] Name, MD Osbaldo [address] [place] [address] documented as of this encounter Visit Diagnoses Not on filedocumented in this encounter Care Teams Network Consultant Relationship Specialty Start Date End Date Name, MD Osbaldo [address] [place] [address] PCP - General Family Medicine 09/02/19 Lilian Baugh PharmD [address] [place] [address] Pharmacist Internal Medicine 05/02/23 02/24/24 documented as of this encounter
--- OUTSIDE RECORDS SUMMARY | 2025-02-03 08:32 | XMS_ITS | Encounter Summary ---
Author Organization [employer] Address [address] [place] [address] 7t [place] [address] Care Team Providers Care Cellophane Tester Name Role Phone Name, Osbaldo RASCON Primary Care Provider [phone] Lilian Baugh PharmD Unavailable [phone] Encounter Details Date Type Department Care Team (Late Contact Info) Description 12/11/2022 Orders Only [facility] MED & PEDS [address] [place], [place] [phone] Shruti Harrington LPN Social History Tobacco Use [...] Upcoming Encounters Date Type Department Care Team ([facility] Contact Info) Description 02/23/2025 9:00 AM EDT Clinical Support [facility] MEDICINE [address] [place] [address] [phone] Juliana Pinedo, TOÑO 03/28/2025 10:00 AM EDT Office Visit [facility] MEDICINE [address] [place] [address] [phone] Name, MD Osbaldo [address] [place] [address] [phone] documented as of this encounter Visit Diagnoses Not on filedocumented in this encounter Care Teams Cellophane Tester Relationship Specialty Start Date End Date Name, MD Osbaldo 230 [place], [place] [phone] PCP - General Family Medicine 09/02/19 Lilian Baugh PharmD 230 [place] [address] Pharmacist Internal Medicine 05/02/23 02/24/24 documented as of this encounter
== END 2025-02-03 08:48 | disposition home or self-care (01) ==
LOC: HO.HUSH 08:14
PROVIDERS: PCP Internal Medicine Geriatric Medicine; Visit Provider Nurse Practitioner Family
DX: N52.9 Male erectile dysfunction, unspecified (principal); R35.1 Nocturia; Z13.9 Encounter for screening, unspecified
CPT/HCPCS: 99204

== ENCOUNTER → 2025-02-03 08:14 | Outpatient (BNVA) | payer OTHER, SELFPAY | PROVIDERS: PCP Internal Medicine Geriatric Medicine; Visit Provider Nurse Practitioner Family | DX: N52.9 Male erectile dysfunction, unspecified (principal); R35.1 Nocturia | CPT/HCPCS: 51798; 81003 ==

== ENCOUNTER 2025-02-12 11:17 | Outpatient (REF) | payer OTHER, SELFPAY ==
--- OUTSIDE RECORDS SUMMARY | 2025-02-12 11:19 | XMS_ITS | Encounter Summary ---
Author Organization [employer] Address [address] [place] [address] 7t [place] [address] Care Team Providers Care Wax Machine Operator Name Role Phone Name, Osbaldo RASCON Primary Care Provider [phone] Reason for Visit * Reason Onset Date Comments Med Refill 12/30/2024 Encounter Details Date Type Department Care Team (Late st Contact Info) Description 12/30/2024 Refill [facility] MEDICINE 230 [place], [place] [phone] Name, MD Osbaldo 230 [place], [place] [phone] Chronic low back pain, unspecified back pain [...] 02/23/2025 9:00 AM EDT Clinical Support [address] [address] Juliana Pinedo RN 03/28/2025 10:00 AM EDT Office Visit [address] [address] Name, MD Osbaldo [address] [place] [address] documented as of this encounter Goals Goal [...] documented as of this encounter Care Teams Wax Machine Operator Relationship Specialty Start Date End Date NameOsbaldo MD [address] [place] [address] PCP - General Family Medicine 09/02/19 documented as of this encounter
--- OUTSIDE RECORDS SUMMARY | 2025-02-12 11:19 | XMS_ITS | Encounter Summary ---
Author Organization [employer] Address [address] [place] [address] 7t [place] [address] Care Team Providers Care Program Management Analyst Name Role Phone Name, Osbaldo RASCON Primary Care Provider [phone] Reason for Visit * Reason Comments Med Refill Encounter Details Date Type Department Care Team (Late st Contact Info) Description 10/04/2024 Refill [facility] MEDICINE 230 [place], [place] [phone] Name, MD Osbaldo 230 [place] [address] Chronic low back pain, unspecified back pain [...] Description 02/23/2025 9:00 AM EDT Clinical Support [address] [address] Juliana Pinedo RN 03/28/2025 10:00 AM EDT Office Visit [address] [address] Name, MD Osbaldo [address] [place] [address] documented as of this encounter Goals Goal [...] documented as of this encounter Care Teams Program Management Analyst Relationship Specialty Start Date End Date Osbaldo Gentile MD [address] [place] [address] PCP - General Family Medicine 09/02/19 documented as of this encounter
--- OUTSIDE RECORDS SUMMARY | 2025-02-12 11:19 | XMS_ITS | Encounter Summary ---
Author Organization [employer] Address [address] [place] [address] 7t [place] [address] Care Team Providers Care Airport Operations Manager Name Role Phone Name, Osbaldo RASCON Primary Care Provider [phone] Reason for Visit * Reason Onset Date Comments Med Refill 12/27/2024 Encounter Details Date Type Department Care Team (Late st Contact Info) Description 12/27/2024 Refill [facility] MED & PEDS [address] [place], [place] [phone] Name, MD Osbaldo 230 [place] [address] Chronic low back pain, unspecified back pain [...] Description 02/23/2025 9:00 AM EDT Clinical Support [address] [address] Juliana Pinedo RN 03/28/2025 10:00 AM EDT Office Visit [address] [address] Name, MD Osbaldo [address] [place] [address] documented as of this encounter Goals Goal [...] documented as of this encounter Care Teams Airport Operations Manager Relationship Specialty Start Date End Date NameOsbaldo MD [address] [place] [address] PCP - General Family Medicine 09/02/19 documented as of this encounter
--- OUTSIDE RECORDS SUMMARY | 2025-02-12 11:19 | XMS_ITS | Clinical Summary ---
Author Organization [facility] Address [address] [place] [address] Care Team Providers Care Logistics Assistant Name Role Phone Ariana Haro MD Primary [...] age to complete this topic Care Teams Logistics Assistant Relationship Specialty Start Date End Date Ariana Haro MD PCP - General 08/15/17
--- OUTSIDE RECORDS SUMMARY | 2025-02-12 11:19 | XMS_ITS | Encounter Summary ---
Author Organization [employer] Address [address] [place] [address] 7t [place] [address] Care Team Providers Care Salesperson Pianos And Organs Name Role Phone Name, Osbaldo RASCON Primary Care Provider [phone] Reason for Visit * Reason Onset Date Comments Med Refill 12/03/2024 Encounter Details Date Type Department Care Team (Late st Contact Info) Description 12/03/2024 Refill [facility] MED & PEDS [address] [place], [place] [phone] Name, MD Osbaldo 230 [place] [address] Chronic low back pain, unspecified back pain [...] Description 02/23/2025 9:00 AM EDT Clinical Support [address] [address] Juliana Pinedo RN 03/28/2025 10:00 AM EDT Office Visit [address] [address] Name, MD Osbaldo [address] [place] [address] documented as of this encounter Goals Goal [...] documented as of this encounter Care Teams Salesperson Pianos And Organs Relationship Specialty Start Date End Date NameOsbaldo MD [address] [place] [address] PCP - General Family Medicine 09/02/19 documented as of this encounter
--- OUTSIDE RECORDS SUMMARY | 2025-02-12 11:19 | XMS_ITS | Encounter Summary ---
Author Organization [employer] Address [address] [place] [address] 7t [place] [address] Care Team Providers Care Rope Twisting Machine Operator Name Role Phone Name, Osbaldo RASCON Primary Care Provider [phone] Reason for Visit * Reason Comments Med Refill Encounter Details Date Type Department Care Team (Late st Contact Info) Description 10/06/2024 Refill [facility] MEDICINE 230 [place], [place] [phone] Name, MD Osbaldo 230 [place] [address] Chronic low back pain, unspecified back pain [...] Description 02/23/2025 9:00 AM EDT Clinical Support [address] [address] Juliana Pinedo RN 03/28/2025 10:00 AM EDT Office Visit [address] [address] Name, MD Osbaldo [address] [place] [address] documented as of this encounter Goals Goal [...] documented as of this encounter Care Teams Rope Twisting Machine Operator Relationship Specialty Start Date End Date Osbaldo Gentile MD [address] [place] [address] PCP - General Family Medicine 09/02/19 documented as of this encounter
--- OUTSIDE RECORDS SUMMARY | 2025-02-12 11:19 | XMS_ITS | Encounter Summary ---
Author Organization [employer] Address [address] [place] [address] 7t [place] [address] Care Team Providers Care Human Services Worker Name Role Phone Name, Osbaldo RASCON Primary Care Provider [phone] Lilian Baugh PharmD Unavailable [phone] Reason for Visit * Reason Onset Date Comments Med Refill 10/28/2023 Encounter Details Date Type Department Care Team (Late st Contact Info) Description 10/28/2023 Refill [facility] MEDICINE 230 [place], [place] [phone] Betsy Nino MD 230 [place], [place] [phone] Asthma, unspecified asthma severity, unspecified whether complicated, [...] Description 02/23/2025 9:00 AM EDT Clinical Support [facility] MEDICINE [address] [place] [address] Juliana Pinedo RN 03/28/2025 10:00 AM EDT Office Visit [address] [address] NameOsbaldo MD [address] [place] [address] documented as of this encounter Goals Goal [...] documented as of this encounter Care Teams Human Services Worker Relationship Specialty Start Date End Date Osbaldo Gentile MD [address] [place] [address] PCP - General Family Medicine 09/02/19 Lilian Baugh, PharmD 230 [place] [address] Pharmacist Internal Medicine 05/02/23 02/24/24 documented as of this encounter
--- OUTSIDE RECORDS SUMMARY | 2025-02-12 11:19 | XMS_ITS | Encounter Summary ---
Author Organization [employer] Address [address] [place] [address] 7t [place] [address] Care Team Providers Care Official Greeter Name Role Phone Name, Osbaldo RASCON Primary Care Provider [phone] Lilian Baugh PharmD Unavailable [phone] Reason for Visit * Reason Comments Med Refill Encounter Details Date Type Department Care Team ([facility] st Contact Info) Description 10/16/2023 Refill [facility] MEDICINE 230 [place], [place] [phone] Lb Noriega MD 230 [place], [place] [phone] Social History Tobacco Use Types Packs/Day Years [...] 9:00 AM EDT Clinical Support [facility] MEDICINE [address] [place] [address] Juliana Pinedo RN 03/28/2025 10:00 AM EDT Office Visit [address] [address] Name, MD Osbaldo [address] [place] [address] documented as of this encounter Goals Goal [...] documented as of this encounter Care Teams Official Greeter Relationship Specialty Start Date End Date Name, MD Osbaldo [address] [place] [address] PCP - General Family Medicine 09/02/19 Kinjal Baughsa, PharmD [address] [place] [address] Pharmacist Internal Medicine 05/02/23 02/24/24 documented as of this encounter
--- OUTSIDE RECORDS SUMMARY | 2025-02-12 11:19 | XMS_ITS | Encounter Summary ---
Author Organization [employer] Address [address] [place] [address] 7t [place] [address] Care Team Providers Care Teletype Adjuster Name Role Phone Name, Osbaldo RASCON Primary Care Provider [phone] Lilian Baugh PharmD Unavailable [phone] Reason for Visit * Reason Onset Date Comments Med Refill 05/01/2023 Encounter Details Date Type Department Care Team (Late st Contact Info) Description 05/01/[address] [facility] MEDICINE 230 [place], [place] [phone] Name, MD Osbaldo 230 [place] [address] Med Refill Social History Tobacco Use Types [...] AM EDT Clinical Support [facility] MEDICINE [address] [place] [address] Juliana Pinedo, RN 03/28/2025 10:00 AM EDT Office Visit [facility] MEDICINE [address] [place] [address] Name, MD [place] [address] documented as of this encounter Goals Goal [...] documented as of this encounter Care Teams Teletype Adjuster Relationship Specialty Start Date End Date Name, MD Osbaldo [address] [place] [address] PCP - General Family Medicine 09/02/19 Puia, Lilian, PharmD [address] [place] [address] Pharmacist Internal Medicine 05/02/23 02/24/24 documented as of this encounter
--- OUTSIDE RECORDS SUMMARY | 2025-02-12 11:19 | XMS_ITS | Encounter Summary ---
Author Organization [employer] Address [address] [place] [address] 7t [place] [address] Care Team Providers Care Electric Locomotive Crane Operator Name Role Phone Name, Osbaldo RASCON Primary Care Provider [phone] Lilian Baugh PharmD Unavailable [phone] Reason for Visit * Reason Onset Date Comments Nurse Triage 09/08/2023 Encounter Details Date Type Department Care Team ([facility] st Contact Info) Description 09/08/2023 Telephone [facility] MEDICINE 230 [place], [place] [phone] Name, MD Osbaldo 230 [place] [address] Nurse Triage Social History Tobacco Use Types [...] accepted this outcome Please contact pt at [phone] (No general internal medicine doctor needed) documented in this encounter Plan of Treatment Upcoming Encounters Date Type Department Care Team ([facility] st Contact Info) Description 02/23/2025 9:00 AM EDT Clinical Support [address] [address] Juliana Pinedo TOÑO 03/28/2025 10:00 AM EDT Office Visit [facility] MEDICINE 230 [place] [address] Name, MD [place] [address] documented as of this encounter Goals Goal Patient Goal Type Associated Problems Recent Progress Patient-Stated? Author Record your blood pressure once per day Blood Pressure No Lilian Buagh, PharmD Blood Pressure < 140/90 Blood Pressure 134/84( 025 9:22 AM EST) No Lilian Baugh, PharmD documented as of this encounter Visit Diagnoses Not on filedocumented in this encounter Additional Health Concerns Assessment Noted Time PHQ-9 Depression Total Score: 8 01/21/20 23 3:35 PM EDT documented as of this encounter Care Teams Electric Locomotive Crane Operator Relationship Specialty Start Date End Date Name, MD Osbaldo [address] [place] [address] PCP - General Family Medicine 09/02/19 Lilian Baugh, PharmD [address] [place] [address] Pharmacist Internal Medicine 05/02/23 02/24/24 documented as of this encounter
--- OUTSIDE RECORDS SUMMARY | 2025-02-12 11:19 | XMS_ITS | Encounter Summary ---
Author Organization [employer] Address [address] [place] [address] 7t [place] [address] Care Team Providers Care Physical Education Department Chair Name Role Phone Name, Osbaldo RASCON Primary Care Provider [phone] Lilian Baugh PharmD Unavailable [phone] Reason for Visit * Reason Comments Med Refill Encounter Details Date Type Department Care Team (Late st Contact Info) Description 05/25/2023 Refill [facility] MEDICINE [address] [place] [address] Name, MD Osbaldo [address] [place] [address] Social History Tobacco Use Types Packs/Day Years [...] Description 02/23/2025 9:00 AM EDT Clinical Support [facility] MEDICINE [address] [place] [address] Juliana Pinedo RN 03/28/2025 10:00 AM EDT Office Visit [facility] MEDICINE [address] [place] [address] Name, MD Osbaldo 230 [place] [address] documented as of this encounter Goals Goal [...] documented as of this encounter Care Teams Physical Education Department Chair Relationship Specialty Start Date End Date Name, MD Osbaldo [address] [place] [address] PCP - General Family Medicine 09/02/19 Lilian Baugh, PharmD [address] [place] [address] Pharmacist Internal Medicine 05/02/23 02/24/24 documented as of this encounter
--- OUTSIDE RECORDS SUMMARY | 2025-02-12 11:19 | XMS_ITS | Encounter Summary ---
Author Organization [employer] Address [address] [place] [address] 7t [place] [address] Care Team Providers Care Assistant Technician Name Role Phone Name, Osbaldo RASCON Primary Care Provider [phone] Reason for Visit * Reason Onset Date Comments Med Refill 12/27/2024 Encounter Details Date Type Department Care Team (Late st Contact Info) Description 12/27/2024 Refill [facility] MEDICINE 230 [place], [place] [phone] Georgina Hirsch, ANP 230 [place] [address] Gastroesophageal reflux disease, unspecified whether esophagitis present [...] Description 02/23/2025 9:00 AM EDT Clinical Support [facility] MEDICINE [address] [place] [address] Juliana Pinedo RN 03/28/2025 10:00 AM EDT Office Visit [address] [address] NameOsbaldo MD [address] [place] [address] documented as of this encounter Goals Goal [...] documented as of this encounter Care Teams Assistant Technician Relationship Specialty Start Date End Date Osbaldo Gentile MD [address] [place] [address] PCP - General Family Medicine 09/02/19 documented as of this encounter
--- OUTSIDE RECORDS SUMMARY | 2025-02-12 11:19 | XMS_ITS | Encounter Summary ---
Author Organization [employer] Address [address] [place] [address] 7 [place] [address] Care Team Providers Care Textile Worker Name Role Phone Name, Osbaldo RASCON Primary Care Provider [phone] Reason for Visit * Reason Onset Date Comments Med Refill 01/27/2025 Encounter Details Date Type Department Care Team (Late st Contact Info) Description 01/27/2025 Refill [facility] MEDICINE 230 [place], [place] [phone] Darcie Cunha MD 230 [place], [place] [phone] Chronic low back pain, unspecified back pain [...] 02/23/2025 9:00 AM EDT Clinical Support [address] [address] Juliana Pinedo RN 03/28/2025 10:00 AM EDT Office Visit [address] [address] Name, MD Osbaldo [address] [place] [address] documented as of this encounter Goals Goal [...] documented as of this encounter Care Teams Textile Worker Relationship Specialty Start Date End Date Osbaldo Gentile MD [address] [place] [address] PCP - General Family Medicine 09/02/19 documented as of this encounter
--- OUTSIDE RECORDS SUMMARY | 2025-02-12 11:19 | XMS_ITS | Encounter Summary ---
Author Organization [employer] Address [address] [place] [address] 7t [place] [address] Care Team Providers Care Grips Name Role Phone Name, Osbaldo RASCON Primary Care Provider [phone] Lilian Baugh PharmD Unavailable [phone] Reason for Visit * Reason Onset Date Comments Med Refill 07/23/2023 Encounter Details Date Type Department Care Team (Late st Contact Info) Description 07/23/2023 Refill [facility] MEDICINE 230 [place], [place] [phone] Lb Noriega MD 230 [place] [address] Social History Tobacco Use Types Packs/Day Years [...] Description 02/23/2025 9:00 AM EDT Clinical Support [facility] MEDICINE [address] [place] [address] Juliana Pinedo RN 03/28/2025 10:00 AM EDT Office Visit [facility] MEDICINE [address] [place] [address] Name, MD Osbaldo [address] [place] [address] documented as of this encounter Goals Goal [...] documented as of this encounter Care Teams Grips Relationship Specialty Start Date End Date Osbaldo Gentile MD [address] [place] [address] PCP - General Family Medicine 09/02/19 Lilian Baugh, PharmD [address] [place] [address] Pharmacist Internal Medicine 05/02/23 02/24/24 documented as of this encounter
--- OUTSIDE RECORDS SUMMARY | 2025-02-12 11:19 | XMS_ITS | Encounter Summary ---
Author Organization [employer] Address [address] [place] [address] 7t [place] [address] Care Team Providers Care Campus President Name Role Phone Name, Osbaldo RASCON Primary Care Provider [phone] Lilian Baugh PharmD Unavailable [phone] Reason for Visit * Reason Onset Date Comments Med Refill 10/28/2023 Encounter Details Date Type Department Care Team (Late st Contact Info) Description 10/28/2023 Refill [facility] MEDICINE 230 [place], [place] [phone] Darcie Cunha MD 230 [place], [place] [phone] Chronic low back pain, unspecified back pain [...] 02/23/2025 9:00 AM EDT Clinical Support [facility] MEDICINE [address] [place] [address] Juliana Pinedo RN 03/28/2025 10:00 AM EDT Office Visit [address] [address] NameOsbaldo MD [address] [place] [address] documented as of this encounter Goals Goal [...] documented as of this encounter Care Teams Campus President Relationship Specialty Start Date End Date Osbaldo Gentile MD [address] [place] [address] PCP - General Family Medicine 09/02/19 Lilian Baugh PharmD [address] [place] [address] Pharmacist Internal Medicine 05/02/23 02/24/24 documented as of this encounter
--- OUTSIDE RECORDS SUMMARY | 2025-02-12 11:19 | XMS_ITS | Clinical Summary ---
Author Organization [facility]y Address [address] [place] [address] Care Team Providers Care Enterprise Sales Executive Name Role Phone Ariana Haro MD Primary [...] age to complete this topic Care Teams Enterprise Sales Executive Relationship Specialty Start Date End Date Ariana Haro MD [address] [place] [address] PCP - General 08/15/17
--- OUTSIDE RECORDS SUMMARY | 2025-02-12 11:19 | XMS_ITS | Encounter Summary ---
Author Organization [employer] Address [address] [place] [address] 7t [place] [address] Care Team Providers Care Commercial Fisher Name Role Phone Name, Osbaldo RASCON Primary Care Provider [phone] Reason for Visit * Reason Onset Date Comments Med Refill 10/07/2024 Encounter Details Date Type Department Care Team (Late st Contact Info) Description 10/07/2024 Refill [facility] MEDICINE 230 [place], [place] [phone] Name, MD Osbaldo 230 [place], [place] [phone] Chronic low back pain, unspecified back pain [...] 02/23/2025 9:00 AM EDT Clinical Support [address] [address] Juliana Pinedo RN 03/28/2025 10:00 AM EDT Office Visit [address] [address] Name, MD Osbaldo [address] [place] [address] documented as of this encounter Goals Goal [...] documented as of this encounter Care Teams Commercial Fisher Relationship Specialty Start Date End Date NameOsbaldo MD [address] [place] [address] PCP - General Family Medicine 09/02/19 documented as of this encounter
--- OUTSIDE RECORDS SUMMARY | 2025-02-12 11:19 | XMS_ITS | Encounter Summary ---
Author Organization [employer] Address [address] [place] [address] 7 [place] [address] Care Team Providers Care Process Maintenance Technician Name Role Phone Name, Osbaldo RASCON Primary Care Provider [phone] Reason for Visit * Reason Onset Date Comments Med Refill 09/30/2024 Encounter Details Date Type Department Care Team ([facility] st Contact Info) Description 09/30/2024 Refill [facility] MEDICINE 230 [place], [place] [phone] Name, MD Osbaldo 230 [place] [address] Allergic rhinitis, unspecified seasonality, unspecified trigger; Chronic [...] Description 02/23/2025 9:00 AM EDT Clinical Support [facility] MED[facility]INE [address] [place] [address] Juliana Pinedo RN 03/28/2025 10:00 AM EDT Office Visit [facility] [address] [place] [address] NameOsbaldo MD [address] [place] [address] documented as of this encounter Goals Goal [...] documented as of this encounter Care Teams Process Maintenance Technician Relationship Specialty Start Date End Date Osbaldo Gentile MD [address] [place] [address] PCP - General Family Medicine 09/02/19 documented as of this encounter
--- OUTSIDE RECORDS SUMMARY | 2025-02-12 11:20 | XMS_ITS | Encounter Summary ---
Author Organization [employer] Address [address] [place] [address] 7t [place] [address] Care Team Providers Care Head Of Strategy Name Role Phone Osbaldo Gentile MD Primary Care Provider [phone] Lilian Baugh PharmD Unavailable [phone] Reason for Visit * Reason Onset Date Comments Durable Medical Equipment 01/01/2023 Encounter Details Date Type Department Care Team ([facility] st Contact Info) Description 01/01/2023 Telephone [facility] MEDICINE 230 [place], [place] [phone] Name, MD Osbaldo 230 [place] [address] Durable Medical Equipment Social History Tobacco Use [...] on nebulizer Machine Please contact pt at [phone] documented in this encounter Plan of Treatment Upcoming Encounters Date Type Department Care Team (Late st Contact Info) Description 02/23/2025 9:00 AM EDT Clinical Support [address] [address] Juliana Pinedo, TOÑO 03/28/2025 10:00 AM EDT Office Visit [address] [address] Name, MD Osbaldo [address] [place] [address] documented as of this encounter Visit Diagnoses Not on filedocumented in this encounter Care Teams Head Of Strategy Relationship Specialty Start Date End Date Name, MD Osbaldo [address] [place] [address] PCP - General Family Medicine 09/02/19 Lilian Baugh PharmD [address] [place] [address] Pharmacist Internal Medicine 05/02/23 02/24/24 documented as of this encounter
--- OUTSIDE RECORDS SUMMARY | 2025-02-12 11:20 | XMS_ITS | Encounter Summary ---
Author Organization [employer] Address [address] [place] [address] 7t [place] [address] Care Team Providers Care Educational Therapist Name Role Phone Name, Osbaldo RASCON Primary Care Provider [phone] Reason for Visit * Reason Onset Date Comments Med Refill 09/01/2024 Encounter Details Date Type Department Care Team (Late st Contact Info) Description 09/01/[address] [facility] MED & PEDS [address] [place], [place] [phone] Name, MD Osbaldo 230 [place] [address] Chronic low back pain, unspecified back pain [...] Description 02/23/2025 9:00 AM EDT Clinical Support [address] [address] Juliana Pinedo RN 03/28/2025 10:00 AM EDT Office Visit [address] [address] Name, MD Osbaldo [address] [place] [address] documented as of this encounter Goals Goal [...] documented as of this encounter Care Teams Educational Therapist Relationship Specialty Start Date End Date NameOsbaldo MD [address] [place] [address] PCP - General Family Medicine 09/02/19 documented as of this encounter
--- OUTSIDE RECORDS SUMMARY | 2025-02-12 11:20 | XMS_ITS | Encounter Summary ---
Author Organization [employer] Address [address] [place] [address] 7t [place] [address] Care Team Providers Care Goodyear Stitcher Name Role Phone Name, Osbaldo RASCON Primary Care Provider [phone] Reason for Visit * Reason Onset Date Comments Med Refill 03/29/2024 Encounter Details Date Type Department Care Team (Late st Contact Info) Description 03/29/2024 Refill [facility] MED[facility]INE 230 [place], [place] [phone] Georgina Hirsch, ANP 230 [place], [place] [phone] Gastroesophageal reflux disease, unspecified whether esophagitis present [...] Description 02/23/2025 9:00 AM EDT Clinical Support [facility] [address] [place] [address] Juliana Pinedo RN 03/28/2025 10:00 AM EDT Office Visit [address] [address] NameOsbaldo MD [address] [place] [address] documented as of this encounter Goals Goal [...] documented as of this encounter Care Teams Goodyear Stitcher Relationship Specialty Start Date End Date Osbaldo Gentile MD [address] [place] [address] PCP - General Family Medicine 09/02/19 documented as of this encounter
--- OUTSIDE RECORDS SUMMARY | 2025-02-12 11:20 | XMS_ITS | Encounter Summary ---
Author Organization [employer] Address [address] [place] [address] 7t [place] [address] Care Team Providers Care Chief Merchandising Officer Name Role Phone Name, Osbaldo RASCON Primary Care Provider [phone] Lilian Baugh PharmD Unavailable [phone] Reason for Visit * Reason Onset Date Comments Med Refill 01/29/2024 Encounter Details Date Type Department Care Team (Late st Contact Info) Description 01/29/2024 Refill [facility] MEDICINE 230 [place], [place] [phone] Name, MD Osbaldo 230 [place] [address] Essential (primary) hypertension Social History Tobacco Use [...] 02/23/2025 9:00 AM EDT Clinical Support [facility] MEDICINE [address] [place] [address] Juliana Pinedo RN 03/28/2025 10:00 AM EDT Office Visit [facility] MEDICINE [address] [place] [address] Name, MD Osbaldo [address] [place] [address] documented as of this encounter Goals Goal [...] documented as of this encounter Care Teams Chief Merchandising Officer Relationship Specialty Start Date End Date Osbaldo Gentile MD [address] [place] [address] PCP - General Family Medicine 09/02/19 Lilian Baugh, PharmD [address] [place] [address] Pharmacist Internal Medicine 8/4/23 5/28/24 documented as of this encounter
--- OUTSIDE RECORDS SUMMARY | 2025-02-12 11:20 | XMS_ITS | Encounter Summary ---
Author Organization [employer] Address [address] [place] [address] 7t [place] [address] Care Team Providers Care Chronometer Assembler And Adjuster Name Role Phone Name, Osbaldo RASCON Primary Care Provider [phone] Lilian Baugh PharmD Unavailable [phone] Encounter Details Date Type Department Care Team (Late st Contact Info) Description 10/02/2022 Orders Only [facility] MED & PEDS [address] [place], [place] [phone] Shruti Harrington LPN Social History Tobacco Use [...] Description 02/23/2025 9:00 AM EDT Clinical Support [facility] MEDICINE [address] [place] [address] Juliana Pinedo RN 03/28/2025 10:00 AM EDT Office Visit [facility] MEDICINE [address] [place] [address] [phone] Osbaldo Gentile MD [address] [place] [address] documented as of this encounter Visit Diagnoses Not on filedocumented in this encounter Care Teams Chronometer Assembler And Adjuster Relationship Specialty Start Date End Date Osbaldo Gentile MD [address] [place] [address] PCP - General Family Medicine 09/02/19 Lilian Baugh PharmD 230 [place] [address] Pharmacist Internal Medicine 05/02/23 02/24/24 documented as of this encounter
--- OUTSIDE RECORDS SUMMARY | 2025-02-12 11:20 | XMS_ITS | Encounter Summary ---
Author Organization [employer] Address [address] [place] [address] 7t [place] [address] Care Team Providers Care Oyster Worker Name Role Phone NameOsbaldo MD Primary Care Provider Lilian Baugh PharmD Unavailable [phone] Reason for Visit * Reason Comments Med Refill Encounter Details Date Type Department Care Team (Late st Contact Info) Description 09/06/2022 Refill [facility] MEDICINE [address] [place] [address] [phone] Osbaldo Gentile MD [address] [place] [address] Asthma, unspecified asthma severity, unspecified whether complicated, [...] Description 02/23/2025 9:00 AM EDT Clinical Support [facility] MEDICINE [address] [place] [address] [phone] Juliana Pinedo RN 03/28/2025 10:00 AM EDT Office Visit [facility] MED[facility]INE [address] [place] [address] [phone] Osbaldo Gentile MD [address] [place] [address] [phone] documented as of this encounter Visit Diagnoses Diagnosis Asthma, unspecified asthma severity, unspecified whether complicated, unspecified whether persistent- Primary Lumbago with sciatica, left side documented in this encounter Care Teams Oyster Worker Relationship Specialty Start Date End Date Name, MD Osbaldo 230 [place], [place] [phone] PCP - General Family Medicine 09/02/19 Lilian Baugh, Anastasia 230 [place] [address] Pharmacist Internal Medicine 05/02/23 02/24/24 documented as of this encounter
--- OUTSIDE RECORDS SUMMARY | 2025-02-12 11:20 | XMS_ITS | Encounter Summary ---
Author Organization [employer] Address [address] [facility] 7t [place] [address] Care Team Providers Care Sexologist Name Role Phone Name, Osbaldo RASCON Primary Care Provider [phone] Lilian Baugh PharmD Unavailable [phone] Encounter Details Date Type Department Care Team (Late st Contact Info) Description 10/31/2023 Abstract [facility] MEDICINE 230 [place], [place] [phone] Name, MD Osbaldo 230 [place], [place] [phone] Social History Tobacco Use Types Packs/Day Years [...] t he electric, gas, oil or water [employer] threatened to shut off services in your [...] Description 02/23/2025 9:00 AM EDT Clinical Support [facility] MEDICINE [address] [place] [address] Juliana Pinedo RN 03/28/2025 10:00 AM EDT Office Visit [facility] MEDICINE [address] [place] [address] Name, MD Osbaldo [address] [place] [address] documented as of this encounter Goals Goal [...] documented as of this encounter Care Teams Sexologist Relationship Specialty Start Date End Date NameOsbaldo MD [address] [place] [address] PCP - General Family Medicine 09/02/19 Lilian Baugh, PharmD [address] [place] [address] Pharmacist Internal Medicine 05/02/23 02/24/24 documented as of this encounter
--- OUTSIDE RECORDS SUMMARY | 2025-02-12 11:20 | XMS_ITS | Encounter Summary ---
Author Organization [employer] Address [address] [place] [address] 7 [place] [address] Care Team Providers Care Air Crew Member Name Role Phone Name, Osbaldo RASCON Primary Care Provider [phone] Lilian Baugh PharmD Unavailable [phone] Encounter Details Date Type Department Care Team (Late st Contact Info) Description 09/06/2022 Orders Only [facility] [address] [place] [address] Marya Wseton LPN Social History Tobacco Use Types Packs/Day [...] 9:00 AM EDT Clinical Support [facility] [address] [place] [address] Juliana Pinedo RN 03/28/2025 10:00 AM EDT Office Visit [facility] [address] [place] [address] Osbaldo Gentile MD [address] [place] [address] documented as of this encounter Visit Diagnoses Not on filedocumented in this encounter Care Teams Air Crew Member Relationship Specialty Start Date End Date Osbaldo Gentile MD [address] [place] [address] PCP - General Family Medicine 09/02/19 Lilian Baugh PharmD 230 [place] [address] Pharmacist Internal Medicine 05/02/23 02/24/24 documented as of this encounter
--- OUTSIDE RECORDS SUMMARY | 2025-02-12 11:20 | XMS_ITS | Encounter Summary ---
Author Organization [employer] Address [address] [place] [address] 7t [place] [address] Care Team Providers Care Retail Center Receptionist Name Role Phone Name, Osbaldo RASCON Primary Care Provider [phone] Lilian Baugh PharmD Unavailable [phone] Reason for Visit * Reason Onset Date Comments Med Refill 01/29/2024 Encounter Details Date Type Department Care Team (Late st Contact Info) Description 01/29/2024 Refill [facility] MEDICINE 230 [place], [place] [phone] Name, MD Osbaldo 230 [place] [address] Social History Tobacco Use Types Packs/Day Years [...] [facility] MEDICINE [address] [place] [address] Juliana Pinedo RN 03/28/2025 10:00 AM EDT Office Visit [address] [address] Name, MD Osbaldo [address] [place] [address] documented as of this encounter Goals Goal [...] documented as of this encounter Care Teams Retail Center Receptionist Relationship Specialty Start Date End Date Name, MD Osbaldo [address] [place] [address] PCP - General Family Medicine 09/02/19 Kinjal Baughsa, PharmD [address] [place] [address] Pharmacist Internal Medicine 05/02/23 02/24/24 documented as of this encounter
--- OUTSIDE RECORDS SUMMARY | 2025-02-12 11:20 | XMS_ITS | Encounter Summary ---
Author Organization [employer] Address [address] [place] [address] 7 [place] [address] Care Team Providers Care Store Clerk Name Role Phone Name, Osbaldo RASCON Primary Care Provider [phone] Reason for Visit * Reason Onset Date Comments Med Refill 04/22/2024 Encounter Details Date Type Department Care Team ([facility] st Contact Info) Description 04/22/2024 Refill [facility] MEDICINE 230 [place], [place] [phone] Name, MD Osbaldo 230 [place] [address] Social History Tobacco Use Types Packs/Day Years [...] Description 02/23/2025 9:00 AM EDT Clinical Support [facility] MEDICINE [address] [place] [address] Juliana Pinedo RN 03/28/2025 10:00 AM EDT Office Visit [facility] MEDICINE [address] [place] [address] Name, MD Osbaldo [address] [place] [address] documented as of this encounter Goals Goal [...] documented as of this encounter Care Teams Store Clerk Relationship Specialty Start Date End Date NameOsbaldo MD [address] [place] [address] PCP - General Family Medicine 09/02/19 documented as of this encounter
--- OUTSIDE RECORDS SUMMARY | 2025-02-12 11:20 | XMS_ITS | Encounter Summary ---
Author Organization [employer] Address [address] [place] [address] 7 [place] [address] Care Team Providers Care Faculty Administrator Name Role Phone Name, Osbaldo RASCON Primary Care Provider [phone] Reason for Visit * Reason Onset Date Comments Med Refill 04/13/2024 Encounter Details Date Type Department Care Team ([facility] st Contact Info) Description 04/13/2024 Refill [facility] MEDICINE 230 [place], [place] [phone] Name, MD Osbaldo 230 [place] [address] Social History Tobacco Use Types Packs/Day Years [...] Clinical Support [facility] MEDICINE [address] [place] [address] Juliana Pinedo RN 03/28/2025 10:00 AM EDT Office Visit [facility] MEDICINE [address] [place] [address] Name, MD Osbaldo [address] [place] [address] documented as of this encounter Goals Goal [...] documented as of this encounter Care Teams Faculty Administrator Relationship Specialty Start Date End Date NameOsbaldo MD [address] [place] [address] PCP - General Family Medicine 09/02/19 documented as of this encounter
--- OUTSIDE RECORDS SUMMARY | 2025-02-12 11:20 | XMS_ITS | Encounter Summary ---
Author Organization [employer] Address [address] [place] [address] 7t [place] [address] Care Team Providers Care Net Fisher Name Role Phone Name, Osbaldo RASCON Primary Care Provider [phone] Reason for Visit * Reason Onset Date Comments Med Refill 04/29/2024 Encounter Details Date Type Department Care Team (Late st Contact Info) Description 04/29/2024 Refill [facility] MEDICINE 230 [place], [place] [phone] Lissette Christie, BREANNE 230 [place], [place] [phone] Chronic low back pain, unspecified back pain [...] Description 02/23/2025 9:00 AM EDT Clinical Support [address] [address] Juliana Pinedo RN 03/28/2025 10:00 AM EDT Office Visit [address] [address] Name, MD Osbaldo [address] [place] [address] documented as of this encounter Goals Goal [...] documented as of this encounter Care Teams Net Fisher Relationship Specialty Start Date End Date NameOsbaldo MD [address] [place] [address] PCP - General Family Medicine 09/02/19 documented as of this encounter
--- OUTSIDE RECORDS SUMMARY | 2025-02-12 11:20 | XMS_ITS | Encounter Summary ---
Author Organization [employer] Address [address] [place] [address] 7t [place] [address] Care Team Providers Care Digital Imaging Technician Name Role Phone Name, Osbaldo RASCON Primary Care Provider [phone] Lilian Baugh PharmD Unavailable [phone] Encounter Details Date Type Department Care Team (Late st Contact Info) Description 12/30/2022 Orders Only [address] [phone] Marya Weston LPN Social History Tobacco Use [...] Description 02/23/2025 9:00 AM EDT Clinical Support [address] [phone] Juliana Pinedo RN 03/28/2025 10:00 AM EDT Office Visit [address] [phone] Name, MD Osbaldo [address] [place] [address] documented as of this encounter Visit Diagnoses Not on filedocumented in this encounter Care Teams Digital Imaging Technician Relationship Specialty Start Date End Date Name, MD Osbaldo 230 [place] [address] PCP - General Family Medicine 09/02/19 Lilian Baugh PharmD 230 [place] [address] Pharmacist Internal Medicine 05/02/23 02/24/24 documented as of this encounter
--- OUTSIDE RECORDS SUMMARY | 2025-02-12 11:20 | XMS_ITS | Encounter Summary ---
Author Organization [employer] Address [address] [place] [address] 7t [place] [address] Care Team Providers Care Residential Life Director Name Role Phone Name, Osbaldo RASCON Primary Care Provider [phone] Lilian Baugh PharmD Unavailable [phone] Reason for Visit * Reason Onset Date Comments notes 02/11/2024 Encounter Details Date Type Department Care Team ([facility] st Contact Info) Description 02/11/2024 Telephone [facility] MEDICINE 230 [place], [place] [phone] Name, MD Osbaldo 230 [place] [address] notes Social History Tobacco Use Types Packs/Day [...] Jacqui a v/m there's no notes from [facility]. * Telephone Encounter - Yvan Desai RN - 02/11/2024 4:55 PM EDT Please review and advise for below request. * Telephone Encounter - Marija Cheek - 02/11/2024 2:26 PM EDT Tc from Jacqui with [facility] pain management requesting supporting documents for referral. Requesting MRI results, [facility] pain [facility] notes, and [facility] notes. Please fax to [phone] Any questions, contact Jacqui at [phone] documented in this encounter Plan of Treatment Upcoming Encounters Date Type Department Care Team (Late st Contact Info) Description 02/23/2025 9:00 AM EDT Clinical Support [facility] MEDICINE [address] [place] [address] Juliana Pinedo, TOÑO 03/28/2025 10:00 AM EDT Office Visit [facility] MEDICINE [facility] [place] [address] Name, MD Osbaldo 230 [place] [address] documented as of this encounter Goals Goal [...] documented as of this encounter Care Teams Residential Life Director Relationship Specialty Start Date End Date Name, [place] [address] PCP - General Family Medicine 09/02/19 Lilian Baugh, [place] [address] Pharmacist Internal Medicine 05/02/23 02/24/24 documented as of this encounter
--- OUTSIDE RECORDS SUMMARY | 2025-02-12 11:20 | XMS_ITS | Encounter Summary ---
Author Organization [employer] Address [address] [place] [address] 7t [place] [address] Care Team Providers Care Color Straining Bag Washer Name Role Phone Name, Osbaldo RASCON Primary Care Provider [phone] Lilian Baugh PharmD Unavailable [phone] Encounter Details Date Type Department Care Team (Late Contact Info) Description 12/11/2022 Orders Only [facility] MED & PEDS [address] [place], [place] [phone] Shruti Harrington LPN Social History Tobacco Use [...] Upcoming Encounters Date Type Department Care Team ([facility] Contact Info) Description 02/23/2025 9:00 AM EDT Clinical Support [facility] MEDICINE [address] [place] [address] [phone] Juliana Pinedo, TOÑO 03/28/2025 10:00 AM EDT Office Visit [facility] MEDICINE [address] [place] [address] [phone] Name, MD Osbaldo [address] [place] [address] [phone] documented as of this encounter Visit Diagnoses Not on filedocumented in this encounter Care Teams Color Straining Bag Washer Relationship Specialty Start Date End Date Name, MD Osbaldo 230 [place], [place] [phone] PCP - General Family Medicine 09/02/19 Lilian Baugh PharmD 230 [place] [address] Pharmacist Internal Medicine 05/02/23 02/24/24 documented as of this encounter
--- OUTSIDE RECORDS SUMMARY | 2025-02-12 11:20 | XMS_ITS | Encounter Summary ---
Author Organization [employer] Address [address] [place] [address] 7 [place] [address] Care Team Providers Care Pet Resort Concierge Name Role Phone Name, Osbaldo RASCON Primary Care Provider [phone] Reason for Visit * Reason Onset Date Comments Med Refill 03/29/2024 Encounter Details Date Type Department Care Team (Late st Contact Info) Description 03/29/2024 Refill [facility] MEDICINE 230 [place], [place] [phone] Name, MD Osbaldo 230 [place] [address] Social History Tobacco Use Types Packs/Day Years [...] Clinical Support [facility] MEDICINE [address] [place] [address] Juliana Pinedo RN 03/28/2025 10:00 AM EDT Office Visit [facility] MEDICINE [address] [place] [address] Name, MD Osbaldo [address] [place] [address] documented as of this encounter Goals Goal [...] documented as of this encounter Care Teams Pet Resort Concierge Relationship Specialty Start Date End Date NameOsbaldo MD [address] [place] [address] PCP - General Family Medicine 09/02/19 documented as of this encounter
--- OUTSIDE RECORDS SUMMARY | 2025-02-12 11:20 | XMS_ITS | Encounter Summary ---
Author Organization [employer] Address [address] [place] [address] 7t [place] [address] Care Team Providers Care Director Of Testing Name Role Phone Name, Osbaldo RASCON Primary Care Provider [phone] Lilian Baugh PharmD Unavailable [phone] Reason for Visit * Reason Onset Date Comments Appointment Request 01/02/2023 Encounter Details Date Type Department Care Team ([facility] st Contact Info) Description 01/02/2023 Telephone [facility] MED[facility]INE 230 [place], [place] [phone] Name, MD Osbaldo 230 [place] [address] Appointment Request Social History Tobacco Use Types [...] pt requesting a office visit with PCP. Faculty Research Assistant attempted to book appt but no available appt. Please contact pt at [phone] documented in this encounter Plan of Treatment Upcoming Encounters Date Type Department Care Team (Late st Contact Info) Description 02/23/2025 9:00 AM EDT Clinical Support [address] [address] Juliana Pinedo, RN 03/28/2025 10:00 AM EDT Office Visit [address] [address] Name, MD Osbaldo [address] [place] [address] documented as of this encounter Visit Diagnoses Not on filedocumented in this encounter Care Teams Director Of Testing Relationship Specialty Start Date End Date Name, MD Osbaldo [address] [place] [address] PCP - General Family Medicine 09/02/19 Lilian Baugh PharmD [address] [place] [address] Pharmacist Internal Medicine 05/02/23 02/24/24 documented as of this encounter
--- OUTSIDE RECORDS SUMMARY | 2025-02-12 11:20 | XMS_ITS | Encounter Summary ---
Author Organization [employer] Address [address] [place] [address] 7t [place] [address] Care Team Providers Care Environmental Technology Professor Name Role Phone Name, Osbaldo RASCON Primary Care Provider [phone] Lilian Baugh PharmD Unavailable [phone] Reason for Visit * Reason Comments Med Refill Encounter Details Date Type Department Care Team (Late st Contact Info) Description 03/03/2023 Refill [facility] MEDICINE 230 [place], [place] [phone] Name, MD Osbaldo 230 [place] [address] Lumbago with sciatica, left side Social History [...] Description 02/23/2025 9:00 AM EDT Clinical Support [address] [address] Juliana Pinedo, TOÑO 03/28/2025 10:00 AM EDT Office Visit [address] [address] Name, MD Osbaldo [address] [place] [address] documented as of this encounter Visit Diagnoses Diagnosis Lumbago with sciatica, left side documented in this encounter Additional Health Concerns Assessment Noted Time PHQ-9 Depression Total Score: 8 01/21/20 23 3:35 PM EDT documented as of this encounter Care Teams Environmental Technology Professor Relationship Specialty Start Date End Date Name, MD Osbaldo [address] [place] [address] PCP - General Family Medicine 09/02/19 Lilian Baugh PharmD [address] [place] [address] Pharmacist Internal Medicine 05/02/23 02/24/24 documented as of this encounter
--- OUTSIDE RECORDS SUMMARY | 2025-02-12 11:20 | XMS_ITS | Encounter Summary ---
Author Organization [employer] Address [address] [place] [address] 7t [place] [address] Care Team Providers Care Instrumentation And Controls Designer Name Role Phone Name, Osbaldo RASCON Primary Care Provider [phone] Reason for Visit * Reason Onset Date Comments Med Refill 03/29/2024 Encounter Details Date Type Department Care Team (Late st Contact Info) Description 03/29/2024 Refill [facility] MEDICINE 230 [place], [place] [phone] Betsy Nino MD 230 [place], [place] [phone] Allergic rhinitis, unspecified seasonality, unspecified trigger Social [...] Description 02/23/2025 9:00 AM EDT Clinical Support [facility] MED[facility]INE [address] [place] [address] Juliana Pinedo RN 03/28/2025 10:00 AM EDT Office Visit [address] [address] NameOsbaldo MD [address] [place] [address] documented as of this encounter Goals Goal [...] documented as of this encounter Care Teams Instrumentation And Controls Designer Relationship Specialty Start Date End Date Osbaldo Gentile MD [address] [place] [address] PCP - General Family Medicine 09/02/19 documented as of this encounter
--- OUTSIDE RECORDS SUMMARY | 2025-02-12 11:20 | XMS_ITS | Encounter Summary ---
Author Organization [employer] Address [address] [place] [address] 7t [place] [address] Care Team Providers Care Resident Advisor Name Role Phone Name, Osbaldo RASCON Primary Care Provider [phone] Lilian Baugh PharmD Unavailable [phone] Reason for Visit * Reason Onset Date Comments Med Refill 01/29/2024 Encounter Details Date Type Department Care Team (Late st Contact Info) Description 01/29/2024 Refill [facility] MEDICINE 230 [place], [place] [phone] Betsy Nino MD 230 [place], [place] [phone] Asthma, unspecified asthma severity, unspecified whether complicated, [...] Description 02/23/2025 9:00 AM EDT Clinical Support [address] [address] Juliana Pinedo RN 03/28/2025 10:00 AM EDT Office Visit [address] [address] NameOsbaldo MD [address] [place] [address] documented as of this encounter Goals Goal [...] documented as of this encounter Care Teams Resident Advisor Relationship Specialty Start Date End Date Osbaldo Gentile MD [address] [place] [address] PCP - General Family Medicine 09/02/19 Lilian Baugh, PharmD [address] [place] [address] Pharmacist Internal Medicine 05/02/23 02/24/24 documented as of this encounter
--- OUTSIDE RECORDS SUMMARY | 2025-02-12 11:20 | XMS_ITS | Encounter Summary ---
Author Organization [employer] Address [address] [place] [address] 7t [place] [address] Care Team Providers Care Elementary School Social Worker Name Role Phone Name, Osbaldo RASCON Primary Care Provider [phone] Reason for Visit * Reason Onset Date Comments Med Refill 03/29/2024 Encounter Details Date Type Department Care Team (Late st Contact Info) Description 03/29/2024 Refill [facility] 230 [place], [place] [phone] Name, MD Osbaldo 230 [place], [place] [phone] Chronic low back pain, unspecified back pain [...] Description 02/23/2025 9:00 AM EDT Clinical Support [facility] [address] [place] [address] Juliana Pinedo RN 03/28/2025 10:00 AM EDT Office Visit [facility] [address] [place] [address] Name, MD Osbaldo [address] [place] [address] documented as of this encounter Goals Goal [...] documented as of this encounter Care Teams Elementary School Social Worker Relationship Specialty Start Date End Date Name, MD Osbaldo 230 [place] [address] PCP - General Family Medicine 09/02/19 documented as of this encounter
--- OUTSIDE RECORDS SUMMARY | 2025-02-12 11:20 | XMS_ITS | Encounter Summary ---
Author Organization [employer] Address [address] [place] [address] 7 [place] [address] Care Team Providers Care Radio Frequency Technician Name Role Phone Name, Osbaldo RASCON Primary Care Provider Reason for Visit * Reason Onset Date Comments Med Refill 06/07/2024 Encounter Details Date Type Department Care Team (Late st Contact Info) Description 06/07/2024 Refill [facility] MEDICINE 230 [place], [place] [phone] Name, MD Osbaldo 230 [place] [address] Social History Tobacco Use Types Packs/Day Years [...] 9:00 AM EDT Clinical Support [facility] MEDICINE [address] [place] [address] Juliana Pinedo RN 03/28/2025 10:00 AM EDT Office Visit [facility] MEDICINE [address] [place] [address] Name, MD Osbaldo [address] [place] [address] documented as of this encounter Goals Goal [...] documented as of this encounter Care Teams Radio Frequency Technician Relationship Specialty Start Date End Date NameOsbaldo MD [address] [place] [address] PCP - General Family Medicine 09/02/19 documented as of this encounter
--- OUTSIDE RECORDS SUMMARY | 2025-02-12 11:20 | XMS_ITS | Clinical Summary ---
Author Organization [employer] Address [address] [place] [address] 7t [place] [address] Care Team Providers Care Hydrogen Plant Operator Name Role Phone Name, Osbaldo RASCON Primary Care Provider [phone] Allergies No known active allergies Medications Proventil [...] Type Department Care Team Description 01/31/2025 Refill [facility]INE 230 [place] [address] Osbaldo Gentile MD 01/27/2025 Refill [facility]INE [address] [place] [address] Osbaldo Gentile MD Allergic rhinitis, unspecified seasonality, unspecified trigger; Moderate persistent asthma, unspecified whether complicated; Chronic low back pain, unspecified back pain laterality, unspecified whether sciatica present; Gastroesophageal reflux disease, unspecified whether esophagitis present 01/27/2025 Refill [facility] [address] [place] [address] Darcie Cunha MD Chronic low back pain, unspecified back pain laterality, unspecified whether sciatica present 01/25/2025 Refill [facility] [address] [place] [address] Osbaldo Gentile MD 01/10/2025 Refill [facility] [address] [place] [address] Osbaldo Gentile MD 12/30/2024 Refill [facility] [address] [place] [address] Osbaldo Gentile MD Chronic low back pain, unspecified back pain laterality, unspecified whether sciatica present 12/27/2024 Refill [facility] [address] [place] [address] Osbaldo Gentile MD Chronic low back pain, unspecified back pain laterality, unspecified whether sciatica present 12/27/2024 Refill [facility] [address] [place] [address] Georgina Hirsch ANP Gastroesophageal reflux disease, unspecified whether esophagitis present 12/27/2024 Refill [facility] [address] [place] [address] Osbaldo Gentile MD Chronic low back pain, unspecified back pain laterality, unspecified whether sciatica present 12/27/2024 Refill [facility] [address] [place] [address] Osbaldo Gentile MD Chronic low back pain, unspecified back pain laterality, unspecified whether sciatica present; Moderate asthma with status asthmaticus, unspecified whether persistent; Allergic rhinitis, unspecified seasonality, unspecified trigger; Gastroesophageal reflux disease, unspecified whether esophagitis present 12/22/2024 Telephone [facility] [address] [place] [address] Osbaldo Gentile MD 12/15/2024 Refill [facility] [address] [place] [address] Sharmaine Lim ITZ 12/14/2024 Refill [facility] [address] [place] [address] Osbaldo Gentile MD 12/03/2024 Refill [facility] [address] [place], [place] [phone] NameOsbaldo MD Chronic low back pain, unspecified back pain laterality, unspecified whether sciatica present 12/03/2024 Refill [facility] [address] [place] [address] Osbaldo Gentile MD 11/29/2024 Refill [facility] [address] [place], [place] [phone] Osbaldo Gentile MD 11/29/2024 Refill [facility] [address] [place], [place] [phone] NameOsbaldo MD Chronic low back pain, unspecified back pain laterality, unspecified whether sciatica present 11/22/2024 Refill [facility] [address] [place] [address] NameOsbaldo MD from Last 3 Months Immunizations Immunization Administration Dates Next Due Influenza injectable quadriv [...] Description 02/23/2025 9:00 AM EDT Clinical Support [address] [address] Juliana Pinedo RN 03/28/2025 10:00 AM EDT Office Visit [facility] [address] [place] [address] Name, MD Osbaldo [address] [place] [address] Health Maintenance Due Date Last Done Comments [...] Procedure Name Priority Date/Time Associated Diagnosis Comments HEPATITIS C ANTIBODY Routine 07/22/2023 10:32 AM EDT Need for hepatitis C screening test HIV ANTIBODY/ANTIGEN ([facility] DP) Routine 07/22/2023 10:32 AM EDT LIPID PANEL, STANDARD Routine 07/22/2023 10:32 AM EDT High cholesterol from Last 3 Months or Most Recently Relevant to Health Maintenance Results * Hepatitis C Ab (07/22/2023 10:32 AM EDT) Hepatitis C Antibody Nonreactive Nonreactive [facility] Comment:Antibodies to HCV no t detected; does not exclude early acuteHCV infection. Blood Venous blood specimen / Unknown 07/22/2023 10:32 AM EDT 07/22/2023 11:23 AM EDT us Osbaldo Gentile MD LAB BLOOD ORDERABLES Final Resul t [facility] [address] [place] [phone] * HIV Ab/Ag ([facility]) (07/22/2023 10:32 AM EDT) Pathologist [facility] HIV AB/AG Nonreactive Nonreactive [facility] Comment:HIV-1 p24 Ag and/or HIV-1/HIV-2 Ab not detected.A test result that is nonreactive does not exclude thepossibility of exposure to or infection with HIV-1 and/orHIV-2. Nonreactive results in this assay for individualswith prior exposure to HIV-1 and/or HIV-2 may be due toantigen and antibody levels that are below the limit ofdetection of this assay.The JUNIQE HIV Ag/Ab Combo assay result andsupplemental assay results should be interpreted inconjunction with the patient's clinical presentation,history and other laboratory results. If the results areinconsistent with clinical evidence, additional testing issuggested to confirm the result. 07/22/2023 10:3 2 AM EDT 07/22/2023 11:23 AM EDT us Osbaldo Name MD LAB BLOOD ORDERABLES Final Resul t [facility] [address] [place] [phone] * (ABNORMAL) Lipid Panel, Standard (07/22/2023 10:32 AM EDT) Triglycerides 119 <150 mg/dL [facility] Comment:Desirable Triglyceri de: less than 150 mg/dLBorderline High Triglyceride 150-199 mg/dLHigh Triglyceride: 200-499 mg/dLVery High Triglyceride: greater than or equal to 5OO mg/dL Cholesterol 203(H) <200 mg/dL [facility] Comment:Desirable Cholestero l: less than 200 mg/dLBorderline High Cholesterol: 200-239 mg/dLHigh Cholesterol: greater than 239 mg/dL LDL Cholesterol Calculated 129(H) <100 mg/dL [facility] Comment:Desirable LDL: less than 100 mg/dLNear Optimal/Above Optimal LDL: 110- 129 mg/dLBorderline High LDL: 130-159 mg/dLHigh LDL: 160-189 mg/dLVery High LDL: greater than or equal to 190 mg/dL HDL Cholesterol 51 >40 mg/dL [facility] Comment:Desirable HDL: great er than 40 mg/dL Note: This HDL assay may give artificially low results in patients with liver disease. Blood Venous blood specimen / Unknown 07/22/2023 10:32 AM EDT 07/22/2023 11:23 AM EDT us Osbaldo Name LAB BLOOD ORDERABLES Final Resul t [facility] [address] [place] [phone] [phone] from Last 3 Months or Most Recently Relevant to Health Maintenance Insurance [facility] CHOICE Care Teams Hydrogen Plant Operator Relationship Specialty Start Date End Date Name, MD Osbaldo [address] [place] [address] PCP - General Family Medicine 09/02/19
--- OUTSIDE RECORDS SUMMARY | 2025-02-12 11:20 | XMS_ITS | Encounter Summary ---
Author Organization [employer] Address [address] [place] [address] 7t [place] [address] Care Team Providers Care Control Systems Specialist Name Role Phone Name, Osbaldo RASCON Primary Care Provider [phone] Reason for Visit * Reason Onset Date Comments Med Refill 07/22/2024 Encounter Details Date Type Department Care Team (Late st Contact Info) Description 07/22/2024 Refill [facility] MEDICINE 230 [place], [place] [phone] Betsy Nino MD 230 [place], [place] [phone] Allergic rhinitis, unspecified seasonality, unspecified trigger Social [...] 9:00 AM EDT Clinical Support [facility] MEDICINE [address] [place] [address] Juliana Pinedo RN 03/28/2025 10:00 AM EDT Office Visit [address] [address] NameOsbaldo MD [address] [place] [address] documented as of this encounter Goals Goal [...] documented as of this encounter Care Teams Control Systems Specialist Relationship Specialty Start Date End Date Osbaldo Gentile MD [address] [place] [address] PCP - General Family Medicine 09/02/19 documented as of this encounter
--- OUTSIDE RECORDS SUMMARY | 2025-02-12 11:20 | XMS_ITS | Encounter Summary ---
Author Organization [employer] Address [address] [place] [address] 7t [place] [address] Care Team Providers Care Electric Organ Assembler And Checker Name Role Phone Name, Osbaldo RASCON Primary Care Provider [phone] Lilian Baugh PharmD Unavailable [phone] Reason for Visit * Reason Onset Date Comments Med Refill 01/29/2024 Encounter Details Date Type Department Care Team (Late st Contact Info) Description 01/29/2024 Refill [facility] MEDICINE 230 [place], [place] [phone] Name, MD Osbaldo 230 [place] [address] Social History Tobacco Use Types Packs/Day Years [...] Description 02/23/2025 9:00 AM EDT Clinical Support [facility]INE [address] [place] [address] Juliana Pinedo RN 03/28/2025 10:00 AM EDT Office Visit [address] [address] Name, MD Osbaldo [address] [place] [address] documented as of this encounter Goals Goal [...] as of this encounter Care Teams Electric Organ Assembler And Checker Relationship Specialty Start Date End Date Name, MD Osbaldo [address] [place] [address] PCP - General Family Medicine 09/02/19 Kinjal Baughsa, PharmD [address] [place] [address] Pharmacist Internal Medicine 05/02/23 02/24/24 documented as of this encounter
--- OUTSIDE RECORDS SUMMARY | 2025-02-12 11:20 | XMS_ITS | Encounter Summary ---
Author Organization [employer] Address [address] [place] [address] 7t [place] [address] Care Team Providers Care Topline Beading Machine Tender Name Role Phone Name, Osbaldo RASCON Primary Care Provider [phone] Lilian Baugh PharmD Unavailable [phone] Reason for Visit * Reason Onset Date Comments Med Refill 01/23/2024 Encounter Details Date Type Department Care Team (Late st Contact Info) Description 01/23/2024 Refill [facility] MEDICINE 230 [place], [place] [phone] Name, MD Osbaldo 230 [place] [address] Social History Tobacco Use Types Packs/Day Years [...] Description 02/23/2025 9:00 AM EDT Clinical Support [facility] [address] [place] [address] Juliana Pinedo RN 03/28/2025 10:00 AM EDT Office Visit [address] [address] Name, MD Osbaldo [address] [place] [address] documented as of this encounter Goals Goal [...] documented as of this encounter Care Teams Topline Beading Machine Tender Relationship Specialty Start Date End Date Name, MD Osbaldo [address] [place] [address] PCP - General Family Medicine 09/02/19 Kinjal Baughsa, PharmD [address] [place] [address] Pharmacist Internal Medicine 05/02/23 02/24/24 documented as of this encounter
--- OUTSIDE RECORDS SUMMARY | 2025-02-12 11:20 | XMS_ITS | Encounter Summary ---
Author Organization [email or web address] Address [address] [place] [address] 7t [place] [address] Care Team Providers Care Oracle Reports Developer Name Role Phone Name, Osbaldo RASCON Primary Care Provider [phone] Lilian Baugh PharmD Unavailable [phone] Reason for Visit * Reason Onset Date Comments Med Refill 01/29/2024 Encounter Details Date Type Department Care Team ([facility] st Contact Info) Description 01/29/2024 Refill [facility] 505 [place], [place] [phone] Abril Brooks FNP [address] [place] [address] Social History Tobacco Use Types Packs/Day Years [...] Description 02/23/2025 9:00 AM EDT Clinical Support [facility] MEDICINE [address] [place] [address] Juliana Pinedo RN 03/28/2025 10:00 AM EDT Office Visit [facility] [address] [place] [address] Name, MD Osbaldo [address] [place] [address] documented as of this encounter Goals Goal [...] documented as of this encounter Care Teams Oracle Reports Developer Relationship Specialty Start Date End Date Osbaldo Gentile MD [address] [place] [address] PCP - General Family Medicine 09/02/19 Lilian Baugh, PharmD [address] [place] [address] Pharmacist Internal Medicine 05/02/23 02/24/24 documented as of this encounter
--- OUTSIDE RECORDS SUMMARY | 2025-02-12 11:20 | XMS_ITS | Encounter Summary ---
Author Organization [employer] Address [address] [place] [address] 7t [place] [address] Care Team Providers Care Stone Polisher Name Role Phone Name, Osbaldo RASCON Primary Care Provider [phone] Reason for Visit * Reason Onset Date Comments Med Refill 06/28/2024 Encounter Details Date Type Department Care Team (Late st Contact Info) Description 06/28/2024 Refill [facility] MEDICINE 230 [place], [place] [phone] Name, MD Osbaldo 230 [place], [place] [phone] Moderate asthma with status asthmaticus, unspecified whether [...] Description 02/23/2025 9:00 AM EDT Clinical Support [address] [address] Juliana Pinedo RN 03/28/2025 10:00 AM EDT Office Visit [facility]INE [address] [place] [address] Name, MD Osbaldo [address] [place] [address] documented as of this encounter Goals Goal [...] documented as of this encounter Care Teams Stone Polisher Relationship Specialty Start Date End Date Osbaldo Gentile MD [address] [place] [address] PCP - General Family Medicine 09/02/19 documented as of this encounter
--- OUTSIDE RECORDS SUMMARY | 2025-02-12 11:20 | XMS_ITS | Encounter Summary ---
Author Organization [employer] Address [address] [place] [address] 7t [place] [address] Care Team Providers Care Garage Construction Equipment Mechanic Name Role Phone Name, Osbaldo RASCON Primary Care Provider [phone] Reason for Visit * Reason Onset Date Comments Med Refill 04/22/2024 Encounter Details Date Type Department Care Team ([facility] st Contact Info) Description 04/22/2024 Refill [facility] [address] [place], [place] [phone] Name, MD Osbaldo [address] [place] [address] Essential (primary) hypertension Social History Tobacco Use [...] 02/23/2025 9:00 AM EDT Clinical Support [address] [address] Juliana Pinedo RN 03/28/2025 10:00 AM EDT Office Visit [address] [address] Osbaldo Gentile MD [address] [place] [id number] documented as of this encounter Goals Goal Patient Goal Type Associated Problems Recent Progress Patient-Stated? Author Record your blood pressure once per day Blood Pressure No Lilina Baugh, PharmD Blood Pressure < 140/90 Blood Pressure 134/84( 025 9:22 AM EST) No Lilian Baugh PharmD documented as of this encounter Visit Diagnoses Diagnosis Essential (primary) hypertension Unspecified essential hypertension documented in this encounter Additional Health Concerns Assessment Noted Time PHQ-9 Depression Total Score: 0 02/09/20 24 3:17 PM EDT documented as of this encounter Care Teams Garage Construction Equipment Mechanic Relationship Specialty Start Date End Date Osbaldo Gentile MD [address] [place] [id number] PCP - General Family Medicine 09/02/19 documented as of this encounter
--- OUTSIDE RECORDS SUMMARY | 2025-02-12 11:20 | XMS_ITS | Encounter Summary ---
Author Organization [employer] Address [address] [place] [address] 7t [place] [address] Care Team Providers Care Edm Operator Name Role Phone Name, Osbaldo RASCON Primary Care Provider [phone] Reason for Visit * Reason Onset Date Comments Med Refill 07/22/2024 Encounter Details Date Type Department Care Team (Late st Contact Info) Description 07/22/2024 Refill [facility] [address] [place], [place] [phone] Georgina Hirsch, ANP [address] [place] [address] Gastroesophageal reflux disease, unspecified whether esophagitis present [...] Description 02/23/2025 9:00 AM EDT Clinical Support [facility] [address] [place] [address] Juliana Pinedo RN 03/28/2025 10:00 AM EDT Office Visit [address] [address] NameOsbaldo MD [address] [place] [phone] documented as of this encounter Goals Goal [...] documented as of this encounter Care Teams Edm Operator Relationship Specialty Start Date End Date Osbaldo Gentile MD [address] [place] [address] PCP - General Family Medicine 09/02/19 documented as of this encounter
[2025-02-12 13:47] LABS: Estimated Average Glucose 111 mg/dL; Hemoglobin A1C 143.1068 umol/L; Hemoglobin A1c % 5.5 % (<6.0); Total Hemoglobin (HGBA1C) 3858.0781 umol/L
== END 2025-02-12 11:18 | disposition home or self-care (01) ==
LOC: HO.HMGCLDS 11:17
PROVIDERS: PCP Internal Medicine Geriatric Medicine; Visit Provider Nurse Practitioner Family
DX: N52.9 Male erectile dysfunction, unspecified (principal); R35.1 Nocturia; E11.9 Type 2 diabetes mellitus without complications; Z12.5 Encounter for screening for malignant neoplasm of prostate
CPT/HCPCS: 36415; 83036; 84153

== ENCOUNTER 2025-03-28 10:14 | Outpatient (REF) | payer OTHER, SELFPAY ==
--- OUTSIDE RECORDS SUMMARY | 2025-03-28 10:52 | XMS_ITS | Encounter Summary ---
Author Organization [employer] Address [address] [facility] 7t [place] [address] Care Team Providers Care Dopeman Name Role Phone Name, Osbaldo RASCON Primary Care Provider [phone] Reason for Visit * Reason Onset Date Comments Med Refill 01/10/2025 Encounter Details Date Type Department Care Team ([facility] st Contact Info) Description 01/10/2025 Refill [facility] [address] [place], [place] [phone] Name, MD Osbaldo [address] [place] [address] Social History Tobacco Use Types Packs/Day Years [...] Care Team (Late st Contact Info) Description 06/30/2025 9:00 AM EDT Clinical Support [facility] [address] [place] [address] Juliana Pinedo, RN documented as of this encounter Goals Goal Patient Goal Type Associated Problems Recent Progress Patient-Stated? Author Record your blood pressure once per day Blood Pressure No Puia, Lilian, PharmD Blood Pressure < 140/90 Blood Pressure 142/89( 025 9:57 AM EDT) No Puia, Lilian, PharmD documented as of this encounter Visit Diagnoses Not on filedocumented in this encounter Additional Health Concerns Assessment Noted Time PHQ-9 Depression Total Score: 0 02/09/20 24 3:17 PM EDT documented as of this encounter Care Teams Dopeman Relationship Specialty Start Date End Date Name, MD Osbaldo [address] [place] [address] PCP - General Family Medicine 09/02/19 documented as of this encounter
[2025-03-28 11:07] LABS: MANUAL DIFF FLAG NO
[2025-03-28 11:21] LABS: Basophils Percent Auto 0.5 % (0-2); Eosinophils Absolute Auto 0.1 X10*3/uL (0.0-0.4); Eosinophils Percent Auto 1.1 % (0-4); Hematocrit 45.1 % (42.0-52.0); Hemoglobin 14.8 g/dl (14.0-18.0); Imm Gran Abs Auto 0.03 X10*3/uL (0.00-0.03); Imm Gran Pct Auto 0.5 % (0.0-0.4); Lymphocytes Absolute Auto 1.5 X10*3/uL (1.2-4.9); Lymphocytes Percent Auto 22.5 % (20-40); Mean Corpuscular HGB Conc 32.8 g/dl (31.0-36.0); Mean Corpuscular Hemoglobin 27.4 pg (27.0-33.0); Mean Corpuscular Volume 83.5 fL (80.0-98.0); Monocytes Absolute Auto 0.6 X10*3/uL (0.1-1.2); Monocytes Percent Auto 9.8 % (2-11); Neutrophils Absolute Auto 4.2 x10*3/uL (2.0-8.3); Neutrophils Percent Auto 65.6 % (45-73); Platelet Count 191 X10*3/uL (160-400); Red Cell Distribution Width 14.7 % (11.0-16.0); White Blood Count 6.4 X10*3/uL (4.8-10.8)
[2025-03-28 11:54] LABS: Alanine Aminotransferase 35 U/L (0-40); Albumin Level 4.6 g/dL (3.5-5.0); Alkaline Phosphatase 99 U/L (39-117); Anion Gap 11 (12-20); Aspartate Amino Transferase 30 U/L (5-37); Bilirubin Total 0.5 mg/dL (0.0-1.0); Blood Urea Nitrogen 15 mg/dL (9-16); Carbon Dioxide 25 mmol/L (22-29); Chloride 109 mmol/L (96-108); Cholesterol 206 mg/dL (<200); Estimated Glomerular Filt Rate > 60; Glucose Random 105 mg/dL (60-115); HDL Cholesterol 45 mg/dL (>40); LDL Cholesterol Calculated 139 mg/dL (<100); Potassium 3.6 mmol/L (3.3-5.1); Sodium 141 mmol/L (135-145); Total Protein 7.3 g/dL (6.5-8.0); Triglycerides 113 mg/dL (<150)
== END 2025-03-28 10:15 | disposition home or self-care (01) ==
LOC: HO.HHCL 10:14
PROVIDERS: PCP Internal Medicine Geriatric Medicine; Visit Provider Internal Medicine Geriatric Medicine
DX: Z00.00 Encounter for general adult medical examination without abnormal findings (principal); E78.00 Pure hypercholesterolemia, unspecified; I10 Essential (primary) hypertension
CPT/HCPCS: 36415; 80053; 80061; 85025

== ENCOUNTER 2025-04-05 15:51 | Outpatient (REF) | payer OTHER, SELFPAY ==
--- NOTE | ~2025-04-05 | US_ITS ---
EXAMINATION: US RETROPERITONEUM HISTORY: R35.1 - Nocturia TECHNIQUE: Real-time grayscale ultrasound imaging of the kidneys was performed and images were reviewed. COMPARISON: There are no prior studies available for comparison. FINDINGS: Right kidney: The right kidney measures 12.1 x 5.2 x 5.9 cm. Renal parenchymal echotexture and thickness are normal. There are no masses. There is no hydronephrosis or renal calculi. Left Kidney: The left kidney measures 12.9 x 6.7 x 5.9 cm. Renal parenchymal echotexture and thickness are normal. There are no masses. There is no hydronephrosis or renal calculi. The urinary bladder is unremarkable. Bilateral ureteral jets are identified. Before voiding, the urinary bladder measured 10.2 x 7.2 x 8.5 cm, for an estimated volume of 328 mL. After voiding, the urinary bladder measured 5.8 x 2.6 x 3.1 cm, for an estimated volume of 24.5 mL. US/US retroperitoneal comp IMPRESSION: Unremarkable retroperitoneal ultrasound. Post void bladder residual of 24.5 mL. Electronically signed by: Sriram Martinez MD 04/06/2025 06:59 AM EDT
--- OUTSIDE RECORDS SUMMARY | 2025-04-05 16:05 | XMS_ITS | Clinical Summary ---
Author Organization [facility] Address [address] [place] [address] Care Team Providers Care Electronic Warfare Officer Name Role Phone Ariana Haro MD Primary [...] 64 11/11/2016 10:59 PM EST Temperature 36.8 C (98.3 F) 11/11/2016 10:59 PM EST Respiratory Rate 17 11/11/2016 10:59 PM EST Oxygen Saturation 98% 11/11/2016 10:59 PM EST Inhaled Oxygen Concentration - - Weight - - Height - - Body Mass Index - - Plan of Treatment Health Maintenance Due Date Last Done Comments Hepatitis B Vaccines (1 3 - 3-dose series) 1971 Hepatitis C Screening 1971 COVID-19 Vaccine (#1) 1971 Depression Screening 1983 Preventative Health Evaluation 1989 DTap / Tdap / Td (1 - Tdap) 1990 Colon Cancer Screening (Colonoscopy) 2016 Shingrix-Zoster Vaccine (1 of 2) 2021 Influenza Vaccine (#1) 2025 Pneumococcal Vaccine Aged Out No long er eligible based on patient's age to complete this topic RSV Ped < 20 months Aged Out No longe r eligible based on patient's age to complete this topic Care Teams Electronic Warfare Officer Relationship Specialty Start Date End Date Ariana Haro MD PCP - General 08/15/17
--- OUTSIDE RECORDS SUMMARY | 2025-04-05 16:05 | XMS_ITS | Encounter Summary ---
Author Organization [employer] Address [address] [facility] 7t [place] [address] Care Team Providers Care Station Gateman Name Role Phone Name, Osbaldo RASCON Primary Care Provider [phone] Reason for Visit * Reason Onset Date Comments Med Refill 01/10/2025 Encounter Details Date Type Department Care Team ([facility] st Contact Info) Description 01/10/2025 Refill [facility] [address] [place], [place] [phone] Name, MD Osbaldo [address] [place] [address] Social History Tobacco Use Types Packs/Day Years [...] Description 06/30/2025 9:00 AM EDT Clinical Support [facility] [address] [place] [address] Juliana Pinedo, RN documented as of this [...] documented as of this encounter Care Teams Station Gateman Relationship Specialty Start Date End Date Name, MD Osbaldo [address] [place] [address] PCP - General Family Medicine 09/02/19 documented as of this encounter
--- OUTSIDE RECORDS SUMMARY | 2025-04-05 16:05 | XMS_ITS | Clinical Summary ---
Author Organization [facility] ity Address [address] [place] [address] Care Team Providers Care Rag Cutting Machine Operator Name Role Phone Ariana Haro MD Primary [...] 2023-2 5 season) 2024 Influenza Vaccine (#1) 2025 09/13/2015 DTaP,Tdap,and Td Vaccines (2 - Td [...] age to complete this topic Care Teams Rag Cutting Machine Operator Relationship Specialty Start Date End Date Ariana Haro MD [address] [place] [address] PCP - General 08/15/17
== END 2025-04-05 15:52 | disposition home or self-care (01) ==
LOC: HO.US 15:51
PROVIDERS: PCP Internal Medicine Geriatric Medicine; Visit Provider Nurse Practitioner Family
DX: N52.9 Male erectile dysfunction, unspecified (principal); R35.1 Nocturia
CPT/HCPCS: 76770

== ENCOUNTER → 2025-04-05 15:52 | Outpatient (BNV) | payer OTHER, SELFPAY | PROVIDERS: PCP Internal Medicine Geriatric Medicine; Visit Provider Radiology Diagnostic Radiology | DX: R39.14 Feeling of incomplete bladder emptying (principal) | CPT/HCPCS: 76770 ==

== ENCOUNTER 2025-04-21 07:40 | Outpatient (AMB) | payer OTHER, SELFPAY ==
--- OUTSIDE RECORDS SUMMARY | 2025-04-21 07:43 | XMS_ITS | Clinical Summary ---
Author Organization [facility] Address [address] [place] [address] Care Team Providers Care Polisher And Sander Name Role Phone Ariana Haro MD Primary [...] age to complete this topic Care Teams Polisher And Sander Relationship Specialty Start Date End Date Ariana Haro MD PCP - General 08/15/17
--- OUTSIDE RECORDS SUMMARY | 2025-04-21 07:43 | XMS_ITS | Clinical Summary ---
Author Organization [facility] ity Address [address] [place] [address] Care Team Providers Care Qualification Engineer Name Role Phone Ariana Haro MD Primary [...] Vaccine ( - 2023-2 5 season) 2024 Depression Screening 09/29/2024 Influenza Vaccine (#1) 2025 09/13/2015 DTaP,Tdap,and Td [...] age to complete this topic Care Teams Qualification Engineer Relationship Specialty Start Date End Date Ariana Haro MD [address] [place] [address] PCP - General 08/15/17
--- OUTSIDE RECORDS SUMMARY | 2025-04-21 07:43 | XMS_ITS | Encounter Summary ---
Author Organization [employer] Address [address] [facility] 7t [place] [address] Care Team Providers Care Trim Crew Supervisor Name Role Phone Name, Osbaldo RASCON Primary Care Provider [phone] Reason for Visit * Reason Onset Date Comments Med Refill 01/10/2025 Encounter Details Date Type Department Care Team ([facility] st Contact Info) Description 01/10/2025 Refill [facility] [address] [place], [place] [phone] Name, MD Osbaldo [address] [place] [address] Social History Tobacco Use Types Packs/Day Years [...] Description 06/30/2025 9:00 AM EDT Clinical Support [facility] [address] [place] [address] Juliana Pinedo, RN documented as of this [...] documented as of this encounter Care Teams Trim Crew Supervisor Relationship Specialty Start Date End Date Name, MD Osbaldo [address] [place] [address] PCP - General Family Medicine 09/02/19 documented as of this encounter
--- NOTE | 2025-04-21 07:44 | MHC.OFFVIS ---
Intake Visit Reasons: 2m/US/PSA(set) Intake Note: Patient presents today for follow up on: nocturia, erectile dysfunction, ultrasound and lab results Imaging Completed: 04/05/25 PSA: 0.60; HGB A1C: 5.5 Urology Medications: tamsuosin Blood Thinner: none PVR: 78ml's Supervisor Of Research Required: No Accompanied by: Self / Same As Patient Allergies No Known Allergies Allergy (Verified 04/21/25 08:20) Medication List - Last Reconciled 04/21/25 by TONI Judd- albuterol sulfate 2.5 mg inhalation Q20M deqhfbvhyv-pgrfnofkr-qiahuyycx 5-160-25 mg 1 tab PO DAILY gabapentin 300 mg PO TID mhlexgnoqqft-elqhtjnn-pgpjmz 1 tab PO DAILY oxycodone-acetaminophen 10-325 mg 1 tab PO Q6H PRN tadalafil (Cialis) 10 mg PO .PRN PRN 30 days tadalafil (Cialis) 5 mg PO DAILY 90 days terazosin 5 mg PO BEDTIME 30 days HPI Comments Details: Hank is a 55-year-old male patient of Dr. Gentile. He has a past medical history of hypertension, anxiety, depression, and lumbar radiculopathy. He presents to the office today for follow-up of his erectile dysfunction as well as nocturia. Of note, patient was seen approximately 2 months ago as a new patient at which time a retroperitoneal ultrasound, PSA, and A1c was ordered for further assessment evaluation. These results were reviewed and communicated with the patient today. 04/22 bilateral kidneys are normal in echotexture and thickness. There are no renal masses, hydronephrosis, or renal calculi noted bilaterally. Pre void bladder volume is approximately 330 mL. Postvoid bladder volume is approximately 25 mL. Prostate measures 8.5 mL. He was previously given tamsulosin by PCP in during initial visit was unsure if this was helpful. However in discussion with the patient today he does not feel this has been helpful. He continues to experience episodes of nocturia 2-4 times per night. However he does endorse to be drinking fluids prior to bed. We did discussed importance of limiting fluids 2-3 hours prior to bed to decrease episodes of nocturia. He is unsure as if p.r.n. dosing of Cialis is helpful in maintaining his erections as he has not yet started the medication. In office urinalysis results reviewed with the patient today. PVR 78 mL. He denies urinary urgency, urinary frequency, incontinence, hematuria, dysuria, foul smelling urine, changes to urinary stream, flank pain, fever, and or chills. We discussed at length potential causes of nocturia as well as erectile dysfunction and further treatment options of these urological conditions as well as risks and benefits of these treatment options. We did discuss obtaining sleep study for further assessment evaluation. He would like to think about this He denies any previous trauma. All questions were answered. PSAs are as follows: PSA: 10/18 0.4, 02/20 0.6 A1c: 02/20 5.5 PFSH Medical History Depression with anxiety Hypertension Chronic sacroiliac joint pain Chronic left-sided lumbar radiculopathy Social History (Reviewed 04/21/25 @ 08:00 by Clary Bhakta [facility]) Alcohol intake: current Alcohol type: wine Patient Tobacco Use Status: Never used Tobacco Review of Systems Const All systems reviewed & are unremarkable except as noted in HPI and below Physical Exam Const General: cooperative, healthy appearing, comfortable, no acute distress, well developed, alert and awake Nutritional Appearance: overweight Orientation/consciousness: patient oriented x3 Limitations: no limitations HEENT Head: Yes normal to inspection, Yes normocephalic and Yes atraumatic Ears: hearing grossly normal bilaterally Eyes General: appearance normal, both eyes and all related structures Neck Neck: Yes normal visual inspection and Yes trachea midline Chest Chest palpation & inspection: normal inspection of the chest Resp Effort & Inspection: normal respiratory effort and able to speak in complete sentences Cardio Rate: regular rate GI Inspection: Yes normal to inspection General: Yes no CVA tenderness Back/Spine/Pelvis Back: no CVA tenderness Skin General skin exam: no rashes or lesions noted Neuro General: patient oriented x3 Extrem General: Yes normal to inspection Psych Appearance: grossly normal and well kempt Mental Status: mental status grossly normal Speech and movement: Normal speech and movement present and Clear speech present Affect: normal affect Attitude: cooperative Thought process: Normal thought process present Thought content: Normal thought content present Insight: Fair insight present (Psych) Judgement: Fair judgement present (Psych) Office Procedures Post Void Residual Post Residual Void Post Void Residual (PVR): 78 [id number]-[id number] Void Residual by ultrasound Results AMB Urinalysis, Automated UA Leukoctes 0 Alfred/uL Last Edit by Shayracielprerna Haquerichard [facility] on 04/21/25 08:02 UA Nitrite Last Edit by Clary Shabnamrichard, [facility] on 04/21/25 08:02 UA Urobilinogen 0.2 mg/dL Last Edit by Molinaprerna Bhakta, [facility] on 04/21/25 08:02 UA Protein 0 mg/dL Last Edit by Molinaprerna Haque, [facility] on 04/21/25 08:02 UA pH 6.5 Last Edit by Clary Shabnam, [facility] on 04/21/25 08:02 UA Blood 0 Dannie/uL Last Edit by Molinaprerna Haquerichard, [facility] on 04/21/25 08:02 UA Specific [place] 1.015 Last Edit by Clary Shabnam, [facility] on 04/21/25 08:02 UA Ketone Last Edit by Clary Shabnam, [facility] on 04/21/25 08:02 UA Bilirubin 0 mg/dL Last Edit by Clary Shabnam, [facility] on 04/21/25 08:02 UA Glucose 0 mg/dL Last Edit by Clary Shabnamrichard, [facility] on 04/21/25 08:02 Results Reviewed Results Reviewed: Laboratory Last Values Urine pH (Auto) 6.5 04/21/25 08:00 Specific [place] (Auto) 1.015 04/21/25 08:00 Urine Protein (Auto) 0 mg/dL 04/21/25 08:00 Glucose (UA)(Auto) 0 mg/dL 04/21/25 08:00 Urine Blood (Auto) 0 Adnnie/uL 04/21/25 08:00 Urine Bilirubin (Auto) 0 mg/dL 04/21/25 08:00 Urine Urobilinogen (Auto) 0.2 mg/dL 04/21/25 08:00 Leukocyte Esterase (Auto) 0 Alfred/uL 04/21/25 08:00 Date of Service: 04/05/25 Procedure(s): US retroperitoneal comp FINDINGS: Right kidney: The right kidney measures 12.1 x 5.2 x 5.9 cm. Renal parenchymal echotexture and thickness are normal. There are no masses. There is no hydronephrosis or renal calculi. Left Kidney: The left kidney measures 12.9 x 6.7 x 5.9 cm. Renal parenchymal echotexture and thickness are normal. There are no masses. There is no hydronephrosis or renal calculi. The urinary bladder is unremarkable. Bilateral ureteral jets are identified. Before voiding, the urinary bladder measured 10.2 x 7.2 x 8.5 cm, for an estimated volume of 328 mL. After voiding, the urinary bladder measured 5.8 x 2.6 x 3.1 cm, for an estimated volume of 24.5 mL. IMPRESSION: Unremarkable retroperitoneal ultrasound. Post void bladder residual of 24.5 mL. Assessment & Plan Assessment & Plan (1) Nocturia: Code(s): R35.1 - Nocturia Category: Medical (2) Erectile dysfunction: Code(s): N52.9 - Male erectile dysfunction, unspecified Category: Medical Plan In office urinalysis results with the patient today; as noted above. PVR 78 mL. Recent PSA and A1c results reviewed with the patient today; as noted above. Recent retroperitoneal ultrasound results with the patient today; as noted above. Stop Flomax. Start terazosin as discussed and prescribed. We discussed potential causes of nocturia as well as ED and further treatment options and risks and benefits of these treatment options. All questions were answered. We discussed importance of limiting fluids 2-3 hours prior to bed to decrease episodes of nocturia. We did discussed obtaining sleep study for further assessment evaluation; he will think about this. We discussed lifestyle modifications to assist with ED. Follow-up in 3 months with PVR; or sooner with any issues, concerns, and or questions. Orders: Orders AMB Urinalysis Automated Today Z13.9 - Encounter for screening, unspecified AMB Post Void Residual by ultrasound Today R35.1 - Nocturia Medications: New terazosin 5 mg PO BEDTIME 30 caps 3RF 30 days N40.1 - Benign prostatic hyperplasia with lower urinary tract symptoms, R35.0 - Frequency of micturition Refilled tadalafil (Cialis) Take 1-2 tablets 1 hour prior to sexual activity; not to exceed more than 3 times per week [id number] [facility] [id number] Member [id number] 10 mg PO .PRN PRN 20 tabs 3RF sexual activity 30 days tadalafil (Cialis) [id number] [facility] [id number] Member [id number] 5 mg PO DAILY 90 tabs 1RF 90 days Patient Instructions: The patient had an opportunity to ask questions regarding the treatment plan. All questions were answered. Physical exam, labs, and imaging were discussed and reviewed in detail. As well as risks, benefits, and discussion of treatment choices. No major barriers to understanding were identified. The patient expressed understanding and agreement with the above treatment plan. The patient was made aware they should contact our office by phone for worsening of their current condition, the appearance of new symptoms, or with any questions or concerns. Compliance is encouraged with any medications and follow up testing that is ordered. It is a privilege to be allowed the opportunity to participate in? your urological care.? Again, if you have any questions or concerns If you have any questions or concerns please do not hesitate to contact me. The office is [phone]. This note is constructed using voice recognition software. While every effort has been made to ensure accuracy pathology transcriptionist errors may have been included. Yours sincerely, JAYLIN Judd Coding Level of Care Code Est Pt Level 4 (43560) Diagnoses Nocturia R35.1 Erectile dysfunction N52.9 CPT Codes Post Residual Void - PVR CPT Code: 74061-Fsvc Void Residual by ultrasound ([id number])
== END 2025-04-21 08:10 | disposition home or self-care (01) ==
LOC: HO.HUSH 07:40
PROVIDERS: PCP Internal Medicine Geriatric Medicine; Visit Provider Nurse Practitioner Family
DX: R35.1 Nocturia (principal); N52.9 Male erectile dysfunction, unspecified; Z13.9 Encounter for screening, unspecified
CPT/HCPCS: 99214

== ENCOUNTER → 2025-04-21 07:40 | Outpatient (BNVA) | payer OTHER, SELFPAY | PROVIDERS: PCP Internal Medicine Geriatric Medicine; Visit Provider Nurse Practitioner Family | DX: R35.1 Nocturia (principal); N52.9 Male erectile dysfunction, unspecified | CPT/HCPCS: 51798; 81003 ==

== ENCOUNTER 2025-07-18 17:50 | Outpatient (REF) | payer OTHER, SELFPAY ==
--- OUTSIDE RECORDS SUMMARY | 2025-07-18 08:30 | XMS_ITS | Encounter Summary ---
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 Encounter Details Date Type Department Care Team (Latest Contact Info) Description 07/18/2025 8:30 AM EDT Clinical Support [facility] [address] [place] [phone] Juliana Pinedo RN Long-term current use of opiate analgesic (Primary Dx) Social History Tobacco Use Types Packs/Day Years Used Date Smoking Tobacco: Never Alcohol Use Standard Drinks/Week Comments Yes 0 (1 standard drink = 0.6 oz pur e alcohol) occassional Depression Answer Date Recorded Patient Health Questionnaire-9 Score 7 03/28/2025 Patient Health Questionnaire-9 Score 7 03/28/2025 Last PHQ-9: Questionnaire Data Not on file 0 03/28/2025 Housing Stability Answer Date Recorded What is your housing situation today? I have housing today, but I am worried about losing housing in the future 03/28/[address] you li ve. Do you have problems with any of the following? None of the above 03/28/2025 Food Insecurity Answer Date Recorded Within the past 12 months, y ou worried that your food would run out before you got money to buy more: Sometimes True 2024 Within the past 12 months,th e food you bought just didn't last and you didn't have enough money to get more: Sometimes True 03/28/2025 Transportation Answer Date Recorded In the past 12 months, has l ack of transportation kept you from medical appts, meetings, work or from getting things needed for daily living? No 03/28/2025 Utilities Answer Date Recorded In the past 12 months, has t he electric, gas, oil or water company threatened to shut off services in your home? Yes 03/28/2025 Depression Answer Date Recorded Patient Health Questionnaire-2 Score 3 03/28/2025 Internet Access Answer Date Recorded Internet Access Q1 Yes 03/28/2025 Internet Access Q2 Not on file 03/28/2025 Sex and Gender Information Value Date Recorded Sex Assigned at Male 07/29/2022 10:31 AM EDT Legal Sex Male 10:31 AM EDT Gender Identity Male 07/29/2022 10:31 AM EDT Sexual Orientation Straight 07/29/2022 10 :31 AM EDT documented as of this encounter Progress Notes * Juliana Pinedo RN - 07/18/2025 8:30 AM EDT SUBJECTIVE: Hank Bess is a 55 y.o. 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 Pt stated he uses 3 - 5 doses a day. The patient last took Percocet on: 07/18/25 Medication is: 60% % effective at alleviating pain. Pt shared he had cortisone injection done 07/08/25 and is supposed to go back to pain management 07/26/25 - then likely will be released back to his job, light [employer]/with restrictions. 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 Reviewed Percocet order. Pt stated he had testing done recently and that made his back pain much worse he was taking 5 pills within 24hrs. Reminded patient, he needs to speak with PCP prior to takinghis Percocet differently then ordered and that he wont be able to get early refill. Pt aware refillnot due until 07/22/25. Vital Signs Pain Score: 10-Worst pain ever Pain Loc: Back Pain Education: Yes Additional pain site: lower back, left leg Last PCP visit: 03/28/2025 BPI completed on: 07/18/2025 , pain severity score: 9, activity interference score: 8 BPI completed on: 02/23/2025 , pain severity score: 9, activity interference score: 10 Controlled substance agreement signed: Controlled Substance Agreement 07/18/2025 Controlled substance agreement: signed and up to date SPEECH INSTRUCTOR Tier: 3 Current Medications[1] Smoking status: Denies ETOH use: Yes, occasional glass of wine Illicit substances: Denies Marijuana use: No Lab Results Component Value Date POCTHC Negative 07/18/2025 POCCOCAINEUR Negative 07/18/2025 POCOPIATEUR Negative 07/18/2025 DOAUR Negative 07/18/2025 POCAMPHETAMI Negative 07/18/2025 POCBENZODIUR Negative 07/18/2025 POCBARBSCRN Negative 07/18/2025 POCMETHADOUR Negative 07/18/2025 POCBUPSCRN Negative 07/18/2025 POCTCAUR Negative 07/18/2025 POCMDMAUR Negative 07/18/2025 POCOXYCODONE Negative (A) 07/18/2025 POCPHENCYCUR Negative 07/18/2025 PROPOXUR Negative 07/18/2025 FENTANYLURIN Negative 07/18/2025 UTOX was Neg OXY. Pt advised I will send urine out for OXY confirmation and call him if the resultsare abnormal. ASSESSMENT: Encounter Diagnosis Name Primary? Long-term current use of opiate analgesic Yes PLAN: Information on pain group given: Yes Information on acupuncture given: Yes Narcan education provided: Yes Narcan prescription: active Will update PCP on Percocet use/count, UTOX results, request Percocet refill and update on BPI scoring. Controlled substance agreement reviewed and signed. A copy was given to the patient. Hank Bess will continue taking medications as prescribed and has verbalized understanding of care plan. Future Appointments Date Time Provider Department Center 08/15/2025 11:15 AM Osbaldo Gentile MD [facility] 11/21/2025 8:30 AM Juliana Pinedo, RN [facility] Juliana Pinedo, RN [1] Current Outpatient Medications: naloxone (Narcan) 4 mg/0.1 mL nasal spray, ADMINISTER 1 SPRAY INTO AFFECTED NOSTRIL(S) IF NEEDED FOR OPIOID REVERSAL. MAY REPEAT EVERY 2 TO 3 MINUTES IF NEEDED ALTERNATING NOSTRILS, UNTIL MEDICAL ASSISTANCE BECOMES AVAILABLE., Disp: 2 each, Rfl: 3 oxyCODONE-acetaminophen (Percocet) 10-325 MG tablet, Take 1 tablet by mouth every 8 (eight) hours if needed for severe pain for up to 28 days., Disp: 84 tablet, Rfl: 0 albuterol (2.5 MG/3ML) 0.083% nebulizer solution, INHALE 1 AMPULE USING A NEBULIZER THREE TIMES DAILY, Disp: 270 mL, Rfl: 0 albuterol (Proventil HFA) 108 (90 Base) MCG/ACT inhaler, INHALE 2 PUFFS BY MOUTH EVERY 4 TO 6 HOURSAS NEEDED, Disp: 6.7 g, Rfl: 4 albuterol 108 (90 Base) MCG/ACT inhaler, INHALE 2 PUFFS BY MOUTH EVERY 4 TO 6 HOURS NEEDED, Disp: 8.5 g, Rfl: 2 amLODIPine-valsartan (Exforge) 5-160 MG tablet, Take 1 tablet by mouth Once per day., Disp: 30 tablet, Rfl: 11 atorvastatin (Lipitor) 20 MG tablet, TAKE 1 TABLET BY MOUTH EVERY DAY, Disp: 90 tablet, Rfl: 2 Blood Pressure Monitoring (Omron 3 Series BP Monitor) device, USE TO CHECK BLOOD PRESSURE TWICE DAILY DIRECTED, Disp: , Rfl: cetirizine (ZyrTEC) 10 MG tablet, TAKE 1 TABLET BY MOUTH EVERY DAY, Disp: 90 tablet, Rfl: 1 cholecalciferol (D3 Super Strength) 50 MCG (2000 UT) capsule, TAKE 1 CAPSULE BY MOUTH EVERY DAY IN THE MORNING, Disp: 90 capsule, Rfl: 0 fluticasone (Cutivate) 0.05 % cream, APPLY TOPICALLY TWICE A DAY, Disp: 60 g, Rfl: 2 fluticasone (Flonase) 50 MCG/ACT nasal spray, INSTILL 2 SPRAYS IN EACH NOSTRIL ONCE DAILY, Disp: 48g, Rfl: 1 fluticasone-salmeterol (Advair HFA) 115-21 MCG/ACT inhaler, INHALE 2 PUFFS BY MOUTH TWICE DAILY RINSE MOUTH AFTER USING., Disp: 12 g, Rfl: 2 gabapentin (Neurontin) 300 MG capsule, TAKE 2 CAPSULES BY MOUTH THREE TIMES A DAY, Disp: 180 capsule, Rfl: 0 montelukast (Singulair) 10 MG tablet, TAKE 1 TABLET BY MOUTH EVERY DAY, Disp: 90 tablet, Rfl: 3 omeprazole (PriLOSEC) [address] capsule, TAKE 1 CAPSULE BY MOUTH EVERY DAY 30-60 MINUTES BEFORE A MEAL. DO NOT BREAK, CRUSH, DISSOLVE OR CHEW., Disp: 90 capsule, Rfl: 1 tadalafil (Cialis) 20 MG tablet, TAKE 1 TABLET 1 HOUR BEFORE SEXUAL RELATIONS ONCE DAILY NEEDED., Disp: 10 tablet, Rfl: 0 tamsulosin (Flomax) 0.4 MG 24 hr capsule, TAKE 2 CAPSULES BY MOUTH EVERY DAY, Disp: 180 capsule, Rfl: 1 traZODone (Desyrel) 50 MG tablet, Take 1 tablet (50 mg) by mouth if needed at bedtime for sleep., Disp: 30 tablet, Rfl: 3 documented in this encounter Plan of Treatment Upcoming Encounters Date Type Department Care Team (Late st Contact Info) Description 08/15/2025 11:15 AM EST Office Visit [address] [address] Name, MD Osbaldo [address] [place] [address] 11/21/2025 8:30 AM EST Clinical Support [address] [address] Juliana Pinedo, TOÑO documented as of this encounter Goals Goal Patient Goal Type Associated Problems Recent Progress Patient-Stated? Author Record your blood pressure once per day Blood Pressure No PuiaMichaelLilian, PharmD Blood Pressure < 140/90 Blood Pressure 142/89( 025 9:57 AM EDT) No PuiaMichaelLilian, PharmD documented as of this encounter Procedures Procedure Name Priority Date/Time Associated Diagnosis Comments POCT LUCIA-14 URINE DRUG SCREEN Routine 07/18/2025 8:49 AM EDT Long-term current use of opiate analgesic OXYCODONE SCREEN, URINE Routine 07/18/2025 8:40 AM EDT Long-term current use of opiate analgesic documented in this encounter Results * (ABNORMAL) POCT LUCIA-14 Urine Drug Screen (07/18/2025 8:49 AM EDT) THC Negative Negative Cocaine Screen, Urine Negative Negative Opiate Screen, Urine Negative Negative Methamphetamine Screen Urine Negative Negative Amphetamine Screen, Urine Negative Negative Benzodiazepines Screen, Urine Negative Negative Barbiturate Screen, Urine Negative Negative Methadone Screen, Urine Negative Negative Buprenophine Screen, Urine Negative Negative TCA, Urine Negative Negative MDMA Urine Negative Negative ng/mL Oxycodone Screen, Urine Negative(A) Negative Phencyclidine (PCP), Urine Negative Negative Propoxyphene, Urine Negative Negative Fentanyl, Urine Negative Negative Urine Urine specimen obtained by clean catch procedure / Unknown 07/18/2025 8:49 AM EDT Narrative Juliana Pinedo RN - 07/18/2025 8:49 AM EDT UTOX cup Lot#[id number] Exp. 07/05/26 Internal Pass Control us Osbaldo Gentile MD POINT OF CARE TEST ENTER/EDIT OR DERABLES Final Result * (ABNORMAL) Oxycodone Screen, Urine (07/18/2025 8:40 AM EDT) Oxycodone Urine Screen Positive( A) Not Detect ng/mL [facility] Comment:Oxycodone cut-off is 100 ng/mL.Positive results are unconfirmed and should not be used fornon-medical purposes. Urine 07/18/2025 8:40 AM EDT 07/18/2025 5:50 PM EDT us Osbaldo Gentile MD LAB URINE ORDERABLES Final Resul t [facility] [address] [place] [phone] documented in this encounter Visit Diagnoses Diagnosis Long-term current use of opiate analgesic- Primary Encounter for long-term (current) use of other medications documented in this encounter Additional Health Concerns Assessment Noted Time PHQ-9 Depression Total Score: 7 03/28/20 25 10:13 AM EDT documented as of this encounter Care Teams Creative Technologist Relationship Specialty Start Date End Date Name, MD Osbaldo [address] [place] [address] PCP - General Family Medicine 09/02/19 documented as of this encounter
--- OUTSIDE RECORDS SUMMARY | 2025-07-18 20:54 | XMS_ITS | Encounter Summary ---
Author Organization [employer] Address 75 [facility] 7t [place] [address] Care Team Providers Care Unarmed Security Officer Name Role Phone Name, Osbaldo RASCON Primary Care Provider [phone] Reason for Visit * Reason Onset Date Comments Med Refill 10/07/2024 Encounter Details Date Type Department Care Team ([facility] st Contact Info) Description 10/07/2024 Refill [facility] [address] [place], [place] [phone] Name, MD Osbaldo [address] [place] [address] Chronic low back pain, unspecified back pain [...] Description 08/15/2025 11:15 AM EST Office Visit [address] [address] Name, MD Osbaldo [address] [place] [address] 11/21/2025 8:30 AM EST Clinical Support [address] [address] Juliana Pinedo, TOÑO documented as of this [...] documented as of this encounter Care Teams Unarmed Security Officer Relationship Specialty Start Date End Date Name, MD Osbaldo [address] [place] [address] PCP - General Family Medicine 09/02/19 documented as of this encounter
--- OUTSIDE RECORDS SUMMARY | 2025-07-18 20:54 | XMS_ITS | Encounter Summary ---
Author Organization [employer] Address 75 [facility] 7t [place] [address] Care Team Providers Care Manager Pacu Name Role Phone Name, Osbaldo RASCON Primary Care Provider Reason for Visit * Reason Onset Date Comments Med Refill 12/27/2024 Encounter Details Date Type Department Care Team ([facility] st Contact Info) Description 12/27/2024 Refill [facility] 230 [place], [place] [phone] Georgina Hirsch, ANP [address] [place] [address] Gastroesophageal reflux disease, unspecified whether esophagitis present [...] Description 08/15/2025 11:15 AM EST Office Visit [address] [address] NameOsbaldo MD [address] [place] [address] 11/21/2025 8:30 AM EST Clinical Support [address] [address] Juliana Pinedo, TOÑO documented as of this [...] documented as of this encounter Care Teams Manager Pacu Relationship Specialty Start Date End Date Osbaldo Gentile MD [address] [place] [phone] PCP - General Family Medicine 09/02/19 documented as of this encounter
--- OUTSIDE RECORDS SUMMARY | 2025-07-18 20:54 | XMS_ITS | Encounter Summary ---
Author Organization [employer] Address [address] [facility] 7t [place] [address] Care Team Providers Care Towel Weaver Name Role Phone Name, Osbaldo RASCON Primary Care Provider [phone] Reason for Visit * Reason Onset Date Comments Med Refill 03/29/2024 Encounter Details Date Type Department Care Team ([facility] st Contact Info) Description 03/29/2024 Refill [facility]INE [address] [place], [place] [phone] Name, MD Osbaldo [address] [place] [address] Chronic low back pain, unspecified back pain [...] Description 08/15/2025 11:15 AM EST Office Visit [address] [address] Name, MD Osbaldo [address] [place] [address] 11/21/2025 8:30 AM EST Clinical Support [address] [address] Juliana Pinedo, TOÑO documented as of this [...] documented as of this encounter Care Teams Towel Weaver Relationship Specialty Start Date End Date Name, MD Osbaldo [address] [place] [address] PCP - General Family Medicine 09/02/19 documented as of this encounter
--- OUTSIDE RECORDS SUMMARY | 2025-07-18 20:54 | XMS_ITS | Encounter Summary ---
Author Organization [employer] Address [address] [facility] 7t [place] [address] Care Team Providers Care Steam Turbine Operator Name Role Phone Name, Osbaldo RASCON Primary Care Provider [phone] Lilian Baugh PharmD Unavailable [phone] Reason for Visit * Reason Onset Date Comments Nurse Triage 09/08/2023 Encounter Details Date Type Department Care Team ([facility] st Contact Info) Description 09/08/2023 Telephone [facility] MED[facility]INE 230 [place], [place] [phone] Name, MD Osbaldo 230 [place] [address] Nurse Triage Social History Tobacco Use Types [...] accepted this outcome Please contact pt at [phone] (No asphalt tamping machine operator needed) documented in this encounter Plan of Treatment Upcoming Encounters Date Type Department Care Team ([facility] st Contact Info) Description 08/15/2025 11:15 AM EST Office Visit [facility] MED[facility]INE [address] [place] [phone] Name, MD Osbaldo [address] [place] [address] 11/21/2025 8:30 AM EST Clinical Support [facility] 230 [facility] [place] [address] Juliana Pinedo, RN documented as of this encounter Goals Goal Patient Goal Type Associated Problems Recent Progress Patient-Stated? Author Record your blood pressure once per day Blood Pressure No PuLilian ramirez, PharmD Blood Pressure < 140/90 Blood Pressure 142/89( 025 9:57 AM EDT) No Lilian Baugh, PharmD documented as of this encounter Visit Diagnoses Not on filedocumented in this encounter Additional Health Concerns Assessment Noted Time PHQ-9 Depression Total Score: 8 01/21/20 23 3:35 PM EDT documented as of this encounter Care Teams Steam Turbine Operator Relationship Specialty Start Date End Date Name, [place] [address] PCP - General Family Medicine 09/02/19 Lilian Baugh, [place] [address] Pharmacist Internal Medicine 05/02/23 02/24/24 documented as of this encounter
--- OUTSIDE RECORDS SUMMARY | 2025-07-18 20:54 | XMS_ITS | Encounter Summary ---
Author Organization [employer] Address [address] [place] [address] 7t [place] [address] Care Team Providers Care Ground Crew Lines Person Name Role Phone Name, Osbaldo RASCON Primary Care Provider [phone] Lilian Baugh PharmD Unavailable [phone] Reason for Visit * Reason Comments Med Refill Encounter Details Date Type Department Care Team (Late st Contact Info) Description 05/25/2023 Refill [facility] MEDICINE [address] [place] [phone] NameOsbaldo MD [address] [place] [phone] Social History Tobacco Use Types Packs/Day Years [...] Description 08/15/2025 11:15 AM EST Office Visit [facility] [address] [place] [phone] Osbaldo Gentile MD [address] [place] [address] [phone] 11/21/2025 8:30 AM EST Clinical Support [facility] [address] [place] [address] Juliana Pinedo RN documented as of this [...] documented as of this encounter Care Teams Ground Crew Lines Person Relationship Specialty Start Date End Date Name, MD Osbaldo [address] [place] [phone] PCP - General Family Medicine 09/02/19 Lilian Baugh, PharmD [address] [place] [address] Pharmacist Internal Medicine 05/02/23 02/24/24 documented as of this encounter
--- OUTSIDE RECORDS SUMMARY | 2025-07-18 20:54 | XMS_ITS | Encounter Summary ---
Author Organization [employer] Address 75 [facility] 7t [place] [address] Care Team Providers Care Turnstile Collector Name Role Phone Name, Osbaldo RASCON Primary Care Provider [phone] Reason for Visit * Reason Onset Date Comments Med Refill 01/10/2025 Encounter Details Date Type Department Care Team ([facility] st Contact Info) Description 01/10/2025 Refill [facility] MED[facility]INE 230 [place], [place] [phone] Name, MD Osbaldo 230 [place] [address] Social History Tobacco Use Types Packs/Day Years [...] Description 08/15/2025 11:15 AM EST Office Visit [address] [address] Name, MD Osbaldo [address] [place] [phone] 11/21/2025 8:30 AM EST Clinical Support [address] [address] Juliana Pinedo, TOÑO documented as of this [...] documented as of this encounter Care Teams Turnstile Collector Relationship Specialty Start Date End Date Name, MD Osbaldo [address] [place] [address] PCP - General Family Medicine 09/02/19 documented as of this encounter
--- OUTSIDE RECORDS SUMMARY | 2025-07-18 20:54 | XMS_ITS | Encounter Summary ---
Author Organization [employer] Address 75 [facility] 7t [place] [address] Care Team Providers Care Clinical Trials Specialist Name Role Phone Name, Osbaldo RASCON Primary Care Provider [phone] Lilian Baugh PharmD Unavailable [phone] Reason for Visit * Reason Onset Date Comments Med Refill 10/28/2023 Encounter Details Date Type Department Care Team (Late st Contact Info) Description 10/28/2023 Refill [facility] MED[facility]INE [address] [place], [place] [phone] Betsy Nino MD [address] [place], [place] [phone] Asthma, unspecified asthma severity, unspecified whether complicated, [...] Description 08/15/2025 11:15 AM EST Office Visit [address] [address] NameOsbaldo MD [address] [place] [address] 11/21/2025 8:30 AM EST Clinical Support [address] [address] Juliana Pinedo, TOÑO documented as of this [...] as of this encounter Care Teams Clinical Trials Specialist Relationship Specialty Start Date End Date Osbaldo Gentile MD [address] [place] [address] PCP - General Family Medicine 09/02/19 Lilian Baugh, PharmD [address] [place] [address] Pharmacist Internal Medicine 05/02/23 02/24/24 documented as of this encounter
--- OUTSIDE RECORDS SUMMARY | 2025-07-18 20:54 | XMS_ITS | Encounter Summary ---
Author Organization [employer] Address 75 [facility] 7t [place] [address] Care Team Providers Care Operations Inspector Name Role Phone Name, Osbaldo RASCON Primary Care Provider [phone] Reason for Visit * Reason Onset Date Comments Percocet count discrepany 07/18/2025 PLASTERER APPRENTICE Agreement signed today 07/18/2025 Med Refill 07/18/2025 UTOX Neg OXY 07/18/2025 Encounter Details Date Type Department Care Team (Late st Contact Info) Description 07/18/2025 Refill [facility] MEDICINE [address] [place] [address] Favian Pinedo, cargo services coordinator low back pain, unspecified back pain laterality, [...] Addendum Note - Favian Pinedo RN - 07/18/2025 9:54 AM EDTAddended by: FAVIAN PINEDO on: 07/18/2025 09:54 AM Modules accepted: Orders * Telephone Encounter - Favian Pinedo RN - 07/18/2025 9:51 AM EDT Per message from PCP, no early refill of Percocet. PCP will add Celebrex if patient agreeable. TC to patient, reviewed about. Pt aware he cannot pickup his Percocet until 07/22/25. Pt would liketo try the Celebrex in the meantime. * Telephone Encounter - Favian Pinedo RN - 07/18/2025 9:02 AM EDT Pt had PLASTERER APPRENTICE Renewal appointment today UTOX was NEG Oxycodone, sent out for confirmation. Previously 12/03/2022 UTOX was all Negative on confimation. BPI completed on: 07/18/2025 , pain severity score: 9, activity interference score: 8 BPI completed on: 02/23/2025 , pain severity score: 9, activity interference score: 10 Stated he's been using between 3-5 pills Percocet a day. Back pain flared up after recent injections done. Pt had 3 pills remaining, anticipated 11. He was reminded no early refills and to speak with PCP prior to taking medication differently. Please advise, percocet refill due 07/22/25, he has Percocet until tomorrow. 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) documented in this encounter Plan of Treatment Upcoming Encounters Date Type Department Care Team (Late st Contact Info) Description 08/15/2025 11:15 AM EST Office Visit [address] [address] Osbaldo Gentile MD [address] [place] [address] 11/21/2025 8:30 AM EST Clinical Support [address] [address] Favian Pinedo, TOÑO documented as of this encounter [...] Time PHQ-9 Depression Total Score: 7 03/28/20 10:13 AM EDT documented as of this encounter Care Teams Operations Inspector Relationship Specialty Start Date End Date Osbaldo Gentile MD [address] [place] [phone] PCP - General Family Medicine 09/02/19 documented as of this encounter
--- OUTSIDE RECORDS SUMMARY | 2025-07-18 20:54 | XMS_ITS | Encounter Summary ---
Author Organization [employer] Address [address] [facility] 7t [place] [address] Care Team Providers Care Yarn Twister Name Role Phone Name, Osbaldo RASCON Primary Care Provider [phone] Reason for Visit * Reason Onset Date Comments Med Refill 01/27/2025 Encounter Details Date Type Department Care Team ([facility] st Contact Info) Description 01/27/2025 Refill [facility] MED[facility] [address] [place], [place] [phone] Darcie Cunha MD [address] [place], [place] [phone] Chronic low back pain, unspecified back pain [...] Description 08/15/2025 11:15 AM EST Office Visit [address] [address] Name, MD Osbaldo [address] [place] [address] 11/21/2025 8:30 AM EST Clinical Support [address] [address] Juliana Pinedo, TOÑO documented as of this [...] documented as of this encounter Care Teams Yarn Twister Relationship Specialty Start Date End Date NameOsbaldo MD [address] [place] [address] PCP - General Family Medicine 09/02/19 documented as of this encounter
--- OUTSIDE RECORDS SUMMARY | 2025-07-18 20:54 | XMS_ITS | Encounter Summary ---
Author Organization [employer] Address [address] [facility] 7t [place] [address] Care Team Providers Care Clinical Unit Educator Name Role Phone Name, Osbaldo RASCON Primary Care Provider Reason for Visit * Reason Onset Date Comments Med Refill 12/30/2024 Encounter Details Date Type Department Care Team ([facility] st Contact Info) Description 12/30/2024 Refill [facility] MED[facility] [address] [place], [place] [phone] Name, MD Osbaldo [address] [place] [address] Chronic low back pain, unspecified back pain [...] Description 08/15/2025 11:15 AM EST Office Visit [address] [address] Name, MD Osbaldo [address] [place] [address] 11/21/2025 8:30 AM EST Clinical Support [address] [address] Juliana Pinedo, TOÑO documented as of this [...] as of this encounter Care Teams Clinical Unit Educator Relationship Specialty Start Date End Date Name, MD Osbaldo [address] [place] [address] PCP - General Family Medicine 09/02/19 documented as of this encounter
--- OUTSIDE RECORDS SUMMARY | 2025-07-18 20:54 | XMS_ITS | Clinical Summary ---
Author Organization [facility] Address [address] [place] [address] Care Team Providers Care Topper Packer Name Role Phone Ariana Haro MD Primary [...] age to complete this topic Care Teams Topper Packer Relationship Specialty Start Date End Date Ariana Haro MD PCP - General 08/15/17
--- OUTSIDE RECORDS SUMMARY | 2025-07-18 20:54 | XMS_ITS | Encounter Summary ---
Author Organization [employer] Address [address] [facility] 7t [place] [address] Care Team Providers Care Materials Branch Chief Name Role Phone Name, Osbaldo RASCON Primary Care Provider [phone] Encounter Details Date Type Department Care Team (Latest Contact Info) Description 07/18/2025 Travel Social History Tobacco Use Types Packs/Day Years [...] Description 08/15/2025 11:15 AM EST Office Visit [address] [address] NameOsbaldo MD [address] [place] [address] 11/21/2025 8:30 AM EST Clinical Support [address] [address] Juliana Pinedo, TOÑO documented as of this [...] documented as of this encounter Care Teams Materials Branch Chief Relationship Specialty Start Date End Date Osbaldo Gentile MD [address] [place] [address] PCP - General Family Medicine 09/02/19 documented as of this encounter
--- OUTSIDE RECORDS SUMMARY | 2025-07-18 20:54 | XMS_ITS | Encounter Summary ---
Author Organization [employer] Address [address] [facility] 7t [place] [address] Care Team Providers Care Planner Name Role Phone Name, Osbaldo RASCON Primary Care Provider [phone] Lilian Baugh PharmD Unavailable [phone] Reason for Visit * Reason Comments Med Refill Encounter Details Date Type Department Care Team ([facility] st Contact Info) Description 10/16/2023 Refill [facility] MEDICINE [address] [place], [place] [phone] Lb Noriega MD 230 [place], [place] [phone] Social History Tobacco Use Types Packs/Day Years [...] Description 08/15/2025 11:15 AM EST Office Visit [address] [address] NameOsbaldo MD [address] [place] [address] 11/21/2025 8:30 AM EST Clinical Support [address] [address] Juliana Pinedo, TOÑO documented as of this [...] documented as of this encounter Care Teams Planner Relationship Specialty Start Date End Date NameOsbaldo MD [address] [place] [address] PCP - General Family Medicine 09/02/19 Puia, Lilian, PharmD [address] [place] [address] Pharmacist Internal Medicine 05/02/23 02/24/24 documented as of this encounter
--- OUTSIDE RECORDS SUMMARY | 2025-07-18 20:54 | XMS_ITS | Encounter Summary ---
Author Organization [employer] Address [address] [facility] 7t [place] [address] Care Team Providers Care Catering Server Name Role Phone Name, Osbaldo RASCON Primary Care Provider [phone] Reason for Visit * Reason Onset Date Comments Med Refill 02/22/2025 Encounter Details Date Type Department Care Team ([facility] st Contact Info) Description 02/22/2025 Refill [facility] [address] [place], [place] [phone] Name, MD Osbaldo [address] [place] [address] Social History Tobacco Use Types Packs/Day Years [...] Description 08/15/2025 11:15 AM EST Office Visit [address] [address] Name, MD Osbaldo [address] [place] [address] 11/21/2025 8:30 AM EST Clinical Support [address] [address] Juliana Pinedo, TOÑO documented as of this [...] documented as of this encounter Care Teams Catering Server Relationship Specialty Start Date End Date Name, MD Osbaldo [address] [place] [address] PCP - General Family Medicine 09/02/19 documented as of this encounter
--- OUTSIDE RECORDS SUMMARY | 2025-07-18 20:54 | XMS_ITS | Encounter Summary ---
Author Organization [employer] Address [address] [facility] 7t [place] [address] Care Team Providers Care Plastic Worker Name Role Phone Name, Osbaldo RASCON Primary Care Provider [phone] Reason for Visit * Reason Onset Date Comments Med Refill 12/27/2024 Encounter Details Date Type Department Care Team ([facility] st Contact Info) Description 12/27/2024 Refill [facility] [address] [place], [place] [phone] Name, MD Osbaldo [address] [place] [address] Chronic low back pain, unspecified back pain [...] Description 08/15/2025 11:15 AM EST Office Visit [address] [address] Name, MD Osbaldo [address] [place] [address] 11/21/2025 8:30 AM EST Clinical Support [address] [address] Juliana Pinedo RN documented as of this [...] documented as of this encounter Care Teams Plastic Worker Relationship Specialty Start Date End Date NameOsbaldo MD [address] [place] [address] PCP - General Family Medicine 09/02/19 documented as of this encounter
--- OUTSIDE RECORDS SUMMARY | 2025-07-18 20:54 | XMS_ITS | Encounter Summary ---
Author Organization [employer] Address [address] [facility] 7t [place] [address] Care Team Providers Care Pallet Assembler Name Role Phone Name, Osbaldo RASCON Primary Care Provider [phone] Reason for Visit * Reason Comments Med Refill Encounter Details Date Type Department Care Team ([facility] st Contact Info) Description 10/06/2024 Refill [facility] MEDICINE [address] [place], [place] [phone] Name, MD Osbaldo [address] [place] [address] Chronic low back pain, unspecified back pain [...] Description 08/15/2025 11:15 AM EST Office Visit [address] [address] NameOsbaldo MD [address] [place] [address] 11/21/2025 8:30 AM EST Clinical Support [address] [address] Juliana Pinedo, TOÑO documented as of this [...] documented as of this encounter Care Teams Pallet Assembler Relationship Specialty Start Date End Date NameOsbaldo MD [address] [place] [address] PCP - General Family Medicine 09/02/19 documented as of this encounter
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
--- OUTSIDE RECORDS SUMMARY | 2025-07-18 20:54 | XMS_ITS | Encounter Summary ---
Author Organization [employer] Address [address] [facility] [address]t [place] [address] Care Team Providers Care Arbor End Mainspring Former Name Role Phone Name, Osbaldo RASCON Primary Care Provider [phone] Reason for Visit * Reason Onset Date Comments Med Refill 12/03/2024 Encounter Details Date Type Department Care Team (Late st Contact Info) Description 12/03/2024 Refill [facility]S [address] [place], [place] [phone] Name, MD Osbaldo [address] [place] [address] Chronic low back pain, unspecified back pain [...] 08/15/2025 11:15 AM EST Office Visit [address] [address] Name, MD Osbaldo [address] [place] [address] 11/21/2025 8:30 AM EST Clinical Support [address] [address] Juliana Pinedo RN documented as of this encounter Goals Goal Patient Goal Type Associated Problems Recent Progress Patient-Stated? Author Record your blood pressure once per day Blood Pressure No Puia, Lilian, PharmD Blood Pressure < 140/90 Blood Pressure 142/89( 025 9:57 AM EDT) No Puia, Illian, PharmD documented as of this encounter Visit Diagnoses Diagnosis Chronic low back pain, unspecified back pain laterality, unspecified whether sciatica present documented in this encounter Additional Health Concerns Assessment Noted Time PHQ-9 Depression Total Score: 0 02/09/20 24 3:17 PM EDT documented as of this encounter Care Teams [employer] Former Relationship Specialty Start Date End Date NameOsbaldo MD [address] [place] [phone] PCP - General Family Medicine 09/02/19 documented as of this encounter
--- OUTSIDE RECORDS SUMMARY | 2025-07-18 20:54 | XMS_ITS | Encounter Summary ---
Author Organization [employer] Address [address] [facility] [address]t [place] [address] Care Team Providers Care Director Drug Safety Name Role Phone Name, Osbaldo RASCON Primary Care Provider [phone] Reason for Visit * Reason Onset Date Comments Med Refill 04/24/2025 Encounter Details Date Type Department Care Team ([facility] st Contact Info) Description 04/24/2025 Refill [facility] [address] [place], [place] [phone] Name, MD Osbaldo [address] [place] [address] Asthma, unspecified asthma severity, unspecified whether complicated, [...] Description 08/15/2025 11:15 AM EST Office Visit [address] [address] Name, MD Osbaldo [address] [place] [phone] 11/21/2025 8:30 AM EST Clinical Support [address] [address] Juliana Pinedo RN documented as of this [...] severity, unspecified whether complicated, unspecified whether persistent Moderate asthma with status asthmaticus, unspecified whether persistent Chronic low back pain, unspecified back pain laterality, unspecified whether sciatica present documented in this encounter Additional Health Concerns Assessment Noted Time PHQ-9 Depression Total Score: 7 03/28/20 25 10:13 AM EDT documented as of this encounter Care Teams Director Drug Safety Relationship Specialty Start Date End Date Name, MD Osbaldo [address] [place] [address] PCP - General Family Medicine 09/02/19 documented as of this encounter
--- OUTSIDE RECORDS SUMMARY | 2025-07-18 20:54 | XMS_ITS | Encounter Summary ---
Author Organization [employer] Address [address] [facility] 7t [place] [address] Care Team Providers Care Data Examination Clerk Name Role Phone Name, Osbaldo RASCON Primary Care Provider [phone] Reason for Visit * Reason Onset Date Comments Med Refill 09/30/2024 Encounter Details Date Type Department Care Team ([facility] st Contact Info) Description 09/30/2024 Refill [facility] [address] [place], [place] [phone] Name, MD Osbaldo [address] [place] [address] Allergic rhinitis, unspecified seasonality, unspecified trigger; Chronic [...] Description 08/15/2025 11:15 AM EST Office Visit [address] [address] Osbaldo Gentile MD [address] [place] [address] 11/21/2025 8:30 AM EST Clinical Support [address] [address] Juliana Pinedo RN documented as of this [...] documented as of this encounter Care Teams Data Examination Clerk Relationship Specialty Start Date End Date Osbaldo Gentile MD [address] [place] [phone] PCP - General Family Medicine 09/02/19 documented as of this encounter
--- OUTSIDE RECORDS SUMMARY | 2025-07-18 20:54 | XMS_ITS | Encounter Summary ---
Author Organization [employer] Address [address] [facility] [address] [place] [address] Care Team Providers Care Finish Mixer Name Role Phone Name, Osabldo RASCON Primary Care Provider [phone] Reason for Visit * Reason Onset Date Comments Med Refill 03/29/2024 Encounter Details Date Type Department Care Team ([facility] st Contact Info) Description 03/29/2024 Refill [facility] MEDICINE [address] [place], [place] [phone] Georgina Hirsch, ANP [address] [place] [address] Gastroesophageal reflux disease, unspecified whether esophagitis present [...] Description 08/15/2025 11:15 AM EST Office Visit [address] [address] NameOsbaldo MD [address] [place] [address] 11/21/2025 8:30 AM EST Clinical Support [address] [address] Juliana Pinedo, TOÑO documented as of this [...] as of this encounter Care Teams Finish Mixer Relationship Specialty Start Date End Date Osbaldo Gentile MD [address] [place] [phone] PCP - General Family Medicine 09/02/19 documented as of this encounter
--- OUTSIDE RECORDS SUMMARY | 2025-07-18 20:54 | XMS_ITS | Encounter Summary ---
Author Organization [employer] Address 75 [facility] 7t [place] [address] Care Team Providers Care Per Diem Physical Therapist Name Role Phone Name, Osbaldo RASCON Primary Care Provider [phone] Lilian Baugh PharmD Unavailable [phone] Reason for Visit * Reason Onset Date Comments Med Refill 07/23/2023 Encounter Details Date Type Department Care Team ([facility] st Contact Info) Description 07/23/2023 Refill [facility] MEDICINE 230 [place], [place] [phone] Lb Noriega MD 230 [place] [address] Social History Tobacco Use Types Packs/Day Years [...] Description 08/15/2025 11:15 AM EST Office Visit [address] [address] Name, MD Osbaldo [address] [place] [address] 11/21/2025 8:30 AM EST Clinical Support [address] [address] Juliana Pinedo, TOÑO documented as of this [...] documented as of this encounter Care Teams Per Diem Physical Therapist Relationship Specialty Start Date End Date Osbaldo Gentile MD [address] [place] [address] PCP - General Family Medicine 09/02/19 Puia, Lilian, PharmD [address] [place] [address] Pharmacist Internal Medicine 05/02/23 02/24/24 documented as of this encounter
--- OUTSIDE RECORDS SUMMARY | 2025-07-18 20:54 | XMS_ITS | Encounter Summary ---
Author Organization [employer] Address 75 [facility] 7t [place] [address] Care Team Providers Care Spares Scheduler Name Role Phone Name, Osbaldo ARSCON Primary Care Provider [phone] Reason for Visit * Reason Comments Med Refill Encounter Details Date Type Department Care Team ([facility] st Contact Info) Description 02/20/2025 Refill [facility] MEDICINE 230 [place], [place] [phone] Lissette Christie, BREANNE 230 [place] [address] Allergic rhinitis, unspecified seasonality, unspecified trigger Social [...] Description 08/15/2025 11:15 AM EST Office Visit [address] [address] NameOsbaldo MD [address] [place] [address] 11/21/2025 8:30 AM EST Clinical Support [address] [address] Juliana Pinedo, TOÑO documented as of this [...] documented as of this encounter Care Teams Spares Scheduler Relationship Specialty Start Date End Date Name, MD Osbaldo [address] [place] [address] PCP - General Family Medicine 09/02/19 documented as of this encounter
--- OUTSIDE RECORDS SUMMARY | 2025-07-18 20:54 | XMS_ITS | Encounter Summary ---
Author Organization [employer] Address [address] [place] [address] 7t [place] [address] Care Team Providers Care Director Of Financial Reporting Name Role Phone Name, Osbaldo RASCON Primary Care Provider Lilian Baugh PharmD Unavailable [phone] Reason for Visit * Reason Comments Med Refill Encounter Details Date Type Department Care Team (Late st Contact Info) Description 09/06/[address] [address] Osbaldo Gentile MD [address] [place] [address] Asthma, unspecified asthma severity, unspecified whether complicated, [...] Description 08/15/2025 11:15 AM EST Office Visit [address] [phone] Osbaldo Gentile MD [address] [place] [address] 11/21/2025 8:30 AM EST Clinical Support [address] [address] Juliana Pinedo, RN documented as of this encounter Visit Diagnoses Diagnosis Asthma, unspecified asthma severity, unspecified whether complicated, unspecified whether persistent- Primary Lumbago with sciatica, left side documented in this encounter Care Teams Director Of Financial Reporting Relationship Specialty Start Date End Date Name, MD Osbaldo 230 [place] [address] PCP - General Family Medicine 09/02/19 Lilian Baugh PharmD 230 [place] [address] Pharmacist Internal Medicine 05/02/23 02/24/24 documented as of this encounter
--- OUTSIDE RECORDS SUMMARY | 2025-07-18 20:54 | XMS_ITS | Encounter Summary ---
Author Organization [employer] Address [address] [place] [address] 7t [place] [address] Care Team Providers Care Accounting Methods Analyst Name Role Phone Name, Osbaldo RASCON Primary Care Provider [phone] Lilian Baugh PharmD Unavailable [phone] Reason for Visit * Reason Onset Date Comments Med Refill 05/01/2023 Encounter Details Date Type Department Care Team ([facility] st Contact Info) Description 05/01/2023 Telephone [facility] MEDICINE 230 [place], [place] [phone] Name, MD Osbaldo 230 [place] [address] Med Refill Social History Tobacco Use Types [...] Description 08/15/2025 11:15 AM EST Office Visit [address] [address] Name, [place] [address] 11/21/2025 8:30 AM EST Clinical Support [address] [address] Juliana Pinedo, RN documented as of this [...] documented as of this encounter Care Teams Accounting Methods Analyst Relationship Specialty Start Date End Date Name, MD Osbaldo [address] [place] [address] PCP - General Family Medicine 09/02/19 Puia, Lilian, PharmD [address] [place] [address] Pharmacist Internal Medicine 05/02/23 02/24/24 documented as of this encounter
--- OUTSIDE RECORDS SUMMARY | 2025-07-18 20:54 | XMS_ITS | Encounter Summary ---
Author Organization [employer] Address 75 [facility] 7t [place] [address] Care Team Providers Care Stock Clipper Name Role Phone Name, Osbaldo RASCON Primary Care Provider [phone] Lilian Baugh PharmD Unavailable [phone] Reason for Visit * Reason Onset Date Comments Med Refill 01/29/2024 Encounter Details Date Type Department Care Team ([facility] st Contact Info) Description 01/29/2024 Refill [facility] MED & PEDS 505 [place] [address] Abril Brooks FNP 505 [place] [address] Social History Tobacco Use Types Packs/Day Years [...] Description 08/15/2025 11:15 AM EST Office Visit [address] [address] Name, MD Osbaldo [address] [place] [address] 11/21/2025 8:30 AM EST Clinical Support [address] [address] Juliana Pinedo, TOÑO documented as of this [...] documented as of this encounter Care Teams Stock Clipper Relationship Specialty Start Date End Date Name, MD Osbaldo [address] [place] [address] PCP - General Family Medicine 09/02/19 Puia, Lilian, PharmD [address] [place] [address] Pharmacist Internal Medicine 05/02/23 02/24/24 documented as of this encounter
--- OUTSIDE RECORDS SUMMARY | 2025-07-18 20:54 | XMS_ITS | Encounter Summary ---
Author Organization [employer] Address [address] [place] [address] 7t [place] [address] Care Team Providers Care Striper Machine Name Role Phone Name, Osbaldo RASCON Primary Care Provider [phone] Lilian Baugh PharmD Unavailable [phone] Encounter Details Date Type Department Care Team (Late st Contact Info) Description 10/02/2022 Orders Only [facility] MED & PEDS 505 [place], [place] [phone] Shruti Harrington LPN Social History Tobacco Use [...] Description 08/15/2025 11:15 AM EST Office Visit [address] [address] Osbaldo Gentile MD [address] [place] [address] 11/21/2025 8:30 AM EST Clinical Support [address] [address] Juliana Pinedo RN documented as of this encounter Visit Diagnoses Not on filedocumented in this encounter Care Teams Striper Machine Relationship Specialty Start Date End Date NameOsbaldo MD [address] [place] [address] PCP - General Family Medicine 09/02/19 Lilian Baugh PharmD 230 [place] [address] Pharmacist Internal Medicine 05/02/23 02/24/24 documented as of this encounter
--- OUTSIDE RECORDS SUMMARY | 2025-07-18 20:54 | XMS_ITS | Encounter Summary ---
Author Organization [employer] Address 75 [facility] 7t [place] [address] Care Team Providers Care Retail Wireless Sales Representative Name Role Phone Name, Osbaldo RASCON Primary Care Provider Lilian Baugh PharmD Unavailable [phone] Reason for Visit * Reason Onset Date Comments notes 02/11/2024 Encounter Details Date Type Department Care Team ([facility] st Contact Info) Description 02/11/2024 Telephone [facility] MEDICINE 230 [place], [place] [phone] Name, MD Osbaldo 230 [place] [address] notes Social History Tobacco Use Types Packs/Day [...] Jacqui a v/m there's no notes from [facility]. * Telephone Encounter - Yvan Desai RN - 02/11/2024 4:55 PM EDT Please review and advise for below request. * Telephone Encounter - Marija Cheek - 02/11/2024 2:26 PM EDT Tc from Jacqui with [facility] pain management requesting supporting documents for referral. Requesting MRI results, [facility] pain management notes, and Neurosurgeon [facility] notes. Please fax to [phone] Any questions, contact Jacqui at [phone] documented in this encounter Plan of Treatment Upcoming Encounters Date Type Department Care Team (Late st Contact Info) Description 08/15/2025 11:15 AM EST Office Visit [facility] MEDICINE [address] [place] [address] Name, MD Osbaldo 230 [place] [address] 11/21/2025 8:30 AM EST Clinical Support [facility] [address] [place] [address] Juliana Pinedo, RN documented as of this [...] as of this encounter Care Teams Retail Wireless Sales Representative Relationship Specialty Start Date End Date Name, MD Osbaldo [address] [place] [address] PCP - General Family Medicine 09/02/19 Lilian Baugh, PharmD [address] [place] [address] Pharmacist Internal Medicine 05/02/23 02/24/24 documented as of this encounter
--- OUTSIDE RECORDS SUMMARY | 2025-07-18 20:54 | XMS_ITS | Encounter Summary ---
Author Organization [employer] Address 75 [facility] 7t [place] [address] Care Team Providers Care Stoner Hand Name Role Phone Name, Osbaldo RASCON Primary Care Provider [phone] Reason for Visit * Reason Onset Date Comments Med Refill 03/29/2024 Encounter Details Date Type Department Care Team ([facility] st Contact Info) Description 03/29/2024 Refill [facility] MEDICINE 230 [place], [place] [phone] Betsy Nino MD 230 [place], [place] [phone] Allergic rhinitis, unspecified seasonality, unspecified trigger Social [...] Description 08/15/2025 11:15 AM EST Office Visit [address] [address] NameOsbaldo MD [address] [place] [address] 11/21/2025 8:30 AM EST Clinical Support [address] [address] Juliana Pinedo, TOÑO documented as of this [...] documented as of this encounter Care Teams Stoner Hand Relationship Specialty Start Date End Date Osbaldo Gentile MD [address] [place] [address] PCP - General Family Medicine 09/02/19 documented as of this encounter
--- OUTSIDE RECORDS SUMMARY | 2025-07-18 20:54 | XMS_ITS | Encounter Summary ---
Author Organization [employer] Address 75 [facility] 7t [place] [address] Care Team Providers Care Agronomy Internship Name Role Phone NameOsbaldo MD Primary Care Provider [phone] Lilian Baugh PharmD Unavailable [phone] Reason for Visit * Reason Onset Date Comments Med Refill 01/29/2024 Encounter Details Date Type Department Care Team ([facility] st Contact Info) Description 01/29/2024 Refill [facility] MEDICINE 230 [place], [place] [phone] Name, MD Osbaldo 230 [place] [address] Social History Tobacco Use Types Packs/Day Years [...] Description 08/15/2025 11:15 AM EST Office Visit [address] [address] NameOsbaldo MD [address] [place] [address] 11/21/2025 8:30 AM EST Clinical Support [address] [address] Juliana Pinedo, TOÑO documented as of this [...] documented as of this encounter Care Teams Agronomy Internship Relationship Specialty Start Date End Date Name, MD Osbaldo [address] [place] [address] PCP - General Family Medicine 09/02/19 Puia, Lilian, PharmD [address] [place] [address] Pharmacist Internal Medicine 05/02/23 02/24/24 documented as of this encounter
--- OUTSIDE RECORDS SUMMARY | 2025-07-18 20:54 | XMS_ITS | Encounter Summary ---
Author Organization [employer] Address 75 [facility] 7t [place] [address] Care Team Providers Care Real Estate Closer Name Role Phone Name, Osbaldo RASCON Primary Care Provider Lilian Baugh PharmD Unavailable [phone] Reason for Visit * Reason Onset Date Comments Med Refill 10/28/2023 Encounter Details Date Type Department Care Team (Late st Contact Info) Description 10/28/2023 Refill [facility] MEDICINE 230 [place], [place] [phone] Darcie Cunha MD 230 [place], [place] [phone] Chronic low back pain, unspecified back pain [...] Description 08/15/2025 11:15 AM EST Office Visit [address] [address] NameOsbaldo MD [address] [place] [address] 11/21/2025 8:30 AM EST Clinical Support [address] [address] Juliana Pinedo RN documented as of this [...] documented as of this encounter Care Teams Real Estate Closer Relationship Specialty Start Date End Date Osbaldo Gentile MD [address] [place] [address] PCP - General Family Medicine 09/02/19 Lilian Baugh, PharmD [address] [place] [address] Pharmacist Internal Medicine 05/02/23 02/24/24 documented as of this encounter
--- OUTSIDE RECORDS SUMMARY | 2025-07-18 20:54 | XMS_ITS | Encounter Summary ---
Author Organization [employer] Address 75 [facility] 7t [place] [address] Care Team Providers Care Haul Cane Brakeman Name Role Phone Name, Osbaldo RASCON Primary Care Provider [phone] Reason for Visit * Reason Onset Date Comments Med Refill 03/29/2024 Encounter Details Date Type Department Care Team ([facility] st Contact Info) Description 03/29/2024 Refill [facility] MEDICINE 230 [place], [place] [phone] Name, MD Osbaldo 230 [place] [address] Social History Tobacco Use Types Packs/Day Years [...] Description 08/15/2025 11:15 AM EST Office Visit [address] [address] Name, MD Osbaldo [address] [place] [address] 11/21/2025 8:30 AM EST Clinical Support [address] [address] Juliana Pinedo, TOÑO documented as of this [...] documented as of this encounter Care Teams Haul Cane Brakeman Relationship Specialty Start Date End Date Name, MD Osbaldo [address] [place] [address] PCP - General Family Medicine 09/02/19 documented as of this encounter
--- OUTSIDE RECORDS SUMMARY | 2025-07-18 20:54 | XMS_ITS | Encounter Summary ---
Author Organization [employer] Address [address] [place] [address] 7t [place] [address] Care Team Providers Care Mold Filling Operator Name Role Phone Name, Osbaldo RASCON Primary Care Provider [phone] Lilian Baugh PharmD Unavailable [phone] Encounter Details Date Type Department Care Team (Late st Contact Info) Description 09/06/2022 Orders Only [facility] [address] [place] [address] Marya Weston LPN Social History Tobacco Use [...] 08/15/2025 11:15 AM EST Office Visit [address] [address] Osbaldo Gentile MD [address] [place] [address] 11/21/2025 8:30 AM EST Clinical Support [address] [address] Juliana Pinedo RN documented as of this encounter Visit Diagnoses Not on filedocumented in this encounter Care Teams Mold Filling Operator Relationship Specialty Start Date End Date Osbaldo Gentile MD [address] [place] [address] PCP - General Family Medicine 09/02/19 Lilian Baugh, Anastasia [address] [place] [address] [place] [address] Pharmacist Internal Medicine 05/02/23 02/24/24 documented as of this encounter
--- OUTSIDE RECORDS SUMMARY | 2025-07-18 20:54 | XMS_ITS | Encounter Summary ---
Author Organization [employer] Address 75 [facility] 7t [place] [address] Care Team Providers Care Flex O Writer Operator Name Role Phone Name, Osbaldo RASCON Primary Care Provider [phone] Reason for Visit * Reason Comments Med Refill Encounter Details Date Type Department Care Team ([facility] st Contact Info) Description 10/04/2024 Refill [facility] MEDICINE 230 [place], [place] [phone] Name, MD Osbaldo 230 [place] [address] Chronic low back pain, unspecified back pain [...] Description 08/15/2025 11:15 AM EST Office Visit [address] [address] NameOsbaldo MD [address] [place] [address] 11/21/2025 8:30 AM EST Clinical Support [address] [address] Juliana Pinedo, TOÑO documented as of this [...] documented as of this encounter Care Teams Flex O Writer Operator Relationship Specialty Start Date End Date NameOsbaldo MD [address] [place] [address] PCP - General Family Medicine 09/02/19 documented as of this encounter
--- OUTSIDE RECORDS SUMMARY | 2025-07-18 20:55 | XMS_ITS | Encounter Summary ---
Author Organization [employer] Address 75 [facility] 7t [place] [address] Care Team Providers Care Champion Of Sustainable Design Name Role Phone Name, Osbaldo RASCON Primary Care Provider [phone] Reason for Visit * Reason Onset Date Comments Med Refill 07/22/2024 Encounter Details Date Type Department Care Team ([facility] st Contact Info) Description 07/22/2024 Refill [facility] MEDICINE 230 [place], [place] [phone] Georgina Hirsch, ANP 230 [place] [address] Gastroesophageal reflux disease, unspecified whether esophagitis present [...] Description 08/15/2025 11:15 AM EST Office Visit [address] [address] NameOsbaldo MD [address] [place] [address] 11/21/2025 8:30 AM EST Clinical Support [address] [address] Juliana Pinedo, TOÑO documented as of this encounter Goals Goal Patient Goal Type Associated Problems Recent Progress Patient-Stated? Author Record your blood pressure once per day Blood Pressure No Puia, Lilain, PharmD Blood Pressure < 140/90 Blood Pressure 142/89( 025 9:57 AM EDT) No Puia, Lilian, PharmD documented as of this encounter Visit Diagnoses Diagnosis Gastroesophageal reflux disease, unspecified whether esophagitis present documented in this encounter Additional Health Concerns Assessment Noted Time PHQ-9 Depression Total Score: 0 02/09/20 24 3:17 PM EDT documented as of this encounter Care Teams Champion Of Sustainable Design Relationship Specialty Start Date End Date Osbaldo Gentile MD [address] [place] [address] PCP - General Family Medicine 09/02/19 documented as of this encounter
--- OUTSIDE RECORDS SUMMARY | 2025-07-18 20:55 | XMS_ITS | Encounter Summary ---
Author Organization [employer] Address 75 [facility] 7t [place] [address] Care Team Providers Care Licensed Vocational Nurse Name Role Phone Name, Osbaldo RASCON Primary Care Provider [phone] Reason for Visit * Reason Onset Date Comments Med Refill 05/20/2025 Encounter Details Date Type Department Care Team ([facility] st Contact Info) Description 05/20/2025 Refill [facility] MED & PEDS [address] [place], [place] [phone] Name, MD Osbaldo 230 [place] [address] Chronic low back pain, unspecified back pain [...] Description 08/15/2025 11:15 AM EST Office Visit [address] [address] NameOsbaldo MD [address] [place] [address] 11/21/2025 8:30 AM EST Clinical Support [address] [address] Juliana Pinedo, TOÑO documented as of this [...] documented as of this encounter Care Teams Licensed Vocational Nurse Relationship Specialty Start Date End Date Osbaldo Gentile MD [address] [place] [address] PCP - General Family Medicine 09/02/19 documented as of this encounter
--- OUTSIDE RECORDS SUMMARY | 2025-07-18 20:55 | XMS_ITS | Encounter Summary ---
Author Organization [employer] Address 75 [facility] 7t [place] [address] Care Team Providers Care Head And Neck Surgeon Name Role Phone Name, Osbaldo RASCON Primary Care Provider [phone] Reason for Visit * Reason Onset Date Comments Med Refill 03/15/2025 Encounter Details Date Type Department Care Team ([facility] st Contact Info) Description 03/15/2025 Refill [facility] MEDICINE 230 [place], [place] [phone] Darcie Cunha MD 230 [place], [place] [phone] Chronic low back pain, unspecified back pain [...] Description 08/15/2025 11:15 AM EST Office Visit [address] [address] Name, MD Osbaldo [address] [place] [address] 11/21/2025 8:30 AM EST Clinical Support [address] [address] Juliana Pinedo, TOÑO documented as of this [...] documented as of this encounter Care Teams Head And Neck Surgeon Relationship Specialty Start Date End Date NameOsbaldo MD [address] [place] [address] PCP - General Family Medicine 09/02/19 documented as of this encounter
--- OUTSIDE RECORDS SUMMARY | 2025-07-18 20:55 | XMS_ITS | Encounter Summary ---
Author Organization [employer] Address 75 [facility] 7t [place] [address] Care Team Providers Care Hospital Insurance Representative Name Role Phone Name, Osbaldo RASCON Primary Care Provider [phone] Reason for Visit * Reason Onset Date Comments Med Refill 04/29/2024 Encounter Details Date Type Department Care Team ([facility] st Contact Info) Description 04/29/2024 Refill [facility] MEDICINE 230 [place], [place] [phone] Lissette Christie, BREANNE 230 [place] [address] Chronic low back pain, unspecified back pain [...] Description 08/15/2025 11:15 AM EST Office Visit [address] [address] Name, MD Osbaldo [address] [place] [address] 11/21/2025 8:30 AM EST Clinical Support [address] [address] Juliana Pinedo, TOÑO documented as of this [...] documented as of this encounter Care Teams Hospital Insurance Representative Relationship Specialty Start Date End Date Name, MD Osbaldo [address] [place] [address] PCP - General Family Medicine 09/02/19 documented as of this encounter
--- OUTSIDE RECORDS SUMMARY | 2025-07-18 20:55 | XMS_ITS | Encounter Summary ---
Author Organization [employer] Address 75 [facility] 7t [place] [address] Care Team Providers Care Equipment Planner Name Role Phone Name, Osbaldo RASCON Primary Care Provider [phone] Lilian Baugh PharmD Unavailable [phone] Encounter Details Date Type Department Care Team (Late Contact Info) Description 12/11/2022 Orders Only [facility] MED & PEDS 505 [place] [address] Shruti Harrington LPN Social History Tobacco Use [...] Upcoming Encounters Date Type Department Care Team ([facility] Contact Info) Description 08/15/2025 11:15 AM EST Office Visit [address] [phone] Name, MD Osbaldo [address] [place] [address] 11/21/2025 8:30 AM EST Clinical Support [address] [address] Juliana Pinedo, RN documented as of this encounter Visit Diagnoses Not on filedocumented in this encounter Care Teams Equipment Planner Relationship Specialty Start Date End Date Name, MD Osbaldo 230 [place], [place] [phone] PCP - General Family Medicine 09/02/19 Lilian Baugh PharmD 230 [place] [address] Pharmacist Internal Medicine 05/02/23 02/24/24 documented as of this encounter
--- OUTSIDE RECORDS SUMMARY | 2025-07-18 20:55 | XMS_ITS | Encounter Summary ---
Author Organization [employer] Address 75 [facility] 7t [place] [address] Care Team Providers Care Material Carrier Name Role Phone Name, Osbaldo RASCON Primary Care Provider [phone] Reason for Visit * Reason Onset Date Comments Med Refill 03/21/2025 Encounter Details Date Type Department Care Team ([facility] st Contact Info) Description 03/21/2025 Refill [facility] MEDICINE 230 [place], [place] [phone] Darcie Cunha MD 230 [place], [place] [phone] Chronic low back pain, unspecified back pain [...] 08/15/2025 11:15 AM EST Office Visit [address] [address] Name, MD Osbaldo [address] [place] [address] 11/21/2025 8:30 AM EST Clinical Support [address] [address] Juliana Pinedo, TOÑO documented as of this [...] documented as of this encounter Care Teams Material Carrier Relationship Specialty Start Date End Date NameOsbaldo MD [address] [place] [address] PCP - General Family Medicine 09/02/19 documented as of this encounter
--- OUTSIDE RECORDS SUMMARY | 2025-07-18 20:55 | XMS_ITS | Encounter Summary ---
Author Organization [employer] Address 75 [facility] 7t [place] [address] Care Team Providers Care Automotive Glass Installer Name Role Phone Name, Osbaldo RASCON Primary Care Provider [phone] Reason for Visit * Reason Onset Date Comments Med Refill 03/01/2025 Encounter Details Date Type Department Care Team ([facility] st Contact Info) Description 03/01/2025 Refill [facility] MEDICINE 230 [place], [place] [phone] Name, MD Osbaldo 230 [place] [address] Chronic low back pain, unspecified back pain [...] Description 08/15/2025 11:15 AM EST Office Visit [address] [address] Name, MD Osbaldo [address] [place] [address] 11/21/2025 8:30 AM EST Clinical Support [address] [address] Juliana Pinedo, TOÑO documented as of this [...] documented as of this encounter Care Teams Automotive Glass Installer Relationship Specialty Start Date End Date Name, MD Osbaldo [address] [place] [address] PCP - General Family Medicine 09/02/19 documented as of this encounter
--- OUTSIDE RECORDS SUMMARY | 2025-07-18 20:55 | XMS_ITS | Encounter Summary ---
Author Organization [employer] Address [address] [place] [address] 7t [place] [address] Care Team Providers Care Gamewell Operator Name Role Phone Name, Osbaldo RASCON Primary Care Provider [phone] Lilian Baugh PharmD Unavailable [phone] Encounter Details Date Type Department Care Team (Late st Contact Info) Description 12/30/2022 Orders Only [address] [address] Marya Weston LPN Social History Tobacco Use [...] 08/15/2025 11:15 AM EST Office Visit [address] [phone] Name, MD Osbaldo [address] [place] [address] 11/21/2025 8:30 AM EST Clinical Support [address] [address] Juliana Pinedo, RN documented as of this encounter Visit Diagnoses Not on filedocumented in this encounter Care Teams Gamewell Operator Relationship Specialty Start Date End Date Name, MD Osbaldo 230 [place] [address] PCP - General Family Medicine 09/02/19 Lilian Baugh PharmD 230 [place] [address] Pharmacist Internal Medicine 05/02/23 02/24/24 documented as of this encounter
--- OUTSIDE RECORDS SUMMARY | 2025-07-18 20:55 | XMS_ITS | Encounter Summary ---
Author Organization [employer] Address 75 [facility] 7t [place] [address] Care Team Providers Care Personnel Psychologist Name Role Phone NameOsbaldo MD Primary Care Provider [phone] Lilian Baugh PharmD Unavailable [phone] Reason for Visit * Reason Onset Date Comments Med Refill 01/29/2024 Encounter Details Date Type Department Care Team ([facility] st Contact Info) Description 01/29/2024 Refill [facility] MEDICINE 230 [place], [place] [phone] Name, MD Osbaldo 230 [place] [address] Social History Tobacco Use Types Packs/Day Years [...] Description 08/15/2025 11:15 AM EST Office Visit [address] [address] NameOsbaldo MD [address] [place] [address] 11/21/2025 8:30 AM EST Clinical Support [address] [address] Juliana Pinedo, TOÑO documented as of this [...] documented as of this encounter Care Teams Personnel Psychologist Relationship Specialty Start Date End Date Name, MD Osbaldo [address] [place] [address] PCP - General Family Medicine 09/02/19 Puia, Lilian, PharmD [address] [place] [address] Pharmacist Internal Medicine 05/02/23 02/24/24 documented as of this encounter
--- OUTSIDE RECORDS SUMMARY | 2025-07-18 20:55 | XMS_ITS | Encounter Summary ---
Author Organization [employer] Address 75 [facility] 7t [place] [address] Care Team Providers Care Services Engineer Name Role Phone Name, Osbaldo RASCON Primary Care Provider [phone] Reason for Visit * Reason Onset Date Comments Med Refill 03/11/2025 Encounter Details Date Type Department Care Team ([facility] st Contact Info) Description 03/11/2025 Refill [facility] MEDICINE 230 [place], [place] [phone] Darcie Cunha MD 230 [place], [place] [phone] Chronic low back pain, unspecified back pain [...] 08/15/2025 11:15 AM EST Office Visit [address] [address] Name, MD Osbaldo [address] [place] [address] 11/21/2025 8:30 AM EST Clinical Support [address] [address] Juliana Pinedo, TOÑO documented as of this [...] documented as of this encounter Care Teams Services Engineer Relationship Specialty Start Date End Date NameOsbaldo MD [address] [place] [address] PCP - General Family Medicine 09/02/19 documented as of this encounter
--- OUTSIDE RECORDS SUMMARY | 2025-07-18 20:55 | XMS_ITS | Encounter Summary ---
Author Organization [employer] Address 75 [facility] 7t [place] [address] Care Team Providers Care Manifest Clerk Name Role Phone Name, Osbaldo RASCON Primary Care Provider [phone] Lilian Baugh PharmD Unavailable [phone] Reason for Visit * Reason Onset Date Comments Med Refill 01/23/2024 Encounter Details Date Type Department Care Team ([facility] st Contact Info) Description 01/23/2024 Refill [facility] MEDICINE 230 [place], [place] [phone] Name, MD Osbaldo 230 [place] [address] Social History Tobacco Use Types Packs/Day Years [...] Description 08/15/2025 11:15 AM EST Office Visit [address] [address] NameOsbaldo MD [address] [place] [address] 11/21/2025 8:30 AM EST Clinical Support [address] [address] Juliana Pinedo, TOÑO documented as of this [...] documented as of this encounter Care Teams Manifest Clerk Relationship Specialty Start Date End Date Name, MD Osbaldo [address] [place] [address] PCP - General Family Medicine 09/02/19 Puia, Lilian, PharmD [address] [place] [address] Pharmacist Internal Medicine 05/02/23 02/24/24 documented as of this encounter
--- OUTSIDE RECORDS SUMMARY | 2025-07-18 20:55 | XMS_ITS | Encounter Summary ---
Author Organization [employer] Address 75 [facility] 7t [place] [address] Care Team Providers Care Mattress Maker Name Role Phone Name, Osbaldo RASCON Primary Care Provider [phone] Reason for Visit * Reason Onset Date Comments Med Refill 03/10/2025 Encounter Details Date Type Department Care Team ([facility] st Contact Info) Description 03/10/2025 Telephone [facility] MEDICINE 230 [place], [place] [phone] Name, MD Osbaldo 230 [place] [address] Med Refill Social History Tobacco Use Types [...] Telephone Encounter - Shruti Harrington LPN - 03/10/2025 10:23 AM EDT Medication was discontinued on 02/23/25 therapy complete * Telephone Encounter - Brent De La Torre - 03/10/2025 10:21 AM EDT TC from pt requesting medication refill. Medications needing refill: gabapentin (Neurontin) 300 MG capsule To be sent to: [facility] - [place], [place] - [address] [place] [address] documented in this encounter Plan of Treatment Upcoming Encounters Date Type Department Care Team (Late st Contact Info) Description 08/15/2025 11:15 AM EST Office Visit [address] [address] Name, MD Osbaldo [address] [place] [address] 11/21/2025 8:30 AM EST Clinical Support [address] [address] Juliana Pinedo, TOÑO documented as of this [...] documented as of this encounter Care Teams Mattress Maker Relationship Specialty Start Date End Date Name, MD Osbaldo 230 [place] [address] PCP - General Family Medicine 09/02/19 documented as of this encounter
--- OUTSIDE RECORDS SUMMARY | 2025-07-18 20:55 | XMS_ITS | Encounter Summary ---
Author Organization [employer] Address 75 [facility] 7t [place] [address] Care Team Providers Care Head Animal Trainer Name Role Phone Name, Osbaldo RASCON Primary Care Provider [phone] Reason for Visit * Reason Onset Date Comments Med Refill 04/22/2024 Encounter Details Date Type Department Care Team ([facility] st Contact Info) Description 04/22/2024 Refill [facility] MEDICINE 230 [place], [place] [phone] Name, MD Osbaldo 230 [place] [address] Essential (primary) hypertension Social History Tobacco Use [...] Description 08/15/2025 11:15 AM EST Office Visit [address] [address] Name, MD Osbaldo [address] [place] [address] 11/21/2025 8:30 AM EST Clinical Support [address] [address] Juliana Pinedo RN documented as of this encounter Goals Goal Patient Goal Type Associated Problems Recent Progress Patient-Stated? Author Record your blood pressure once per day Blood Pressure No PuiaMichaelLilian, PharmD Blood Pressure < 140/90 Blood Pressure 142/89( 025 9:57 AM EDT) No Michael Baughyssa, PharmD documented as of this encounter Visit Diagnoses Diagnosis Essential (primary) hypertension Unspecified essential hypertension documented in this encounter Additional Health Concerns Assessment Noted Time PHQ-9 Depression Total Score: 0 02/09/20 24 3:17 PM EDT documented as of this encounter Care Teams Head Animal Trainer Relationship Specialty Start Date End Date NameOsbaldo MD [address] [place] [address] PCP - General Family Medicine 09/02/19 documented as of this encounter
--- OUTSIDE RECORDS SUMMARY | 2025-07-18 20:55 | XMS_ITS | Encounter Summary ---
Author Organization [employer] Address 75 [facility] 7t [place] [address] Care Team Providers Care Proof Coins Inspector Name Role Phone Name, Osbaldo RASCON Primary Care Provider [phone] Lilian Baugh PharmD Unavailable [phone] Reason for Visit * Reason Onset Date Comments Med Refill 01/29/2024 Encounter Details Date Type Department Care Team (Late st Contact Info) Description 01/29/2024 Refill [facility] MEDICINE 230 [place], [place] [phone] Name, MD Osbaldo 230 [place] [address] Essential (primary) hypertension Social History Tobacco Use [...] Description 08/15/2025 11:15 AM EST Office Visit [address] [address] NameOsbaldo MD [address] [place] [address] 11/21/2025 8:30 AM EST Clinical Support [address] [address] Juliana Pinedo, TOÑO documented as of this [...] documented as of this encounter Care Teams Proof Coins Inspector Relationship Specialty Start Date End Date Osbaldo Gentile MD [address] [place] [address] PCP - General Family Medicine 09/02/19 Lilian Baugh, PharmD [address] [place] [address] Pharmacist Internal Medicine 05/02/23 02/24/24 documented as of this encounter
--- OUTSIDE RECORDS SUMMARY | 2025-07-18 20:55 | XMS_ITS | Encounter Summary ---
Author Organization [employer] Address [address] [place] [address] 7t [place] [address] Care Team Providers Care Reconsignment Clerk Name Role Phone Name, Osbaldo RASCON Primary Care Provider [phone] Lilian Baugh PharmD Unavailable [phone] Reason for Visit * Reason Comments Med Refill Encounter Details Date Type Department Care Team (Late st Contact Info) Description 03/03/2023 Refill [facility] MEDICINE 230 [place], [place] [phone] Name, MD Osbaldo 230 [place] [address] Lumbago with sciatica, left side Social History [...] 08/15/2025 11:15 AM EST Office Visit [address] [address] Name, MD [place] [address] 11/21/2025 8:30 AM EST Clinical Support [address] [address] Juliana Pinedo, TOÑO documented as of this encounter Visit Diagnoses Diagnosis Lumbago with sciatica, left side documented in this encounter Additional Health Concerns Assessment Noted Time PHQ-9 Depression Total Score: 8 01/21/20 3:35 PM EDT documented as of this encounter Care Teams Reconsignment Clerk Relationship Specialty Start Date End Date Name, MD [place] [address] PCP - General Family Medicine 09/02/19 Lilian Baugh PharmD [address] [place] [address] Pharmacist Internal Medicine 05/02/23 02/24/24 documented as of this encounter
--- OUTSIDE RECORDS SUMMARY | 2025-07-18 20:55 | XMS_ITS | Encounter Summary ---
Author Organization [employer] Address 75 [facility] 7t [place] [address] Care Team Providers Care Health Administrator Name Role Phone Name, Osbaldo RASCON Primary Care Provider [phone] Reason for Visit * Reason Onset Date Comments Med Refill 03/08/2025 Encounter Details Date Type Department Care Team ([facility] st Contact Info) Description 03/08/2025 Refill [facility] MEDICINE 230 [place], [place] [phone] Darcie Cunha MD 230 [place], [place] [phone] Chronic low back pain, unspecified back pain [...] Description 08/15/2025 11:15 AM EST Office Visit [address] [address] Name, MD Osbaldo [address] [place] [address] 11/21/2025 8:30 AM EST Clinical Support [address] [address] Juliana Pinedo, TOÑO documented as of this [...] as of this encounter Care Teams Health Administrator Relationship Specialty Start Date End Date NameOsbaldo MD [address] [place] [address] PCP - General Family Medicine 09/02/19 documented as of this encounter
--- OUTSIDE RECORDS SUMMARY | 2025-07-18 20:55 | XMS_ITS | Encounter Summary ---
Author Organization [employer] Address [address] [place] [address] 7t [place] [address] Care Team Providers Care General Clerk Name Role Phone Name, Osbaldo RASCON Primary Care Provider [phone] Lilian Baugh PharmD Unavailable [phone] Reason for Visit * Reason Onset Date Comments Appointment Request 01/02/2023 Encounter Details Date Type Department Care Team ([facility] st Contact Info) Description 01/02/2023 Telephone [facility] MEDICINE 230 [place], [place] [phone] Name, MD Osbaldo 230 [place] [address] Appointment Request Social History Tobacco Use Types [...] pt requesting a office visit with PCP. Administrative Assistant Data Entry attempted to book appt but no available appt. Please contact pt at [phone] documented in this encounter Plan of Treatment Upcoming Encounters Date Type Department Care Team (Late st Contact Info) Description 08/15/2025 11:15 AM EST Office Visit [address] [address] Name, MD Osbaldo [address] [place] [address] 11/21/2025 8:30 AM EST Clinical Support [address] [address] Juliana Pinedo, TOÑO documented as of this encounter Visit Diagnoses Not on filedocumented in this encounter Care Teams General Clerk Relationship Specialty Start Date End Date Name, MD Osbaldo [address] [place] [address] PCP - General Family Medicine 09/02/19 Lilian Baugh PharmD [address] [place] [address] Pharmacist Internal Medicine 05/02/23 02/24/24 documented as of this encounter
--- OUTSIDE RECORDS SUMMARY | 2025-07-18 20:55 | XMS_ITS | Encounter Summary ---
Author Organization [employer] Address 75 [facility] 7t [place] [address] Care Team Providers Care Hotel Housekeeper Name Role Phone Name, Osbaldo RASCON Primary Care Provider [phone] Reason for Visit * Reason Onset Date Comments Med Refill 07/22/2024 Encounter Details Date Type Department Care Team ([facility] st Contact Info) Description 07/22/2024 Refill [facility] MED[facility]INE 230 [place], [place] [phone] Betsy Nino MD 230 [place], [place] [phone] Allergic rhinitis, unspecified seasonality, unspecified trigger Social [...] 08/15/2025 11:15 AM EST Office Visit [address] [address] NameOsbaldo MD [address] [place] [address] 11/21/2025 8:30 AM EST Clinical Support [address] [address] Juliana Pinedo, TOÑO documented as of this [...] documented as of this encounter Care Teams Hotel Housekeeper Relationship Specialty Start Date End Date Osbaldo Gentile MD [address] [place] [address] PCP - General Family Medicine 09/02/19 documented as of this encounter
--- OUTSIDE RECORDS SUMMARY | 2025-07-18 20:55 | XMS_ITS | Encounter Summary ---
Author Organization [employer] Address 75 [facility] 7t [place] [address] Care Team Providers Care Cable Maker Name Role Phone Name, Osbaldo RASCON Primary Care Provider [phone] Lilian Baugh PharmD Unavailable [phone] Reason for Visit * Reason Onset Date Comments Med Refill 01/29/2024 Encounter Details Date Type Department Care Team (Late st Contact Info) Description 01/29/2024 Refill [facility] MEDICINE 230 [place], [place] [phone] Betsy Nino MD 230 [place], [place] [phone] Asthma, unspecified asthma severity, unspecified whether complicated, [...] Description 08/15/2025 11:15 AM EST Office Visit [address] [address] NameOsbaldo MD [address] [place] [address] 11/21/2025 8:30 AM EST Clinical Support [address] [address] Juliana Pinedo RN documented as of this [...] documented as of this encounter Care Teams Cable Maker Relationship Specialty Start Date End Date Osbaldo Gentile MD [address] [place] [address] PCP - General Family Medicine 09/02/19 Lilian Baugh, PharmD [address] [place] [address] Pharmacist Internal Medicine 05/02/23 02/24/24 documented as of this encounter
--- OUTSIDE RECORDS SUMMARY | 2025-07-18 20:55 | XMS_ITS | Encounter Summary ---
Author Organization [employer] Address 75 [facility] 7t [place] [address] Care Team Providers Care Cash Register Repairer Name Role Phone Name, Osbaldo RASCON Primary Care Provider [phone] Reason for Visit * Reason Onset Date Comments Med Refill 04/22/2024 Encounter Details Date Type Department Care Team ([facility] st Contact Info) Description 04/22/2024 Refill [facility] MEDICINE 230 [place], [place] [phone] Name, MD Osbaldo 230 [place] [address] Social History Tobacco Use Types Packs/Day Years [...] 08/15/2025 11:15 AM EST Office Visit [address] [address] Name, MD Osbaldo [address] [place] [address] 11/21/2025 8:30 AM EST Clinical Support [address] [address] Juliana Pinedo, TOÑO documented as of this [...] documented as of this encounter Care Teams Cash Register Repairer Relationship Specialty Start Date End Date Name, MD Osbaldo [address] [place] [address] PCP - General Family Medicine 09/02/19 documented as of this encounter
--- OUTSIDE RECORDS SUMMARY | 2025-07-18 20:55 | XMS_ITS | Encounter Summary ---
Author Organization [employer] Address 75 [facility] 7t [place] [address] Care Team Providers Care Vending Machine Mechanic Name Role Phone Name, Osbaldo RASCON Primary Care Provider [phone] Lilian Baugh PharmD Unavailable [phone] Encounter Details Date Type Department Care Team ([facility] st Contact Info) Description 10/31/2023 Abstract [facility] MEDICINE 230 [place], [place] [phone] Name, MD Osbaldo 230 [place] [address] Social History Tobacco Use Types Packs/Day Years [...] t he electric, gas, oil or water [employer] threatened to shut off services in your [...] Description 08/15/2025 11:15 AM EST Office Visit [address] [address] NameOsbaldo MD [address] [place] [address] 11/21/2025 8:30 AM EST Clinical Support [address] [address] Juliana Pinedo, TOÑO documented as of this [...] documented as of this encounter Care Teams Vending Machine Mechanic Relationship Specialty Start Date End Date Osbaldo Gentile MD [address] [place] [address] PCP - General Family Medicine 09/02/19 FinaiaLilian, PharmD [address] [place] [address] Pharmacist Internal Medicine 05/02/23 02/24/24 documented as of this encounter
--- OUTSIDE RECORDS SUMMARY | 2025-07-18 20:55 | XMS_ITS | Encounter Summary ---
Author Organization [employer] Address 75 [facility] 7t [place] [address] Care Team Providers Care City Editor Name Role Phone Name, Osbaldo RASCON Primary Care Provider [phone] Reason for Visit * Reason Onset Date Comments Med Refill 06/07/2024 Encounter Details Date Type Department Care Team ([facility] st Contact Info) Description 06/07/2024 Refill [facility] MED[facility]INE 230 [place], [place] [phone] Name, MD Osbaldo 230 [place] [address] Social History Tobacco Use Types Packs/Day Years [...] 08/15/2025 11:15 AM EST Office Visit [address] [address] Name, MD Osbaldo [address] [place] [address] 11/21/2025 8:30 AM EST Clinical Support [address] [address] Juliana Pinedo, TOÑO documented as of this [...] documented as of this encounter Care Teams City Editor Relationship Specialty Start Date End Date Name, MD Osbaldo [address] [place] [address] PCP - General Family Medicine 09/02/19 documented as of this encounter
--- OUTSIDE RECORDS SUMMARY | 2025-07-18 20:55 | XMS_ITS | Encounter Summary ---
Author Organization [employer] Address 75 [facility] 7t [place] [address] Care Team Providers Care Drill Grinder Name Role Phone Name, Osbaldo RASCON Primary Care Provider [phone] Reason for Visit * Reason Onset Date Comments Med Refill 03/15/2025 Encounter Details Date Type Department Care Team ([facility] st Contact Info) Description 03/15/2025 Refill [facility] MEDICINE 230 [place], [place] [phone] Name, MD Osbaldo 230 [place] [address] Gastroesophageal reflux disease, unspecified whether esophagitis present [...] Description 08/15/2025 11:15 AM EST Office Visit [address] [address] Osbaldo Gentile MD [address] [place] [address] 11/21/2025 8:30 AM EST Clinical Support [address] [address] Juliana Pinedo, TOÑO documented as of this [...] documented as of this encounter Care Teams Drill Grinder Relationship Specialty Start Date End Date Osbaldo Gentile MD [address] [place] [address] PCP - General Family Medicine 09/02/19 documented as of this encounter
--- OUTSIDE RECORDS SUMMARY | 2025-07-18 20:55 | XMS_ITS | Encounter Summary ---
Author Organization [employer] Address [address] [facility] 7t [place] [address] Care Team Providers Care Computer Methods Analyst Name Role Phone Name, Osbaldo RASCON Primary Care Provider [phone] Reason for Visit * Reason Onset Date Comments Med Refill 04/13/2024 Encounter Details Date Type Department Care Team ([facility] st Contact Info) Description 04/13/2024 Refill [facility] MEDICINE [address] [place], [place] [phone] Name, MD Osbaldo [address] [place] [address] Social History Tobacco Use Types Packs/Day Years [...] Description 08/15/2025 11:15 AM EST Office Visit [address] [address] Name, MD Osbaldo [address] [place] [address] 11/21/2025 8:30 AM EST Clinical Support [address] [address] Juliana Pinedo, TOÑO documented as of this [...] documented as of this encounter Care Teams Computer Methods Analyst Relationship Specialty Start Date End Date Name, MD Osbaldo [address] [place] [id number] PCP - General Family Medicine 09/02/19 documented as of this encounter
--- OUTSIDE RECORDS SUMMARY | 2025-07-18 20:55 | XMS_ITS | Encounter Summary ---
Author Organization [facility] [employer] Address [address] [place] [address] 7t [place] [address] Care Team Providers Care Supervisor [employer] Name Role Phone Osbaldo Gentile MD Primary Care Provider [phone] Lilian Baugh PharmD Unavailable [phone] Reason for Visit * Reason Onset Date Comments Durable Medical Equipment 01/01/2023 Encounter Details Date Type Department Care Team ([facility] st Contact Info) Description 01/01/2023 Telephone [facility] MEDICINE [address] [place], [place] [phone] Name, MD Osbaldo [address] [place] [address] Durable Medical Equipment Social History Tobacco Use [...] on nebulizer Machine Please contact pt at [phone] documented in this encounter Plan of Treatment Upcoming Encounters Date Type Department Care Team (Late st Contact Info) Description 08/15/2025 11:15 AM EST Office Visit [address] [address] Name, MD Osbaldo [address] [place] [address] 11/21/2025 8:30 AM EST Clinical Support [address] [address] Juliana Pinedo, RN documented as of this encounter Visit Diagnoses Not on filedocumented in this encounter Care Teams Supervisor [employer] Relationship Specialty Start Date End Date Name, MD Osbaldo [address] [place] [phone] PCP - General Family Medicine 09/02/19 Lilian Baugh PharmD [address] [place] [phone] Pharmacist Internal Medicine 05/02/23 02/24/24 documented as of this encounter
--- OUTSIDE RECORDS SUMMARY | 2025-07-18 20:55 | XMS_ITS | Encounter Summary ---
Author Organization [employer] Address [address] [facility] 7t [place] [address] Care Team Providers Care Meter Technician Name Role Phone Name, Osbaldo RASCON Primary Care Provider [phone] Reason for Visit * Reason Onset Date Comments Med Refill 09/01/2024 Encounter Details Date Type Department Care Team (Late st Contact Info) Description 09/01/2024 Refill [facility] [address] [place], [place] [phone] Name, MD Osbaldo [address] [place] [address] Chronic low back pain, unspecified back pain [...] Description 08/15/2025 11:15 AM EST Office Visit [address] [address] Name, MD Osbaldo [address] [place] [phone] 11/21/2025 8:30 AM EST Clinical Support [address] [address] Juliana Pinedo RN documented as of this [...] documented as of this encounter Care Teams Meter Technician Relationship Specialty Start Date End Date NameOsbaldo MD [address] [place] [phone] PCP - General Family Medicine 09/02/19 documented as of this encounter
--- OUTSIDE RECORDS SUMMARY | 2025-07-18 20:55 | XMS_ITS | Encounter Summary ---
Author Organization [employer] Address [address] [facility] [address]t [place] [address] Care Team Providers Care Reinsurance Accountant Name Role Phone Name, Osbaldo RASCON Primary Care Provider [phone] Reason for Visit * Reason Onset Date Comments Med Refill 06/28/2024 Encounter Details Date Type Department Care Team ([facility] st Contact Info) Description 06/28/2024 Refill [facility] MEDICINE [address] [place], [place] [phone] Name, MD Osbaldo [address] [place] [address] Moderate asthma with status asthmaticus, unspecified whether [...] Description 08/15/2025 11:15 AM EST Office Visit [address] [address] Name, MD Osbaldo [address] [place] [address] 11/21/2025 8:30 AM EST Clinical Support [address] [address] Juliana Pinedo, TOÑO documented as of this [...] documented as of this encounter Care Teams Reinsurance Accountant Relationship Specialty Start Date End Date NameOsbaldo MD [address] [place] [phone] PCP - General Family Medicine 09/02/19 documented as of this encounter
--- OUTSIDE RECORDS SUMMARY | 2025-07-18 20:55 | XMS_ITS | Encounter Summary ---
Author Organization [employer] Address [address] [facility] 7t [place] [address] Care Team Providers Care Zipper Machine Operator Name Role Phone Name, Osbaldo RASCON Primary Care Provider [phone] Reason for Visit * Reason Onset Date Comments Med Refill 04/27/2025 Encounter Details Date Type Department Care Team ([facility] st Contact Info) Description 04/27/2025 Refill [facility]S [address] [place], [place] [phone] Milly Lopez NP 230 [place] [address] Chronic low back pain, unspecified back pain [...] 08/15/2025 11:15 AM EST Office Visit [address] [address] NameOsbaldo MD [address] [place] [phone] 11/21/2025 8:30 AM EST Clinical Support [address] [address] Juliana Pinedo, TOÑO documented as of this [...] documented as of this encounter Care Teams Zipper Machine Operator Relationship Specialty Start Date End Date Osbaldo Gentile MD [address] [place] [phone] PCP - General Family Medicine 09/02/19 documented as of this encounter
== END 2025-07-18 17:51 | disposition home or self-care (01) ==
LOC: HO.HHCLNP 17:50
PROVIDERS: Visit Provider Internal Medicine Geriatric Medicine
DX: Z79.891 Long term (current) use of opiate analgesic (principal)
CPT/HCPCS: 80307